=== PATIENT | male | born 1955 | race Caucasian/White ===

== ENCOUNTER → 2016-09-15 | Outpatient (CLI) | payer BC ==
[~2016-09-15] MED LIST: BECL0.072; BENZ200C2 PO; DVN80 PO; FLV1 PO; INSDGI SC; INSDGIPEN SC; INSU1INJ7 SC; INSUINJ14 SC; INSUINJ7 SC; LEVO125T4 PO; LEVO150T9 PO; LEVO175T PO; MTH25 PO; OMEP20CA59 PO; QVRINH40 INH; VALS-56 PO
[2016-09-15 10:02] LABS: BLOOD UREA NITROGEN 21 mg/dl (7-18); CALCIUM 8.8 mg/dl (8.5-10.1); CARBON DIOXIDE 28 mmol/L (21-32); CHLORIDE 103 mmol/L (98-107); GLUCOSE 290 mg/dl (70-99); POTASSIUM 4.5 mmol/L (3.5-5.1); SODIUM 138 mmol/L (136-145)
[2016-09-15 10:06] LABS: ESTIMATED AVERAGE GLUCOSE 180 mg/dl; HA1C FLAG Normal (Normal)
== END | disposition home or self-care (01) ==
LOC: C.LAB1850 07:35
PROVIDERS: ATTEND Internal Medicine
DX: E10.9 Type 1 diabetes mellitus without complications (principal); E03.9 Hypothyroidism, unspecified; I10 Essential (primary) hypertension

== ENCOUNTER → 2016-12-15 | Outpatient (CLI) | payer BC ==
[~2016-12-15] MED LIST changes: -LEVO125T4 PO; +LEVO125T5 PO
[2016-12-15 09:50] LABS: BASO % 0.7 %; BASO ABS # 0.06 K/uL (0-0.2); COMPLETE YES; EOS % 10.2 %; HEMATOCRIT 40.2 % (42-52); IG% 0.1 %; LYMPH % 20.1 %; LYMPH ABS # 1.65 K/uL (1.2-3.4); MEAN CELL VOLUME 95.9 fL (80-100); MEAN CORPUSCULAR HEMOGLOBIN 31.7 pg (25-34); MEAN CORPUSCULAR HGB CONC 33.1 g/dl (32-36); MEAN PLATELET VOLUME 9.1 fL (7.4-10.4); NEUT % 64.9 %; PLATELET COUNT 248 K/uL (130-400); RED BLOOD COUNT 4.19 M/uL (4.7-6.1)
[2016-12-15 10:07] LABS: CALCIUM 9.1 mg/dl (8.5-10.1)
[2016-12-15 10:10] LABS: ALT/SGPT 27 U/L (12-78); AST/SGOT 26 U/L (15-37); BLOOD UREA NITROGEN 21 mg/dl (7-18); BUN/CREATININE RATIO 17.4 (10-20); CARBON DIOXIDE 29 mmol/L (21-32); CHLORIDE 104 mmol/L (98-107); CHOLESTEROL 166 mg/dl (0-200); GLUCOSE 186 mg/dl (70-99); POTASSIUM 4.5 mmol/L (3.5-5.1); SODIUM 138 mmol/L (136-145); TRIGLYCERIDES 93 mg/dl (0-150); VERY LOW DENSITY LIPOPROT CALC 19 mg/dl
[2016-12-15 10:20] LABS: ALB/GLOB RATIO 1.2 (0.9-2); ALKALINE PHOSPHATASE 105 U/L (45-117); CHOLESTEROL/HDL RATIO 2.7; HDL CHOLESTEROL 61 mg/dl; LDL CHOLESTEROL CALCULATED 86 mg/dl; THYROID STIMULATING HORMONE 0.241 uIu/ml (0.300-4.500)
[2016-12-15 10:22] LABS: ESTIMATED AVERAGE GLUCOSE 137 mg/dl; HA1C FLAG Normal (Normal)
[2016-12-15 10:31] LABS: RATIO 15.5 mcg/mg (0-30.0)
== END | disposition home or self-care (01) ==
LOC: C.LAB1850 08:03
PROVIDERS: ATTEND Internal Medicine
DX: E03.9 Hypothyroidism, unspecified (principal); E10.9 Type 1 diabetes mellitus without complications; M05.9 Rheumatoid arthritis with rheumatoid factor, unspecified

== ENCOUNTER 2017-05-20 15:29 | Emergency (ER) | payer BC ==
[~2017-05-20] VITALS: Ht 170.2 cm; Wt 57.2 kg
[~2017-05-20 15:29] MED LIST changes: -FLV1 PO; -INSDGI SC; -LEVO125T5 PO; -LEVO150T9 PO; -MTH25 PO; -QVRINH40 INH; -VALS-56 PO
[2017-05-20 15:32] VITALS: TEMP 36.5; O2SAT 99; Ht 170.2 cm; Wt 57.2 kg
--- NOTE | 2017-05-20 15:42 | EMERGENCY ROOM VISIT NOTE ---
History Report prepared by Cathleen: Valentine Thorne Under the Supervision of: Dr. Dina Rehman D.O. First contact with patient: 15:30 Chief Complaint: HYPOGLYCEMIA Stated Complaint: LOW SUGAR History of Present Illness The patient is a 61 year old male who presents to the Emergency Room with complaints of an episode of hypoglycemia beginning just [employer]. The patient states that he is an insulin dependent diabetic and has a history of rheumatoid arthritis. Per EMS, the patient was found after reports of driving erratically in his car and was not responding to questions normally. They report that his blood sugar was found to be 35 at the time of arrival. The patient states that he remembers being at work today before his called him to tell him that he needed to eat because of his low blood sugar. He reports that he remembers microwaving his food but not consuming it. The patient denies any nausea, sweats , dizziness, chest pain, shortness of breath, recent illness, cough, and chills. Neither police nor bystanders verbalized to EMS any seizure-like activity, just the patient appeared to be staring and not responding appropriately. Source of History: patient Onset: just [employer] Position: other (global) Symptom Intensity: 35 Quality: other (hypoglycemia) Timing: other (episode) Associated Symptoms: No chills, No cough, No chest pain, No SOB, No nausea Note: The patient denies any sweats, dizziness, recent illness. Review of Systems See HPI for pertinent positives & negatives. A total of 10 systems reviewed and were otherwise negative. Past Medical & Surgical Medical Problems: (1) IDDM (insulin dependent diabetes mellitus) (2) Rheumatoid arthritis Family History No pertinent family history stated. Social History Alcohol Use: none Drug Use: none Marital Status: Occupation Status: employed Current/Historical Medications Scheduled Folic Acid (Folic Acid), 1 MG PO DAILY Insulin Glargine (Lantus), 11 UNITS SC QAM Insulin Glargine (Lantus), 5-6 UNITS SC QPM Insulin Regular (Human) (Novolin R U-100), 6 UNITS SC QAM Insulin Regular (Human) (Novolin R U-100), 5-6 UNITS SC QPM Levothyroxine Sodium (Levothyroxine Sodium), 125 MCG PO 2XWK Levothyroxine Sodium (Levothyroxine Sodium), 150 MCG PO 5XWK Methotrexate (Methotrexate), 12.5 MG PO WK Valsartan (Valsartan), 40 MG PO DAILY Scheduled PRN Beclomethasone Dip (Qvar), 2 PUFFS INH BID PRN for SOB/Wheezing Allergies Coded Allergies: No Known Allergies (Unverified , 04/30/12) Physical Exam Vital Signs Date Time Temp Pulse Resp B/P (MAP) Pulse Ox O2 Delivery O2 Flow Rate FiO2 05/20/17 17:24 84 18 157/75 05/20/17 15:32 36.5 95 18 182/89 99 Room Air Physical Exam GENERAL: alert, well appearing, well nourished, no distress, non-toxic EYE EXAM: normal conjunctiva, PERRL and EOM's grossly intact OROPHARYNX: no exudate, no erythema, lips, buccal mucosa, and tongue normal and mucous membranes are moist NECK: supple, no nuchal rigidity, no adenopathy, non-tender LUNGS: Clear to auscultation. Normal chest wall mechanics HEART: no murmurs, S1 normal and S2 normal ABDOMEN: abdomen soft, non-tender, normo-active bowel sounds, no masses, no rebound or guarding. BACK: Back is symmetrical on inspection and there is no deformity, no midline tenderness, no CVA tenderness. SKIN: no rashes and no bruising UPPER EXTREMITIES: upper extremities are grossly normal. LOWER EXTREMITIES: No pitting edema. NEURO EXAM: Normal sensorium, cranial nerves II-XII grossly intact, normal speech, no gross weakness of arms, no gross weakness of legs. Medical Decision & Procedures Laboratory Results Test 05/20/17 17:02 Bedside Glucose 198 mg/dl (70-99) Laboratory results per my review. ECG Indication: syncope Rate (beats per minute): 86 Rhythm: sinus rhythm Findings: T-wave inversion (lead 3 and avf), other (normal axis, normal intervals) Comparison ECG Date: 30-APR-2012 Change: no significant change ED Course 1530: The patient was evaluated in room A11. A complete history and physical exam was performed. 1708: I reevaluated and updated the patient. 1713: Upon reevaluation, the patient is feeling better. I discussed the findings and the treatment plan with the patient. He verbalizes agreement and understanding. The patient was discharged home. Medical Decision Differential diagnosis: Etiologies such as vasovagal event, infection, hypoglycemia, electrolyte abnormalities, cardiac sources, intracerebral event, toxicologic, neurologic, as well as others were entertained. Patient well-appearing here, no recent other symptoms to suggest occult infectious etiology. Patient did not eat and has a history of hypoglycemic episodes as a result. No recent medication changes. Patient with a normal nonfocal neuro exam at bedside, doubt CVA. Doubt left side abnormality, doubt bacteremia/sepsis, patient monitored on telemetry while eating and rechecking sugars no evidence of dysrhythmia or abnormal vital signs. Doubt ACS, dissection, AAA, tamponade, effusion leading to altered mental status and episode today. Advised patient need for frequent Accu-Cheks, eating and drinking at regular intervals to avoid any recurrent hypoglycemic events, encouraged him to follow-up with his family doctor whom he has been working with in trying to obtain a continuous glucose monitor. Discussed symptoms to watch and return for, he and family verbalized understanding were agreeable with plan. Medication Reconcilliation Current Medication List: was personally reviewed by me Blood Pressure Screening Patient's blood pressure: Elevated blood pressure Blood pressure disposition: Referred to PCP Impression Primary Impression: Hypoglycemia Additional Impression: Altered mental status Scribe Attestation The scribe's documentation has been prepared under my direction and personally reviewed by me in its entirety. I confirm that the note above accurately reflects all work, treatment, procedures, and medical decision making performed by me. Departure Information Dispostion Home / Self-Care Referrals Alfred Gage M.D. (PCP) Patient Instructions My [facility] Additional Instructions Please eat at regular intervals and adhere to a diabetic diet. Please check your sugar regularly to avoid any acute drops in your blood sugar. Please drink plenty of water. Please follow up with your family doctor and continue your efforts to trying get continuous insulin monitoring. If you have any recurrent episodes of low blood sugar, or begin feel symptomatic, if you develop episodes of high blood sugar, develop headaches, dizziness, vomiting, chest pain, trouble breathing, or you've any other new concerns, please return the emergency room. Problem Qualifiers Additional Impression: Altered mental status Altered mental status type: transient alteration of awareness Qualified Codes : R40.4 - Transient alteration of awareness
[2017-05-20] MEDS ORDERED: INSDGI SC ×2 (16:28)
[2017-05-20] MEDS ORDERED: MTH25 PO (16:28)
[2017-05-20] MEDS ORDERED: LEVO125T4 PO (16:28)
[2017-05-20] MEDS ORDERED: INSUINJ7 SC ×2 (16:28)
[2017-05-20] MEDS ORDERED: QVRINH40 INH (16:28)
[2017-05-20] MEDS ORDERED: VALS-56 PO (16:28)
[2017-05-20] MEDS ORDERED: FLV1 PO (16:28)
[2017-05-20] MEDS ORDERED: LEVO150T9 PO (16:28)
[2017-05-20 17:24] VITALS: BP 157/75; PULSE 84
== END 2017-05-20 17:26 | disposition home or self-care (01) ==
LOC: EDBD 15:29 → C.EDA 15:29
DX: E16.2 Hypoglycemia, unspecified (principal); R40.4 Transient alteration of awareness; E11.9 Type 2 diabetes mellitus without complications; Z79.4 Long term (current) use of insulin

== ENCOUNTER → 2017-05-29 | Outpatient (CLI) | payer BC ==
[~2017-05-29] MED LIST changes: -BECL0.072; -BENZ200C2 PO; -DVN80 PO; +FLV1 PO; +INSDGI SC; -INSDGIPEN SC; -INSU1INJ7 SC; -INSUINJ14 SC; +LEVO125T4 PO; +LEVO150T9 PO; -LEVO175T PO; +MTH25 PO; -OMEP20CA59 PO; +QVRINH40 INH; +VALS-56 PO
[2017-05-29 18:14] LABS: BLOOD UREA NITROGEN 27 mg/dl (7-18); BUN/CREATININE RATIO 20.6 (10-20); CALCIUM 9.4 mg/dl (8.5-10.1); CARBON DIOXIDE 30 mmol/L (21-32); CHLORIDE 102 mmol/L (98-107); CHOLESTEROL 186 mg/dl (0-200); GLUCOSE 185 mg/dl (70-99); POTASSIUM 4.4 mmol/L (3.5-5.1); SODIUM 136 mmol/L (136-145)
[2017-05-29 18:24] LABS: CHOLESTEROL/HDL RATIO 2.6; HDL CHOLESTEROL 72 mg/dl; LDL CHOLESTEROL CALCULATED 100 mg/dl; TRIGLYCERIDES 68 mg/dl (0-150); VERY LOW DENSITY LIPOPROT CALC 14 mg/dl
[2017-05-30 05:56] LABS: ESTIMATED AVERAGE GLUCOSE 134 mg/dl; HA1C FLAG Normal (Normal)
== END | disposition home or self-care (01) ==
LOC: C.LAB1850 16:21
PROVIDERS: ATTEND Internal Medicine
DX: Z00.00 Encounter for general adult medical examination without abnormal findings (principal); E03.9 Hypothyroidism, unspecified; E10.9 Type 1 diabetes mellitus without complications; E78.5 Hyperlipidemia, unspecified; I10 Essential (primary) hypertension

== ENCOUNTER 2017-08-09 09:00 | Emergency (ER) | payer BC ==
[~2017-08-09] VITALS: Ht 170.2 cm; Wt 57.0 kg
[~2017-08-09 09:00] MED LIST changes: -LEVO125T4 PO; +LEVO125T5 PO
[2017-08-09 09:08] VITALS: TEMP 36.5
[2017-08-09 09:15] VITALS: O2SAT 100; Ht 170.2 cm; Wt 57.0 kg
[2017-08-09] MEDS ORDERED: OPTIRAY 320 IV PRN (09:15)
--- NOTE | 2017-08-09 09:23 | EMERGENCY ROOM VISIT NOTE ---
History Report prepared by Cathleen: Lacie Green Under the Supervision of: Dr. Kee Evangelista M.D. First contact with patient: 09:05 Chief Complaint: ALTERED MENTAL STATUS Stated Complaint: ALTERED MENTAL STATUS History of Present Illness The patient is a 62 year old white male with a past medical history of diabetes and rheumatoid arthritis who presents to the ED with a cc of resolved confusion beginning around 0800 this morning. Per the patient's coworker the patient was seen stumbling down the hallway at work with a gash on his head. She states that the patient was confused and thought that this was due to low blood sugar. The patient's coworker notes that she gave the patient sugar tablets, but states that since the patient was still confused they called for an ambulance. She denies seeing the patient prior to 0800 this morning. The patient states that he remembers going to work this morning and remembers taking his insulin. He denies any drug, tobacco, or alcohol use. The patient denies any history of seizures. He denies any prior surgeries. The patient denies taking any blood thinners. Per EMS the patient's blood sugar was 219 mg/dL upon arrival. Source of History: patient Onset: 0800 this morning Position: other (global) Quality: other (confusion) Timing: resolved Review of Systems See HPI for pertinent positives and negatives. A total of ten systems were reviewed and were otherwise negative. Past Medical & Surgical Medical Problems: (1) IDDM (insulin dependent diabetes mellitus) (2) Rheumatoid arthritis Family History No pertinent family history stated. Social History Smoking Status: Never Smoker Alcohol Use: none Drug Use: none Marital Status: Occupation Status: employed Current/Historical Medications Scheduled Amoxicillin & Pot Clavulanate (Augmentin 875-125 mg), 875 MG PO BID Folic Acid (Folic Acid), 1 MG PO DAILY Insulin Glargine (Lantus), 16 UNITS SC DAILY Insulin Human Regular (Humulin R), 5-6 UNITS INJ BID Levothyroxine Sodium (Levothyroxine Sodium), 125 MCG PO 2XWK Levothyroxine Sodium (Levothyroxine Sodium), 150 MCG PO 5XWK Methotrexate (Methotrexate), 12.5 MG PO WK Valsartan (Valsartan), 40 MG PO DAILY Scheduled PRN Beclomethasone Dip (Qvar), 2 PUFFS INH BID PRN for SOB/Wheezing Allergies Coded Allergies: No Known Allergies (Unverified , 04/30/12) Physical Exam Vital Signs Date Time Temp Pulse Resp B/P (MAP) Pulse Ox O2 Delivery O2 Flow Rate FiO2 08/09/17 14:45 72 16 119/81 99 Room Air 08/09/17 14:32 77 08/09/17 14:00 72 16 119/81 99 Room Air 08/09/17 12:46 85 18 134/82 98 Room Air 08/09/17 11:00 79 20 118/63 96 Room Air 08/09/17 10:00 87 16 132/76 99 Room Air 08/09/17 09:15 100 Room Air 08/09/17 09:08 96 08/09/17 09:08 36.5 93 21 156/94 94 Room Air Physical Exam GENERAL: Awake, alert, well-appearing, NAD HENT: Very small 1 cm laceration to the left occipital area. Poor dentition. EYES: Normal conjunctiva. Sclera non-icteric. No visual field deficits, no blurry vision or double vision. NECK: Supple. No nuchal rigidity. FROM. RESPIRATORY: CTAB, no rhonchi, wheezing, crackles CARDIAC: RRR, no MRG ABDOMEN: Soft, NTND, BS+ MSK: No chest wall TTP, no LE edema NEURO: CN 2-12 intact, 5/5 upper and lower extremity strength, no dysmetria, no drift, good finger to nose, no sensory deficits. SKIN: No rash or jaundice noted. Medical Decision & Procedures ER Provider Diagnostic Interpretation: Radiology results as stated below per my review and radiologist interpretation: HEAD CT NONCONTRAST CT DOSE: 614.27 mGy.cm HISTORY: Altered mental status. Confusion. TECHNIQUE: Multiaxial CT images of the head were performed without the use of intravenous contrast. Automated exposure control was utilized for this study. A dose lowering technique was utilized adhering to the principles of ALARA. Comparison: None. Findings: Complete opacification of the left frontal sinus, left ethmoid air cells, and left sphenoid sinus. Trace fluid levels within the maxillary sinuses and partial opacification the right ethmoid air cells and right frontal sinus. There are few small fluid levels within the right ethmoid air cells and right frontal sinus. Suspect a 1.9 cm polyp within the left nasal cavity. The mastoid air cells are clear. The calvarium and skull base are intact. The ventricles and sulci are within normal limits. There is no mass, hematoma, midline shift, or acute infarct. Impression: No acute intracranial abnormality. Acute on chronic paranasal sinus disease as described above with probable underlying polyps. Electronically signed by: Jose Eduardo Diaz M.D. 08/09/2017 9:34 AM Dictated Date/Time: 08/09/2017 9:30 AM CHEST ONE VIEW PORTABLE HISTORY: confusion COMPARISON: Chest 04/30/2012. FINDINGS: The heart is normal in size. There are mitral annulus calcifications. The right lung is clear. No pleural effusions. No pneumothorax. Small focal area of increased density within the left lower lobe adjacent to the cardiac apex. This could be due to the overlapping ribs. IMPRESSION: Small focal area of increased density within the left lower lobe which could be due to the overlapping ribs. However, this is asymmetric and is concerning for a developing airspace opacity/pneumonia. Follow-up chest x-ray in one month is recommended to ensure resolution. Electronically signed by: Jose Eduardo Diaz M.D. 08/09/2017 10:13 AM Dictated Date/Time: 08/09/2017 10:11 AM Brain MRI WITH AND WITHOUT CONTRAST HISTORY: ?confusion, altered mental status., neg CT and neg metabolic work up TECHNIQUE: Multiplanar multisequence MRI of the brain was performed both before and after the intravenous administration of contrast. COMPARISON STUDY: Head CT 08/09/2017. FINDINGS: There is no mass, hematoma, midline shift, acute infarct. The major vascular flow voids at the skull base are well-maintained. The ventricles and sulci are within normal limits. Near-complete opacification of the frontal sinuses, ethmoid air cells, and left sphenoid sinus. Trace fluid levels within the maxillary sinuses. Probable underlying polyps within the ethmoid air cells. The mastoid air cells are clear. The orbits are unremarkable. No abnormal enhancement within the brain. IMPRESSION: 1. No acute intracranial abnormality. 2. Acute on chronic paranasal sinus disease as described above. There is suggestion of underlying sinonasal polyps. Electronically signed by: Jose Eduardo Diaz M.D. 08/09/2017 1:59 PM Dictated Date/Time: 08/09/2017 1:53 PM Laboratory Results 08/09/17 09:39 Red Blood Count 3.76, Mean Corpuscular Volume 95.7, Mean Corpuscular Hemoglobin 33.5, Mean Corpuscular Hemoglobin Concent 35.0, Mean Platelet Volume 9.1, Neutrophils (%) (Auto) 75.7, Lymphocytes (%) (Auto) 11.0, Monocytes (%) (Auto) 5.6, Eosinophils (%) (Auto) 6.8, Basophils (%) (Auto) 0.6, Neutrophils # (Auto) 5.43, Lymphocytes # (Auto) 0.79, Monocytes # (Auto) 0.40, Eosinophils # (Auto) 0.49, Basophils # (Auto) 0.04 08/09/17 09:39 Test 08/09/17 00:00 08/09/17 09:20 08/09/17 09:38 08/09/17 09:39 Urine Color YELLOW Urine Appearance CLEAR (CLEAR) Urine pH 6.5 (4.5-7.5) Urine Specific [place] 1.021 (1.000-1.030) Urine Protein NEG (NEG) Urine Glucose (UA) 3+ (NEG) Urine Ketones NEG (NEG) Urine Occult Blood NEG (NEG) Urine Nitrite NEG (NEG) Urine Bilirubin NEG (NEG) Urine Urobilinogen NEG (NEG) Urine Leukocyte Esterase NEG (NEG) Urine Opiates Screen NEG (NEG) Urine Methadone, Qualitative NEG (NEG) Urine Barbiturates NEG (NEG) Urine Phencyclidine (PCP) Level NEG (NEG) Ur Amphetamine/Methamphetamine NEG (NEG) MDMA (Ecstasy) Screen NEG (NEG) Urine Benzodiazepines Screen NEG (NEG) Urine Cocaine Metabolite NEG (NEG) Urine Marijuana (THC) NEG (NEG) Bedside Hemoglobin 12.2 g/dl (14.0-18.0) Bedside Hematocrit 36 % (42-52) Bedside Sodium 138 mEq/L (135-144) Bedside Potassium 4.9 mEq/L (3.3-5.0) Bedside Chloride 103 mEq/L (101-112) Bedside Total CO2 26 mEq/l (24-31) Bedside Blood Urea Nitrogen 21 mg/dl (7-18) Bedside Creatinine 1.1 mg/dl (0.6-1.3) Bedside Glucose (other) 234 mg/dl (70-99) Bedside Ionized Calcium ([place]ary) 1.22 mmol/l (1.12-1.32) Prothrombin Time 10.6 SECONDS (9.0-12.0) Prothromb Time International Ratio 1.0 (0.9-1.1) Activated Partial Thromboplast Time 23.1 SECONDS (21.0-31.0) Partial Thromboplastin Ratio 0.9 Ammonia < 10.0 umol/L (11-32) Salicylates Level < 1.7 mg/dl (2.8-20) Acetaminophen Level < 2 ug/ml (10-30) White Blood Count 7.17 K/uL (4.8-10.8) Red Blood Count 3.76 M/uL (4.7-6.1) Hemoglobin 12.6 g/dL (14.0-18.0) Hematocrit 36.0 % (42-52) Mean Corpuscular Volume 95.7 fL (80-100) Mean Corpuscular Hemoglobin 33.5 pg (25-34) Mean Corpuscular Hemoglobin Concent 35.0 g/dl (32-36) Platelet Count 231 K/uL (130-400) Mean Platelet Volume 9.1 fL (7.4-10.4) Neutrophils (%) (Auto) 75.7 % Lymphocytes (%) (Auto) 11.0 % Monocytes (%) (Auto) 5.6 % Eosinophils (%) (Auto) 6.8 % Basophils (%) (Auto) 0.6 % Neutrophils # (Auto) 5.43 K/uL (1.4-6.5) Lymphocytes # (Auto) 0.79 K/uL (1.2-3.4) Monocytes # (Auto) 0.40 K/uL (0.11-0.59) Eosinophils # (Auto) 0.49 K/uL (0-0.5) Basophils # (Auto) 0.04 K/uL (0-0.2) RDW Standard Deviation 48.3 fL (36.4-46.3) RDW Coefficient of Variation 14.0 % (11.5-14.5) Immature Granulocyte % (Auto) 0.3 % Immature Granulocyte # (Auto) 0.02 K/uL (0.00-0.02) Anion Gap 4.0 mmol/L (3-11) Est Creatinine Clear Calc Drug Dose 52.3 ml/min Estimated GFR () 77.5 Estimated GFR (Non- 66.9 BUN/Creatinine Ratio 18.0 (10-20) Lactic Acid Level 1.5 mmol/L (0.4-2.0) Calcium Level 8.7 mg/dl (8.5-10.1) Magnesium Level 2.2 mg/dl (1.8-2.4) Total Bilirubin 0.7 mg/dl (0.2-1) Direct Bilirubin 0.3 mg/dl (0-0.2) Aspartate Amino Transf (AST/SGOT) 34 U/L (15-37) Alanine Aminotransferase (ALT/SGPT) 32 U/L (12-78) Alkaline Phosphatase 105 U/L (45-117) Troponin I < 0.015 ng/ml (0-0.045) Total Protein 6.7 gm/dl (6.4-8.2) Albumin 3.4 gm/dl (3.4-5.0) Lipase 594 U/L (73-393) Thyroid Stimulating Hormone (TSH) 0.269 uIu/ml (0.300-4.500) Ethyl Alcohol mg/dL < 3.0 mg/dl (0-3) Test 08/09/17 14:41 Bedside Glucose 115 mg/dl (70-99) Laboratory results reviewed by me Medications Administered Medications (Trade) Dose Ordered Sig/Will Route Start Time Stop Time Status Last Admin Dose Admin Diphtheria/ Pertussis/Tetanus Vacc (Adacel Inj) 0.5 ml ONCE ONCE IM. 08/09/17 10:00 08/09/17 10:01 DC 08/09/17 10:09 0.5 ML Amoxicillin/ Clavulanate Potassium (Augmentin Tab) 875 mg NOW ONCE PO 08/09/17 14:15 08/09/17 14:16 DC 08/09/17 14:45 875 MG ECG Indication: altered mental status Rate (beats per minute): 98 Rhythm: normal sinus Findings: other (normal intervals, normal axis, no other STS changes or TWI) ED Course 09: The patient was evaluated in room A2. A complete history and physical exam was performed. 1209: I reevaluated the patient and he is resting comfortably. He states that he has had seizures in the past with hypoglycemia. 1425: I reevaluated the patient and he is resting comfortably. I discussed the test results with him and I discussed the treatment plan. He verbalized complete understanding and agreement. He is ready to go home. Medical Decision Differential diagnosis: Etiologies such as metabolic, infection, hypoglycemia, electrolyte abnormalities , cardiac sources, intracerebral event, toxicologic, neurologic, as well as others were entertained. The patient is a 62 year old white male with a past medical history of diabetes and rheumatoid arthritis who presents to the ED with a cc of resolved confusion beginning around 0800 this morning. Patient was seen and evaluated at the bedside. I did receive a medical command call for the patient as he was found at work confused with a small cut to the back of his head. Patient states he does remember getting to work through this morning. Patient is alert and oriented 3. He is able to recognize the people that he knows in the room which include his and coworker. Patient has a nonfocal neurologic exam. Patient did have blood work completed along with a CT brain, chest x-ray, toxic screen and metabolic workup. Patient does have some mild anemia. White blood cell count is normal. Patient is afebrile vital signs are stable. I did discuss the possibility of a seizure however the patient has a normal bicarbonate and normal lactate. Patient has normal kidney function. Patient has a negative CT of the brain. Patient's chest x-ray shows a questionable pneumonia. Patient was given first dose of antibiotics. Did obtain an MRI combo given the questionable altered mental status. MRI was negative. Discussed with the patient is in a symptomatic hypoglycemic seizure however the patient has had no issues with the sugars here. Patient tolerated by mouth the patient had a recheck of his sugar which was greater than 100. Patient was told to follow-up with his PCP. Patient was deemed suitable for outpatient follow-up and treatment.Patient was given strict follow-up, discharge , and return precautions. All questions were answered. Patient was deemed suitable for outpatient follow-up at this time. Patient agreed with the plan of care and was safely discharged home. Medication Reconcilliation Current Medication List: was personally reviewed by me Impression Primary Impression: Altered mental status Additional Impressions: Pneumonia Anemia Scribe Attestation The scribe's documentation has been prepared under my direction and personally reviewed by me in its entirety. I confirm that the note above accurately reflects all work, treatment, procedures, and medical decision making performed by me. Departure Information Dispostion Home / Self-Care Prescriptions Amoxicillin & Pot Clavulanate (Augmentin 875-125 mg) 1 Tab Tab 875 MG PO BID for 7 Days, #14 TAB Prov: Kee Evangelista M.D. 08/09/17 Referrals Alfred Gage M.D. (PCP) Patient Instructions ED Pneumonia Adult, My [facility] Additional Instructions Please return to the emergency department if you have worsening or recurrent symptoms not amenable to at-home treatment. Please call for a follow-up appointment with her primary care physician. Please take your medications as prescribed. If you have other concerns and/or complaints please feel free to also call your primary care physician's office or return the ED for further evaluation, management, and treatment. Take your medications as prescribed. You have been examined and treated today on an emergency basis only. This is not a substitute for, or an effort to provide, complete comprehensive medical care. It is impossible to recognize and treat all injuries or illnesses in a single emergency department visit. It is therefore important that you follow up closely with [facility], your PCP, and/or your specialist(s). Call as soon as possible for an appointment. Thank you for your time and consideration. I look forward to speaking with you again soon. Please don't hesitate to call us if you have any questions. Problem Qualifiers Primary Impression: Altered mental status Altered mental status type: unspecified Qualified Codes: R41.82 - Altered mental status, unspecified Additional Impressions: Pneumonia Pneumonia type: due to unspecified organism Laterality: left Lung location : lower lobe of lung Qualified Codes: J18.1 - Lobar pneumonia, unspecified organism Anemia Anemia type: unspecified type Qualified Codes: D64.9 - Anemia, unspecified
--- NOTE | 2017-08-09 09:35 | DIAGNOSTIC IMAGING REPORT ---
HEAD CT NONCONTRAST CT DOSE: 614.27 mGy.cm HISTORY: Altered mental status. Confusion. TECHNIQUE: Multiaxial CT images of the head were performed without the use of intravenous contrast. Automated exposure control was utilized for this study. A dose lowering technique was utilized adhering to the principles of ALARA. Comparison: None. Findings: Complete opacification of the left frontal sinus, left ethmoid air cells, and left sphenoid sinus. Trace fluid levels within the maxillary sinuses and partial opacification the right ethmoid air cells and right frontal sinus. There are few small fluid levels within the right ethmoid air cells and right frontal sinus. Suspect a 1.9 cm polyp within the left nasal cavity. The mastoid air cells are clear. The calvarium and skull base are intact. The ventricles and sulci are within normal limits. There is no mass, hematoma, midline shift, or acute infarct. Impression: No acute intracranial abnormality. Acute on chronic paranasal sinus disease as described above with probable underlying polyps. Electronically signed by: Jose Eduardo Diaz M.D. 08/09/2017 9:34 AM Dictated Date/Time: 08/09/2017 9:30 AM
[2017-08-09 09:40] LABS: ISTAT CREATININE 1.1 mg/dl (0.6-1.3); ISTAT HEMOGLOBIN 12.2 g/dl (14.0-18.0); ISTAT IONIZED CALCIUM 1.22 mmol/l (1.12-1.32)
[2017-08-09 09:53] LABS: BASO % 0.6 %; BASO ABS # 0.04 K/uL (0-0.2); COMPLETE YES; EOS % 6.8 %; IG% 0.3 %; LYMPH ABS # 0.79 K/uL (1.2-3.4); MEAN CELL VOLUME 95.7 fL (80-100); MEAN CORPUSCULAR HEMOGLOBIN 33.5 pg (25-34); MEAN PLATELET VOLUME 9.1 fL (7.4-10.4); MONO % 5.6 %; NEUT % 75.7 %; PLATELET COUNT 231 K/uL (130-400); RED BLOOD COUNT 3.76 M/uL (4.7-6.1); WHITE BLOOD COUNT 7.17 K/uL (4.8-10.8)
[2017-08-09] MEDS ORDERED: INSHRIE INJ (09:56)
[2017-08-09] MEDS ORDERED: DIPHTHERIA/TETANUS/PERTUSSIS 0.5 ML SYR/VIAL IM. ONE (10:00)
[2017-08-09 10:01] LABS: PARTIAL THROMBOPLASTIN RATIO 0.9; PROTHROMBIN TIME (PATIENT) 10.6 SECONDS (9.0-12.0)
--- NOTE | 2017-08-09 10:14 | DIAGNOSTIC IMAGING REPORT ---
CHEST ONE VIEW PORTABLE HISTORY: confusion COMPARISON: Chest 04/30/2012. FINDINGS: The heart is normal in size. There are mitral annulus calcifications. The right lung is clear. No pleural effusions. No pneumothorax. Small focal area of increased density within the left lower lobe adjacent to the cardiac apex. This could be due to the overlapping ribs. IMPRESSION: Small focal area of increased density within the left lower lobe which could be due to the overlapping ribs. However, this is asymmetric and is concerning for a developing airspace opacity/pneumonia. Follow-up chest x-ray in one month is recommended to ensure resolution. Electronically signed by: Jose Eduardo Diaz M.D. 08/09/2017 10:13 AM Dictated Date/Time: 08/09/2017 10:11 AM
[2017-08-09 10:15] LABS: CALCIUM 8.7 mg/dl (8.5-10.1); CREATININE 1.15 mg/dl (0.60-1.40); MAGNESIUM 2.2 mg/dl (1.8-2.4); POTASSIUM 4.7 mmol/L (3.5-5.1)
[2017-08-09 10:22] LABS: ACETAMINOPHEN < 2 ug/ml (10-30)
[2017-08-09 10:26] LABS: THYROID STIMULATING HORMONE 0.269 uIu/ml (0.300-4.500)
[2017-08-09 13:14] LABS: URINE APPEARANCE CLEAR (CLEAR); URINE BILIRUBIN NEG (NEG); URINE COLOR YELLOW; URINE NITRITE NEG (NEG); URINE PH 6.5 (4.5-7.5); URINE SPECIFIC GRAVITY 1.021 (1.000-1.030); UROBILINOGEN NEG (NEG)
[2017-08-09 13:20] LABS: MANUAL MICROSCOPIC REQUIRED? NO; REVIEW REQ? NO
[2017-08-09 13:51] LABS: BENZODIAZEPINE, URINE NEG (NEG); COCAINE,URINE NEG (NEG); PHENCYCLIDINE, URINE NEG (NEG)
[2017-08-09] MEDS ORDERED: GADAVIST IV PRN (14:00)
--- NOTE | 2017-08-09 14:01 | DIAGNOSTIC IMAGING REPORT ---
Brain MRI WITH AND WITHOUT CONTRAST HISTORY: ?confusion, altered mental status., neg CT and neg metabolic work up TECHNIQUE: Multiplanar multisequence MRI of the brain was performed both before and after the intravenous administration of contrast. COMPARISON STUDY: Head CT 08/09/2017. FINDINGS: There is no mass, hematoma, midline shift, acute infarct. The major vascular flow voids at the skull base are well-maintained. The ventricles and sulci are within normal limits. Near-complete opacification of the frontal sinuses, ethmoid air cells, and left sphenoid sinus. Trace fluid levels within the maxillary sinuses. Probable underlying polyps within the ethmoid air cells. The mastoid air cells are clear. The orbits are unremarkable. No abnormal enhancement within the brain. IMPRESSION: 1. No acute intracranial abnormality. 2. Acute on chronic paranasal sinus disease as described above. There is suggestion of underlying sinonasal polyps. Electronically signed by: Jose Eduardo Diaz M.D. 08/09/2017 1:59 PM Dictated Date/Time: 08/09/2017 1:53 PM
[2017-08-09] MEDS ORDERED: AMOXICILLIN/CLAVULANATE TAB 875 MG TAB PO ONE (14:15)
[2017-08-09 14:45] VITALS: BP 119/81; PULSE 72; O2SAT 99
[2017-08-09] MEDS ORDERED: AMOX875T PO (14:54)
== END 2017-08-09 15:05 | disposition home or self-care (01) ==
LOC: EDBD 09:00 → C.EDA 09:04
DX: R41.82 Altered mental status, unspecified (principal); J18.1 Lobar pneumonia, unspecified organism; D64.9 Anemia, unspecified; E11.9 Type 2 diabetes mellitus without complications; R06.9 Unspecified abnormalities of breathing; Z23 Encounter for immunization; Z79.4 Long term (current) use of insulin; Z79.899 Other long term (current) drug therapy

== ENCOUNTER 2017-09-24 01:45 | Emergency (ER) | payer BC ==
[~2017-09-24] VITALS: Ht 170.2 cm; Wt 51.9 kg
[~2017-09-24 01:45] MED LIST changes: +INSHRIE INJ; -INSUINJ7 SC
[2017-09-24] MEDS ORDERED: ONDANSETRON INJ 2 MG/ML 2 ML VIAL ONE (01:51)
[2017-09-24 01:53] VITALS: TEMP 36.4; Ht 170.2 cm; Wt 51.9 kg
[2017-09-24] MEDS ORDERED: NAPR-1169 PO (02:13)
[2017-09-24] MEDS ORDERED: NVLGI/PEN SQ (02:17)
[2017-09-24] MEDS ORDERED: GLGKIT SQ (02:18)
--- NOTE | 2017-09-24 02:49 | EMERGENCY ROOM VISIT NOTE ---
History Report prepared by Cathleen: Nathan Barakat Under the Supervision of: Dr. Veronica Martines D.O. First contact with patient: 02:23 Chief Complaint: HYPOGLYCEMIA Stated Complaint: DIABETIC EMERGENCY Nursing Triage Summary: pt reports that he took his insulin at 2100 lat night. ems reports that woke up and heard pt gasping and found him clenched and unresponsive. attempted to given oral glucose without success. bsg on arrival of ems was 22. pt was given 25gm dextrose and 4 zofran. pt only complaint is nausea. last bsg for ems was 129 History of Present Illness The patient is a 62 year old male who presents to the Emergency Room via EMS with complaints of constant hypoglycemia for the past day. Patient is present with his . Patient states that he took insulin before dinner. adds that patient's glucose level was 220 before dinner. states that for dinner the patient had zucchini noodles with pasta sauce, potato chips, a [place] almond bar, and a chocolate chip cookie. Patient states that he does not take insulin prior to going to bed. Patient states that he takes his insulin on a sliding scale. Patient states that he felt fine during the day and rode his bike for 10-15 minutes. Patient states that he usually rides his bike. The awoke to the patient with snoring respirations and a very low blood sugar. states that the patient was given oral glucose and EMS was called. states that the patient vomited in the ambulance on his way to the ER. Patient denies symptoms of leg cramping, leg swelling, or abdominal pain. Source of History: patient Onset: 1 day ago Position: other (Global) Timing: constant Modifying Factors (Relieving): other (None) Associated Symptoms: + vomiting, No abdominal pain Note: Patient denies leg swelling and leg cramping. Review of Systems See HPI for pertinent positives & negatives. A total of 10 systems reviewed and were otherwise negative. Past Medical & Surgical Medical Problems: (1) IDDM (insulin dependent diabetes mellitus) (2) Rheumatoid arthritis Family History No pertinent family history. Social History Smoking Status: Never Smoker Alcohol Use: none Drug Use: none Marital Status: Occupation Status: employed Current/Historical Medications Scheduled Folic Acid (Folic Acid), 1 MG PO DAILY Glucagon (Glucagon Emergency Kit), 1 DOSE SQ DIRECTED Insulin Aspart (Novolog Flexpen), Unknown Dose SQ DIRECTED Insulin Glargine (Lantus), 16 UNITS SC DAILY Insulin Human Regular (Humulin R), 5-6 UNITS INJ BID Levothyroxine Sodium (Levothyroxine Sodium), 125 MCG PO 2XWK Levothyroxine Sodium (Levothyroxine Sodium), 150 MCG PO 5XWK Methotrexate (Methotrexate), 12.5 MG PO WK Naproxen (Naprosyn), 500 MG PO BID Valsartan (Valsartan), 40 MG PO DAILY Scheduled PRN Beclomethasone Dip (Qvar), 2 PUFFS INH BID PRN for SOB/Wheezing Allergies Coded Allergies: No Known Allergies (Unverified , 09/24/17) Physical Exam Vital Signs Date Time Temp Pulse Resp B/P (MAP) Pulse Ox O2 Delivery O2 Flow Rate FiO2 09/24/17 05:52 95 20 105/51 96 09/24/17 04:49 88 16 134/76 100 Room Air 09/24/17 03:53 88 16 119/66 100 Room Air 09/24/17 02:38 90 16 114/63 100 Room Air 09/24/17 02:34 86 09/24/17 01:53 36.4 92 16 142/72 99 Room Air Physical Exam HEENT: Head - normocephalic and atraumatic Pupils are equal, round, and reactive to light. Extraocular eye muscles are intact, and sclera are anicteric. Nose - moist nasal mucosa without discharge. Mouth - moist buccal mucosa. Oropharynx is nonerythematous and there is no tonsillar exudate or edema noted. Neck: Supple; no cervical lymphadenopathy or JVD. Heart: Regular rate and rhythm. There is a normal S1 and S2 with no murmurs, clicks, or gallops appreciated. Lungs: Clear to auscultation bilaterally with no wheezes, rales, or rhonchi. Abdomen: Soft, completely nontender, nondistended, with good bowel sounds. There are no palpable pulsatile masses or hepatosplenomegaly. There is no guarding, rigidity, or rebound noted. Extremities: No evidence of cyanosis, clubbing, or edema. There are easily palpable peripheral pulses. Skin: warm and dry with good turgor and no rashes. Medical Decision & Procedures Laboratory Results 09/24/17 02:45 Red Blood Count 4.09, Mean Corpuscular Volume 96.6, Mean Corpuscular Hemoglobin 33.7, Mean Corpuscular Hemoglobin Concent 34.9, Mean Platelet Volume 9.0, Neutrophils (%) (Auto) 81.4, Lymphocytes (%) (Auto) 11.8, Monocytes (%) (Auto) 5.2, Eosinophils (%) (Auto) 1.2, Basophils (%) (Auto) 0.2, Neutrophils # (Auto) 6.78, Lymphocytes # (Auto) 0.98, Monocytes # (Auto) 0.43, Eosinophils # (Auto) 0.10, Basophils # (Auto) 0.02 09/24/17 02:45 Test 09/24/17 02:45 09/24/17 03:50 09/24/17 05:32 White Blood Count 8.33 K/uL (4.8-10.8) Red Blood Count 4.09 M/uL (4.7-6.1) Hemoglobin 13.8 g/dL (14.0-18.0) Hematocrit 39.5 % (42-52) Mean Corpuscular Volume 96.6 fL (80-100) Mean Corpuscular Hemoglobin 33.7 pg (25-34) Mean Corpuscular Hemoglobin Concent 34.9 g/dl (32-36) Platelet Count 208 K/uL (130-400) Mean Platelet Volume 9.0 fL (7.4-10.4) Neutrophils (%) (Auto) 81.4 % Lymphocytes (%) (Auto) 11.8 % Monocytes (%) (Auto) 5.2 % Eosinophils (%) (Auto) 1.2 % Basophils (%) (Auto) 0.2 % Neutrophils # (Auto) 6.78 K/uL (1.4-6.5) Lymphocytes # (Auto) 0.98 K/uL (1.2-3.4) Monocytes # (Auto) 0.43 K/uL (0.11-0.59) Eosinophils # (Auto) 0.10 K/uL (0-0.5) Basophils # (Auto) 0.02 K/uL (0-0.2) RDW Standard Deviation 46.6 fL (36.4-46.3) RDW Coefficient of Variation 13.4 % (11.5-14.5) Immature Granulocyte % (Auto) 0.2 % Immature Granulocyte # (Auto) 0.02 K/uL (0.00-0.02) Anion Gap 3.0 mmol/L (3-11) Est Creatinine Clear Calc Drug Dose 47.2 ml/min Estimated GFR () 76.7 Estimated GFR (Non- 66.2 BUN/Creatinine Ratio 16.1 (10-20) Calcium Level 8.7 mg/dl (8.5-10.1) Total Bilirubin 0.5 mg/dl (0.2-1) Aspartate Amino Transf (AST/SGOT) 26 U/L (15-37) Alanine Aminotransferase (ALT/SGPT) 25 U/L (12-78) Alkaline Phosphatase 120 U/L (45-117) Total Protein 7.1 gm/dl (6.4-8.2) Albumin 3.6 gm/dl (3.4-5.0) Globulin 3.5 gm/dl (2.5-4.0) Albumin/Globulin Ratio 1.0 (0.9-2) Urine Color YELLOW Urine Appearance CLEAR (CLEAR) Urine pH 6.0 (4.5-7.5) Urine Specific [place] 1.021 (1.000-1.030) Urine Protein NEG (NEG) Urine Glucose (UA) 3+ (NEG) Urine Ketones NEG (NEG) Urine Occult Blood NEG (NEG) Urine Nitrite NEG (NEG) Urine Bilirubin NEG (NEG) Urine Urobilinogen NEG (NEG) Urine Leukocyte Esterase NEG (NEG) Bedside Glucose 143 mg/dl (70-99) Laboratory results per my review. Medications Administered Medications (Trade) Dose Ordered Sig/Will Route Start Time Stop Time Status Last Admin Dose Admin Ondansetron HCl (Zofran Inj) 4 mg STK-MED ONCE .ROUTE 09/24/17 01:51 09/24/17 01:52 DC 09/24/17 01:56 4 MG ED Course 0226: Past medical records reviewed. The patient was evaluated in room A2. A complete history and physical exam was performed. Laboratory studies were drawn as above. The patient was fed. 0416: Patient blood glucose level = 32. The patient was given more food. 0435: I reassessed the patient who is eating a lot of food. 0535: Upon reevaluation, the patient is resting comfortably. Patient's glucose level is 130. I discussed findings and results with him. He verbalized agreement of the treatment plan. He was discharged home. Medical Decision The patient is a 62 year old male who presents to the ED with hypoglycemia. Differential diagnosis includes hypoglycemia, mal nutrition, and insulin overdose. Lab results show normal white count, hemoglobin = 13.8, BUN = 19, creatinine = 1.1, glucose = 82, LFTs normal,and urine 3+ glucose. This is a 62-year-old male patient with a history of diabetes who had an episode of hypoglycemia. The patient describes having some extreme lows for his blood sugar over the past couple of weeks. He is scheduled to have a pump placed on Monday. The patient is unsure why his sugar continues to go low. He was able to eat here in the emergency department and the sugar finally stated above 100. I've encouraged him to watch his sugar very closely until pump is placed. Medication Reconcilliation Current Medication List: was personally reviewed by me Blood Pressure Screening Patient's blood pressure: Normal blood pressure Blood pressure disposition: Did not require urgent referral Impression Primary Impression: Hypoglycemia Scribe Attestation The scribe's documentation has been prepared under my direction and personally reviewed by me in its entirety. I confirm that the note above accurately reflects all work, treatment, procedures, and medical decision making performed by me. Departure Information Dispostion Home / Self-Care Referrals Alfred Gage M.D. (PCP) Forms HOME CARE DOCUMENTATION FORM, IMPORTANT VISIT INFORMATION, WORK / SCHOOL INSTRUCTIONS Patient Instructions My [facility] [place] Additional Instructions Rest Take a well balanced diet. Check blood sugar every 2 hours throughout the day today. Follow up with endocrinology tomorrow morning
[2017-09-24 03:34] LABS: ALBUMIN 3.6 gm/dl (3.4-5.0); CALCIUM 8.7 mg/dl (8.5-10.1); CREATININE 1.16 mg/dl (0.60-1.40); POTASSIUM 3.9 mmol/L (3.5-5.1)
[2017-09-24 03:37] LABS: TOTAL PROTEIN 7.1 gm/dl (6.4-8.2)
[2017-09-24 03:41] LABS: BASO % 0.2 %; BASO ABS # 0.02 K/uL (0-0.2); EOS % 1.2 %; HEMATOCRIT 39.5 % (42-52); HEMOGLOBIN 13.8 g/dL (14.0-18.0); IG# 0.02 K/uL (0.00-0.02); LYMPH % 11.8 %; LYMPH ABS # 0.98 K/uL (1.2-3.4); MEAN CELL VOLUME 96.6 fL (80-100); MEAN CORPUSCULAR HEMOGLOBIN 33.7 pg (25-34); MEAN CORPUSCULAR HGB CONC 34.9 g/dl (32-36); MONO % 5.2 %; MONO ABS # 0.43 K/uL (0.11-0.59); NEUT % 81.4 %; NEUT ABS # 6.78 K/uL (1.4-6.5); PLATELET COUNT 208 K/uL (130-400); RED CELL DISTRIBUTION WIDTH CV 13.4 % (11.5-14.5); RED CELL DISTRIBUTION WIDTH SD 46.6 fL (36.4-46.3); WHITE BLOOD COUNT 8.33 K/uL (4.8-10.8)
[2017-09-24 05:52] VITALS: BP 105/51; PULSE 95; O2SAT 96
== END 2017-09-24 05:57 | disposition home or self-care (01) ==
LOC: EDBD 01:45 → C.EDA 01:46
DX: E11.649 Type 2 diabetes mellitus with hypoglycemia without coma (principal); Z79.4 Long term (current) use of insulin

== ENCOUNTER → 2017-11-08 | Outpatient (CLI) | payer BC ==
[~2017-11-08] MED LIST changes: +GLGKIT SQ; +NAPR-1169 PO; +NVLGI/PEN SQ
[2017-11-08 10:14] LABS: HEMOGLOBIN A1C 7.8 % (4.5-5.6)
[2017-11-08 10:54] LABS: ALBUMIN 3.6 gm/dl (3.4-5.0); BLOOD UREA NITROGEN 21 mg/dl (7-18); CALCIUM 9.4 mg/dl (8.5-10.1); CARBON DIOXIDE 28 mmol/L (21-32); GLUCOSE 58 mg/dl (70-99); POTASSIUM 4.2 mmol/L (3.5-5.1); SODIUM 139 mmol/L (136-145)
[2017-11-08 11:04] LABS: PHOSPHORUS 3.3 mg/dl (2.5-4.9)
== END | disposition home or self-care (01) ==
LOC: C.LAB1850 08:08
PROVIDERS: ATTEND Physician Assistant
DX: E11.21 Type 2 diabetes mellitus with diabetic nephropathy (principal); E03.9 Hypothyroidism, unspecified; E10.9 Type 1 diabetes mellitus without complications

== ENCOUNTER → 2018-03-19 | Outpatient (CLI) | payer BC ==
[~2018-03-19] MED LIST changes: +BECL80AE7 INH; +INSPMPHMLG; +LVT/20 PO; -NAPR-1169 PO; +NAPR-22 PO
[2018-03-19 13:01] LABS: ALBUMIN 3.7 gm/dl (3.4-5.0); ALKALINE PHOSPHATASE 110 U/L (45-117); ALT/SGPT 36 U/L (12-78); AST/SGOT 37 U/L (15-37); BLOOD UREA NITROGEN 25 mg/dl (7-18); CALCIUM 8.9 mg/dl (8.5-10.1); CARBON DIOXIDE 29 mmol/L (21-32); CREATININE 1.25 mg/dl (0.60-1.40); GLUCOSE 113 mg/dl (70-99); POTASSIUM 4.5 mmol/L (3.5-5.1); SODIUM 137 mmol/L (136-145); TRANSFERRIN 202 mg/dl (200-360)
[2018-03-19 14:09] LABS: BASO % 0.6 %; BASO ABS # 0.03 K/uL (0-0.2); EOS % 4.5 %; EOS ABS # 0.24 K/uL (0-0.5); HEMATOCRIT 38.7 % (42-52); HEMOGLOBIN 13.1 g/dL (14.0-18.0); IG# 0.01 K/uL (0.00-0.02); LYMPH % 15.8 %; LYMPH ABS # 0.84 K/uL (1.2-3.4); MEAN CELL VOLUME 96.3 fL (80-100); MEAN CORPUSCULAR HEMOGLOBIN 32.6 pg (25-34); MEAN CORPUSCULAR HGB CONC 33.9 g/dl (32-36); MEAN PLATELET VOLUME 9.5 fL (7.4-10.4); MONO % 5.4 %; MONO ABS # 0.29 K/uL (0.11-0.59); NEUT % 73.5 %; NEUT ABS # 3.92 K/uL (1.4-6.5); PLATELET COUNT 203 K/uL (130-400); RED CELL DISTRIBUTION WIDTH CV 14.2 % (11.5-14.5); RED CELL DISTRIBUTION WIDTH SD 49.5 fL (36.4-46.3); WHITE BLOOD COUNT 5.33 K/uL (4.8-10.8)
== END | disposition home or self-care (01) ==
LOC: C.LAB1850 10:39
PROVIDERS: ATTEND Physician Assistant
DX: R42 Dizziness and giddiness (principal)

== ENCOUNTER 2018-03-24 10:10 | Inpatient (IN) | payer BC ==
[~2018-03-24] VITALS: Ht 170.2 cm; Wt 56.9 kg
[2018-03-24] VITALS (7 sets, daily range): BP systolic 110–147; BP diastolic 46–62; PULSE 36–37; TEMP 37.1; O2SAT 96–100; BMI 19.6
[~2018-03-24 10:10] MED LIST changes: -BECL80AE7 INH; -INSPMPHMLG; -LVT/20 PO
--- NOTE | 2018-03-24 10:33 | EMERGENCY ROOM VISIT NOTE ---
History Report prepared by Cathleen: Genevieve Siu Under the Supervision of: Dr. Dina Rehman D.O. First contact with patient: 10:17 Chief Complaint: HEAD INJURY (MINOR) Stated Complaint: DIZZY, PASSED OUT, VOMITING, HEAD INJURY History of Present Illness The patient is a 62 year old male who presents to the Emergency Room with complaints of an episode of syncope that occurred this morning. He also complains of intermittent vomiting and dizziness that started a week ago. The patient reports exertion worsens his symptoms. He notes the vomiting has been worse in the last couple of days. He states he injured his head and upper/lower extremities from the fall. The patient denies nausea, shortness of breath, chest pain, palpitations, neck pain, or back pain. He denies any previous heart history. He reports he has a history of diabetes but his sugars have been normal. The patient reports he stopped taking Diovan a couple of weeks ago but denies any other recent change in medications. Source of History: patient Onset: one week Quality: other (dizzy) Timing: intermittent Modifying Factors (Worsening): exertion Associated Symptoms: No neck pain, No chest pain, No SOB, No nausea, No back pain Review of Systems See HPI for pertinent positives & negatives. A total of 10 systems reviewed and were otherwise negative. Past Medical & Surgical Medical Problems: (1) Hypertension (2) Hypothyroidism (3) IDDM (insulin dependent diabetes mellitus) (4) Rheumatoid arthritis Social History Smoking Status: Never Smoker Alcohol Use: none Drug Use: none Marital Status: Occupation Status: employed Current/Historical Medications Scheduled Beclomethasone Dip (Qvar), 2 PUFF INH BID Folic Acid (Folic Acid), 1 MG PO DAILY Glucagon (Glucagon Emergency Kit), 1 DOSE SQ DIRECTED Insulin Human Lispro (Insulin Humalog Pump ), 1 EA N/A UD Levothyroxine Sodium (Levothyroxine Sodium), 125 MCG PO 2XWK Levothyroxine Sodium (Levothyroxine Sodium), 150 MCG PO 5XWK Methotrexate (Methotrexate), 12.5 MG PO WK Naproxen (Naprosyn), 500 MG PO BID Scheduled PRN Vardenafil (Levitra), 20 MG PO DIRECTED PRN for PRN Allergies Coded Allergies: No Known Allergies (Unverified , 03/24/18) Physical Exam Vital Signs Date Time Temp Pulse Resp B/P (MAP) Pulse Ox O2 Delivery O2 Flow Rate FiO2 03/24/18 12:52 33 15 141/47 100 Room Air 03/24/18 12:42 34 14 129/49 100 Room Air 03/24/18 12:32 33 14 130/48 100 Room Air 03/24/18 12:22 31 14 132/56 100 Room Air 03/24/18 12:12 31 14 125/51 100 Room Air 03/24/18 12:02 31 6 132/57 100 Room Air 03/24/18 11:52 31 12 131/57 100 Room Air 03/24/18 11:43 32 12 137/73 100 Room Air 03/24/18 11:22 31 11 136/57 100 Room Air 03/24/18 11:12 31 147/51 100 Room Air 03/24/18 11:00 32 13 175/ 100 Room Air 03/24/18 10:52 33 13 149/58 100 Room Air 03/24/18 10:31 33 03/24/18 10:31 36.6 33 16 162/55 100 Room Air Physical Exam GENERAL: alert, well appearing, well nourished, no distress, non-toxic HEAD: normal cephalic, atraumatic. No bony tenderness, no mid-face instability. EYE EXAM: normal conjunctiva, PERRL and EOM's grossly intact OROPHARYNX: no exudate, no erythema, lips, buccal mucosa, and tongue normal and mucous membranes are moist. No dental or oropharyngeal trauma noted. EARS: TMs clear b/l NECK: supple, no nuchal rigidity, no adenopathy, non-tender CHEST: stable to compression anteriorly and posteriorly LUNGS: clear to auscultation. Normal chest wall mechanics HEART: no murmurs, S1 normal and S2 normal. Irregular and bradycardic. ABDOMEN: abdomen soft, non-tender, normo-active bowel sounds, no masses, no rebound or guarding. PELVIS: stable to compression anteriorly and posteriorly BACK: Back is symmetrical on inspection and there is no deformity, no midline tenderness, no CVA tenderness. UPPER EXTREMITIES: full active and passive range of motion of all joints without tenderness to palpation, normal pulses, no deformities, no bony tenderness. LOWER EXTREMITIES: full active and passive range of motion of all joints without tenderness to palpation, normal pulses, no deformities, no bony tenderness. SKIN: Superficial abrasion to left parietal region, superficial abrasion to right cheek, superficial abrasion to the left lower lip, 3cm laceration to the submental region, superficial abrasion on left elbow, several small contusions to right forearm, superficial abrasion to left knee. NEURO EXAM: Normal sensorium, cranial nerves II-XII grossly intact, normal speech, no gross weakness of arms, no gross weakness of legs. GCS: 15. Medical Decision & Procedures ER Provider Diagnostic Interpretation: Radiology results have been interpreted by the radiologist and reviewed by me. SINGLE VIEW CHEST CLINICAL HISTORY: Syncope. FINDINGS: An AP, portable, upright chest radiograph is compared to study dated 08/09/2017. The examination is mildly degraded by portable technique and patient rotation. The cardiomediastinal silhouette is unremarkable. There is calcification of the mitral annulus. The lungs and pleural spaces are clear. No pneumothorax is seen. The bony thorax is grossly intact. IMPRESSION: No active disease in the chest. Electronically signed by: Sidney Loera M.D. 03/24/2018 11:00 AM Dictated Date/Time: 03/24/2018 10:[address] SCAN OF THE BRAIN WITHOUT IV CONTRAST CLINICAL HISTORY: Trauma. COMPARISON STUDY: CT of the brain dated 08/09/2017. TECHNIQUE: Unenhanced axial CT scan of the brain is performed from the vertex to the skull base. A dose lowering technique was utilized adhering to the principles of ALARA. CT DOSE: 887.70 mGy.cm FINDINGS: Brain parenchyma: There are age-related involutional changes noting mild subcortical and periventricular microangiopathic change. There is no hemorrhage, mass effect, or evidence of acute territorial ischemia by CT criteria. Morales-white matter is preserved. No extra-axial fluid collection is seen. Ventricles, sulci, cisterns: Prominent secondary to involutional change. Intracranial vasculature: There is atherosclerotic calcification of the cavernous carotid and vertebral arteries. Calvarium: The skeletal structures are osteopenic. No depressed calvarial fracture is identified. A comminuted fracture of the right mandibular neck is partially visualized. Sinuses and mastoids: There is near complete opacification of the left frontal sinus and the ethmoid sinuses. Moderate mucosal thickening is seen in the left sphenoid sinus. Mild mucosal thickening is seen in the right frontal sinus. The mastoid air cells are well pneumatized. Orbits: The bony orbits are grossly intact. There are bilateral ocular lens implants. IMPRESSION: 1. There is no hemorrhage, mass effect, or evidence of acute territorial ischemia by CT criteria. 2. There is no depressed calvarial fracture. 3. There is a comminuted fracture of the right mandibular neck. 4. Paranasal sinus disease as above. Electronically signed by: Sidney Loera M.D. 03/24/2018 11:16 AM Dictated Date/Time: 03/24/2018 11:[address] SCAN OF THE CERVICAL SPINE CLINICAL HISTORY: Trauma. COMPARISON STUDY: No priors. TECHNIQUE: CT scan of the cervical spine is performed from the skull base to the upper thoracic spine. Images are reviewed in the axial, sagittal, and coronal planes. IV contrast was not administered for this examination. A dose lowering technique was utilized adhering to the principles of ALARA. FINDINGS: Skeletal structures: The skeletal structures are osteopenic. There is no evidence of fracture or subluxation involving the cervical spine. Vertebral body height and alignment are maintained. There is straightening of the cervical lordosis. Anterior osteophytes are seen throughout. The odontoid process and lateral masses are intact. The atlantoaxial articulation is preserved noting productive degenerative change. The spinous processes appear intact.There is moderate multilevel cervical spondylosis. Uncovertebral and facet arthropathy contribute to neural foraminal narrowing at several levels. There is a comminuted fracture of the left mandibular neck. This is only partially visualized. Intervertebral discs: There is advanced disc space narrowing at C5-C6. Only mild disc space narrowing is seen in the remaining cervical levels. Central canal: A posterior disc osteophyte complex at C5-C6 may contribute to mild acquired compromise of the central canal. Soft tissues: The prevertebral and paraspinous soft tissues are within normal limits. Atherosclerotic calcification is noted in the carotid bulbs. The thyroid gland appears atrophic. Calvarium: The visualized calvarium at the skull base appears intact. Brain parenchyma: Partially visualized brain parenchyma the skull base is within normal limits. Sinuses and mastoids: Mucosal thickening is noted in the left sphenoid sinus. The mastoid air cells are well pneumatized. Lung apices: Clear as visualized. IMPRESSION: 1. There is no evidence of fracture or subluxation involving the cervical spine. 2. Osteopenia and spondylotic change as above. 3. There is a comminuted fracture of the right mandibular neck. Electronically signed by: Sidney Loera M.D. 03/24/2018 11:27 AM Dictated Date/Time: 03/24/2018 11:[address] SCAN OF THE FACIAL BONES WITHOUT IV CONTRAST CLINICAL HISTORY: Mandibular fracture. Trauma. COMPARISON STUDY: CT of the brain performed earlier the same day 03/24/2018. TECHNIQUE: High-resolution CT scan of the facial bones is performed. Images are reviewed in the axial, sagittal, and coronal planes. IV contrast was not administered for this examination. A dose lowering technique was utilized adhering to the principles of ALARA. CT DOSE: 603.57 mGy.cm FINDINGS: The skeletal structures are osteopenic. There is a comminuted fracture of the right mandibular neck and condyle with small distracted fragments. The remainder of the mandible appears intact. No additional facial bone fracture is seen. The temporomandibular joints are preserved noting degenerative change. The bony orbits are intact and the orbital contents are within normal limits noting bilateral ocular lens implants. The zygomatic arches, nasal bones, and pterygoid plates are preserved. The maxilla is intact. There are no layering blood products within the paranasal sinuses. There is subtotal opacification of the left frontal sinus and the ethmoid sinuses. Moderate mucosal thickening is seen in the right frontal and left sphenoid sinuses. Trace mucosal thickening is noted in the maxillary antra. The mastoid air cells are clear. The visualized calvarium appears intact. The upper cervical spine is maintained noting spondylotic change. Partially imaged brain parenchyma is within normal limits noting age-related involutional change. There is mild right facial soft tissue swelling. IMPRESSION: 1. There is a comminuted fracture of the right mandibular neck and condyle with small distracted fragments. 2. The remainder of the mandible appears intact. There is no temporomandibular joint dislocation. 3. No additional facial bone fracture is seen. 4. Paranasal sinus disease as above. Electronically signed by: Sidney Loera M.D. 03/24/2018 12:07 PM Dictated Date/Time: 03/24/2018 12:01 PM Laboratory Results Test 03/24/18 10:34 03/24/18 10:35 Prothrombin Time 11.9 SECONDS (9.0-12.0) Prothromb Time International Ratio 1.1 (0.9-1.1) Magnesium Level 2.2 mg/dl (1.8-2.4) Total Bilirubin 0.7 mg/dl (0.2-1) Aspartate Amino Transf (AST/SGOT) 36 U/L (15-37) Alanine Aminotransferase (ALT/SGPT) 38 U/L (12-78) Alkaline Phosphatase 108 U/L (45-117) Troponin I 0.017 ng/ml (0-0.045) Pro-B-Type Natriuretic Peptide 4756 pg/ml (0-900) Total Protein 7.1 gm/dl (6.4-8.2) Albumin 3.7 gm/dl (3.4-5.0) Globulin 3.4 gm/dl (2.5-4.0) Albumin/Globulin Ratio 1.1 (0.9-2) Thyroid Stimulating Hormone (TSH) 1.280 uIu/ml (0.300-4.500) Lyme Disease IgG Antibody NEG (NEG) Lyme Disease IgM Antibody NEG (NEG) Date/Time Source Procedure Growth Status 03/24/18 00:00 Nasal MRSA DNA Surveillance Screen - Final Specimen Negative for MRSA by DNA Probe Complete Laboratory results per my review. Medications Administered Medications (Trade) Dose Ordered Sig/Will Route Start Time Stop Time Status Last Admin Dose Admin Sodium Chloride 1,000 ml @ 250 mls/hr Q4H STAT IV 03/24/18 10:34 03/24/18 14:33 DC 03/24/18 10:41 250 MLS/HR Procedure Location: submental Total length: 3cm Complexity: simple, linear Verbal consent was obtained after the risks and benefits were explained, including but not limited to bleeding, scarring, infection, pain, and bone/joint /nerve damage. At this time, the risks of the procedure are less than the risks of NOT performing the procedure. A time out was taken and the correct patient and site identified. The target area was anesthetized with 5 ml of 1% lidocaine without epinephrine. Copious irrigation was performed using sterile saline. The skin was re-prepped with betadine and a sterile field set. The wound was explored for foreign bodies and none found. Examination revealed no injury to deep structures such as tendons, bone, or significant blood vessels. Debridement was not performed. The wound edges were approximated using 6-0 nylon with 6 simple interrupted nylon sutures. Hemostasis and excellent approximation was achieved. Antibacterial ointment and a sterile dressing applied. Detailed wound care instructions and signs and symptoms of infection reviewed with the patient. No complications and the patient tolerated the procedure well. ECG Per My Interpretation Indication: syncope Rate (beats per minute): 33 Rhythm: other (3rd degree heart block) Findings: no acute ischemic change, other (normal QRS and QTC) ED Course 1020: The patient was evaluated in room C2B. A complete history and physical exam was performed. 1034: Ordered Sodium Chloride 1000 ml @ 250 mls/hr IV. 1040: I discussed the patient's case with Dr. Bauer, [facility]. He states there is nothing to add to the patient's orders. He will evaluate the patient. 1050: I rechecked the patient and updated him on the treatment plan. 1100: Review of recent office visit records show no rate controlling agents on patient medication list and no anticoagulation. 1105: The patient is being seen at the bedside by Dr. Bauer at this time. 1130: I updated the patient on his test results and informed him that he will need to go for a facial CT. 1230: I updated the patient on his CT results and his treatment plan. 1240: I spoke with Dr. Roberts, [facility] Hospitalist. He agrees to evaluate the patient for further management. 1255: Ordered Lidocaine/Epinephrine 20 ml .ROUTE. 1320: Dr. Rolon is evaluating the patient at bedside. Medical Decision Differential diagnosis: Etiologies such as fracture, dislocation, intra-abdominal, pneumothorax, intrathoracic , intracranial, neurologic, as well as other traumatic pathologies were entertained. Patient here found to have third-degree heart block which likely contributed to his syncope and subsequent head injury and facial laceration. Also found to have right mandible fracture, although did not have pain, no trismus, no difficulty swallowing or breathing, no obvious overlying contusion. Submental facial laceration was repaired. Following EKG immediate consult was placed to Dr. Hope, cardiology who came and evaluated the patient in the emergency room. Patient is otherwise hemodynamically stable and is holding a blood pressure despite a heart rate of the low 30s. Patient aware of his results and need for close monitoring and likely placement of pacemaker. No need for emergent temporary pacemaker at this time. No evidence of Lyme's carditis, or acute electrolyte abnormality. Acute renal failure noted, unlikely related to medications, no symptoms to suggest infection. Patient be placed in intensive care unit as a precaution close monitoring in case an emergent temporary pacemaker would need to be placed. Other labs reassuring. I do not suspect any other occult traumatic injury from the syncopal event today. No other complaints of pain or trauma including back pain, extremity pain, chest or abdominal pain, and pelvis stable. Patient with full range of motion in all extremities. Medication Reconcilliation Current Medication List: was personally reviewed by me Blood Pressure Screening Patient's blood pressure: Elevated blood pressure (monitor by hospitalist) Consults Time Called: 1035 Consulting Physician: Dr[facility] Bauer [facility] Returned Call: 1040 I discussed the patient's case with Dr[facility] Bauer [facility]. He states there is nothing to add to the patient's orders. He will evaluate the patient. Additional Consults: Time Called: 1235 Consulted Physician: Dr. Roberts [facility] Hospitalist Returned Call: 1240 Additional Comments: I spoke with Dr. Roberts [facility] Hospitalist. He agrees to evaluate the patient for further management. Impression Primary Impression: Syncope Additional Impressions: Third degree heart block Closed head injury Acute renal failure Mandibular fracture Facial abrasion Facial laceration Hypertension Critical Care I have personally spent greater than 45 minutes of critical care time in the direct management of this patient. This includes bedside care, interpretation of diagnostic studies, and testing, discussion with consultants, patient, and family members, and other required patient management activities. This 45 minutes is in excess of all separately billable procedures. Scribe Attestation The scribe's documentation has been prepared under my direction and personally reviewed by me in its entirety. I confirm that the note above accurately reflects all work, treatment, procedures, and medical decision making performed by me. Departure Information Dispostion Being Evaluated By Hospitalist Referrals Alfred Gage M.D. (PCP) Patient Instructions My [facility] Problem Qualifiers Primary Impression: Syncope Syncope type: unspecified Qualified Codes: R55 - Syncope and collapse Additional Impressions: Closed head injury Encounter type: initial encounter Qualified Codes: S09.90XA - Unspecified injury of head, initial encounter Acute renal failure Acute renal failure type: unspecified Qualified Codes: N17.9 - Acute kidney failure, unspecified Mandibular fracture Encounter type: initial encounter Fracture type: closed Mandible location: unspecified site of mandible Laterality: right Qualified Codes: S02.609A - Fracture of mandible, unspecified, initial encounter for closed fracture Facial abrasion Encounter type: initial encounter Qualified Codes: S00.81XA - Abrasion of other part of head, initial encounter Facial laceration Encounter type: initial encounter Qualified Codes: S01.81XA - Laceration without foreign body of other part of head, initial encounter Hypertension Hypertension type: essential hypertension Qualified Codes: I10 - Essential ( primary) hypertension
[2018-03-24] MEDS ORDERED: SODIUM CHLORIDE 0.9% 1000ML 1,000 ML IV STA (10:34)
[2018-03-24 10:45] LABS: BASO % 0.2 %; BASO ABS # 0.02 K/uL (0-0.2); EOS ABS # 0.09 K/uL (0-0.5); HEMATOCRIT 38.6 % (42-52); HEMOGLOBIN 13.1 g/dL (14.0-18.0); IG# 0.02 K/uL (0.00-0.02); LYMPH % 16.9 %; LYMPH ABS # 1.59 K/uL (1.2-3.4); MEAN CELL VOLUME 95.8 fL (80-100); MEAN CORPUSCULAR HEMOGLOBIN 32.5 pg (25-34); MEAN CORPUSCULAR HGB CONC 33.9 g/dl (32-36); MONO % 8.5 %; NEUT % 73.2 %; NEUT ABS # 6.87 K/uL (1.4-6.5); PLATELET COUNT 176 K/uL (130-400); RED CELL DISTRIBUTION WIDTH CV 14.3 % (11.5-14.5); RED CELL DISTRIBUTION WIDTH SD 49.4 fL (36.4-46.3); WHITE BLOOD COUNT 9.39 K/uL (4.8-10.8)
[2018-03-24 10:54] LABS: INR 1.1 (0.9-1.1)
--- NOTE | 2018-03-24 11:01 | DIAGNOSTIC IMAGING REPORT ---
SINGLE VIEW CHEST CLINICAL HISTORY: Syncope. FINDINGS: An AP, portable, upright chest radiograph is compared to study dated 08/09/2017. The examination is mildly degraded by portable technique and patient rotation. The cardiomediastinal silhouette is unremarkable. There is calcification of the mitral annulus. The lungs and pleural spaces are clear. No pneumothorax is seen. The bony thorax is grossly intact. IMPRESSION: No active disease in the chest. Electronically signed by: Sidney Loera M.D. 03/24/2018 11:00 AM Dictated Date/Time: 03/24/2018 10:59 AM
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
[2018-03-24] MEDS ORDERED: LVT/20 PO (11:15)
[2018-03-24] MEDS ORDERED: BECL80AE7 INH (11:15)
[2018-03-24] MEDS ORDERED: INSPMPHMLG (11:15)
[2018-03-24 11:16] LABS: ALBUMIN 3.7 gm/dl (3.4-5.0); CALCIUM 9.1 mg/dl (8.5-10.1); CREATININE 2.5 mg/dl (0.60-1.40); POTASSIUM 4.7 mmol/L (3.5-5.1); TOTAL PROTEIN 7.1 gm/dl (6.4-8.2)
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
--- NOTE | 2018-03-24 11:28 | DIAGNOSTIC IMAGING REPORT ---
CT SCAN OF THE CERVICAL SPINE CLINICAL HISTORY: Trauma. COMPARISON STUDY: No priors. TECHNIQUE: CT scan of the cervical spine is performed from the skull base to the upper thoracic spine. Images are reviewed in the axial, sagittal, and coronal planes. IV contrast was not administered for this examination. A dose lowering technique was utilized adhering to the principles of ALARA. FINDINGS: Skeletal structures: The skeletal structures are osteopenic. There is no evidence of fracture or subluxation involving the cervical spine. Vertebral body height and alignment are maintained. There is straightening of the cervical lordosis. Anterior osteophytes are seen throughout. The odontoid process and lateral masses are intact. The atlantoaxial articulation is preserved noting productive degenerative change. The spinous processes appear intact.There is moderate multilevel cervical spondylosis. Uncovertebral and facet arthropathy contribute to neural foraminal narrowing at several levels. There is a comminuted fracture of the left mandibular neck. This is only partially visualized. Intervertebral discs: There is advanced disc space narrowing at C5-C6. Only mild disc space narrowing is seen in the remaining cervical levels. Central canal: A posterior disc osteophyte complex at C5-C6 may contribute to mild acquired compromise of the central canal. Soft tissues: The prevertebral and paraspinous soft tissues are within normal limits. Atherosclerotic calcification is noted in the carotid bulbs. The thyroid gland appears atrophic. Calvarium: The visualized calvarium at the skull base appears intact. Brain parenchyma: Partially visualized brain parenchyma the skull base is within normal limits. Sinuses and mastoids: Mucosal thickening is noted in the left sphenoid sinus. The mastoid air cells are well pneumatized. Lung apices: Clear as visualized. IMPRESSION: 1. There is no evidence of fracture or subluxation involving the cervical spine. 2. Osteopenia and spondylotic change as above. 3. There is a comminuted fracture of the right mandibular neck. Electronically signed by: Sidney Loera M.D. 03/24/2018 11:27 AM Dictated Date/Time: 03/24/2018 11:20 AM
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
[2018-03-24] MEDS ORDERED: LIDO/EPINEPHRINE/SOD BICARB 20 ML VIAL ONE (12:55)
--- NOTE | 2018-03-24 13:46 | Critical Care Consultation ---
Critical Care Consultation Date of Consultation: Mar 24, 2018. Attending Physician: Keshia Johnson Reason for Consultation: 3rd degree heart block History of Present Illness Patient is a 62 year old male who presented to [facility] ED with complain of a syncopal event with associated head injury (facial laceration). He was found in be in heart block with a ventricular rate of 32. His symptoms have persisted for approximately one week. He currently denies chest pain, shortness of breath during my examination. Past Medical/Surgical History IDDM Rheumatoid arthitis Social History Smoking Status: Never Smoker Drug Use: none Marital Status: Occupation Status: employed Allergies Coded Allergies: No Known Allergies (Unverified , 03/24/18) Home Medications Scheduled Beclomethasone Dip (Qvar), 2 PUFF INH BID Folic Acid (Folic Acid), 1 MG PO DAILY Glucagon (Glucagon Emergency Kit), 1 DOSE SQ DIRECTED Insulin Human Lispro (Insulin Humalog Pump ), 1 EA N/A UD Levothyroxine Sodium (Levothyroxine Sodium), 125 MCG PO 2XWK Levothyroxine Sodium (Levothyroxine Sodium), 150 MCG PO 5XWK Methotrexate (Methotrexate), 12.5 MG PO WK Naproxen (Naprosyn), 500 MG PO BID Scheduled PRN Vardenafil (Levitra), 20 MG PO DIRECTED PRN for PRN Current Inpatient Medications Current Inpatient Medications Medications (Trade) Dose Ordered Sig/Will Route Start Time Stop Time Status Last Admin Dose Admin Sodium Chloride 1,000 ml @ 250 mls/hr Q4H STAT IV 03/24/18 10:34 03/24/18 14:33 03/24/18 10:41 250 MLS/HR Review of Systems additional as per the HPI, See above for pertinent positives & negatives. A total of 10 systems reviewed and were otherwise negative. Constitutional: No fever, No chills, No sweats, No weight loss, No weakness, No fatigue, No problem reported Respiratory: No shortness of breath Endocrine: No fatigue, No excessive thirst, No excessive urination, No problem reported Physical Exam Date Time Temp Pulse Resp B/P (MAP) Pulse Ox O2 Delivery O2 Flow Rate FiO2 03/24/18 12:12 31 14 125/51 100 Room Air 03/24/18 12:02 31 6 132/57 100 Room Air 03/24/18 11:52 31 12 131/57 100 Room Air 03/24/18 11:43 32 12 137/73 100 Room Air 03/24/18 11:22 31 11 136/57 100 Room Air 03/24/18 11:12 31 147/51 100 Room Air 03/24/18 11:00 32 13 175/ 100 Room Air 03/24/18 10:52 33 13 149/58 100 Room Air 03/24/18 10:31 33 03/24/18 10:31 36.6 33 16 162/55 100 Room Air General Appearance: well-appearing Head: normocephalic, other (chin laceration repaired in the ED) Eyes: PERRLA Cardiovasular: irregular rate (bradyacrdia), abnormal rhythm (regularly irregular) Abdomen: non tender, normal bowel sounds Pulses: radial (R) (2+), radial (L) (2+) Neuro: alert, oriented x 3 Laboratory Results Last 24 Hours Test 03/24/18 10:28 03/24/18 10:30 03/24/18 10:35 Bedside Glucose 226 mg/dl 256 mg/dl White Blood Count 9.39 K/uL Red Blood Count 4.03 M/uL Hemoglobin 13.1 g/dL Hematocrit 38.6 % Mean Corpuscular Volume 95.8 fL Mean Corpuscular Hemoglobin 32.5 pg Mean Corpuscular Hemoglobin Concent 33.9 g/dl Platelet Count 176 K/uL Mean Platelet Volume 11.0 fL Neutrophils (%) (Auto) 73.2 % Lymphocytes (%) (Auto) 16.9 % Monocytes (%) (Auto) 8.5 % Eosinophils (%) (Auto) 1.0 % Basophils (%) (Auto) 0.2 % Neutrophils # (Auto) 6.87 K/uL Lymphocytes # (Auto) 1.59 K/uL Monocytes # (Auto) 0.80 K/uL Eosinophils # (Auto) 0.09 K/uL Basophils # (Auto) 0.02 K/uL RDW Standard Deviation 49.4 fL RDW Coefficient of Variation 14.3 % Immature Granulocyte % (Auto) 0.2 % Immature Granulocyte # (Auto) 0.02 K/uL Prothrombin Time 11.9 SECONDS Prothromb Time International Ratio 1.1 Sodium Level 133 mmol/L Potassium Level 4.7 mmol/L Chloride Level 99 mmol/L Carbon Dioxide Level 24 mmol/L Anion Gap 10.0 mmol/L Blood Urea Nitrogen 40 mg/dl Creatinine 2.50 mg/dl Est Creatinine Clear Calc Drug Dose 24.0 ml/min Estimated GFR () 30.3 Estimated GFR (Non- 26.2 BUN/Creatinine Ratio 15.9 Random Glucose 266 mg/dl Calcium Level 9.1 mg/dl Magnesium Level 2.2 mg/dl Total Bilirubin 0.7 mg/dl Aspartate Amino Transf (AST/SGOT) 36 U/L Alanine Aminotransferase (ALT/SGPT) 38 U/L Alkaline Phosphatase 108 U/L Troponin I 0.017 ng/ml Pro-B-Type Natriuretic Peptide 4756 pg/ml Total Protein 7.1 gm/dl Albumin 3.7 gm/dl Globulin 3.4 gm/dl Albumin/Globulin Ratio 1.1 Thyroid Stimulating Hormone (TSH) 1.280 uIu/ml Lyme Disease IgG Antibody NEG Lyme Disease IgM Antibody NEG Assessment & Plan Reason Critically Ill: 62 year old male with complete heart block PLAN: Neuro: Syncope - associated traumatic injuries - OMFS consult Resp: Supplemental O2 prn CV: Syncope Complete heart block - reviewed cardiology consultation - keep pacer pads on patient - consented for CVL and transvenous pacer maker should patient decompesate - dopamine prn Fluids/Renal: NALINI - baseline Cr approximately 1.2 - cautious fluid administration with elevated BNP ID:Blood cultures x2 GI/Nutrition: Dental soft diet given mandibular fracture Heme: Anemia - appears at baseline from sep, 2017 Endocrine: Poorly controlled DM - perioperative educator consult given insulin pump - pharmacy glycemic control consult Rheumatoid Arthritis - continue methotrexate & folic acid Hypotheyroidism - continue replacement Code Status IV access: patient consented for blood product administration, central venous access, and transvenous pacing should they be required I have personally spent 70 minutes of critical care time in the direct management of this patient. This is a life/limb threatening event. This includes time spent evaluating patient, direct bedside care, chart review, placing orders, interpretation of diagnostic studies, discussion with consultants, patient, and/or family members regarding treatment decisions, as well as other required patient management activities. This time is exclusive of all separately billable procedures, and teaching time and separate from and in addition to any other critical care service time.
[2018-03-24] MEDS ORDERED: PHARMACY GLYCEMIC MGMT CONSULT PRN (14:14)
[2018-03-24] MEDS ORDERED: DEXTROSE 50% 50 ML SYR IV PRN (14:45)
[2018-03-24] MEDS ORDERED: INSULIN HUMAN LISPRO (humaLOG) 100 UNITS/ML VIAL SC PRN (14:45)
[2018-03-24] MEDS ORDERED: GLUCAGON FOR INJ 1 MG VIAL IM PRN (14:45)
[2018-03-24] MEDS ORDERED: ICU PROTOCOL FOR HYPERGLYCEMIA PRN ×2 (14:45)
[2018-03-24] MEDS ORDERED: CARBOHYDRATES FOR HYPOGLYCEMIA PO PRN (14:45)
[2018-03-24] MEDS ORDERED: GLUCOSE 10 TABS/TUBE PO PRN (14:45)
[2018-03-24] MEDS ORDERED: GLUCOSE 40% GEL 15 GM TUBE PO PRN (14:45)
--- NOTE | 2018-03-24 15:01 | History and Physical ---
History & Physical Date & Time of Service: Mar 24, 2018 at 14:56 Chief Complaint: Third Degree Heart Block Primary Care Physician: Alfred Gage M.D. History of Present Illness Source: patient, family 62-year-old male presents to the emergency department following a syncopal episode earlier this morning. He is noted some dizziness that began over the past week, worse with exertion. He is also noted some nausea and vomiting with his dizziness as well. As result of this morning's fall, he notes some pain with a laceration on his chin, two chipped teeth in the right side, as well as some extremity abrasions. He specifically denies any chest pain, shortness of breath, palpitations, neck or back pain, difficulty moving his extremities, or any other acute concerns. He denies any history of recurrent syncope prior to this. Past Medical/Surgical History Medical Problems: (1) Hypertension (2) Hypothyroidism (3) IDDM (insulin dependent diabetes mellitus) (4) Rheumatoid arthritis Family History No h/o heart block Social History Smoking Status: Never Smoker Drug Use: none Marital Status: Occupational Status: employed Immunizations History of Influenza Vaccine: Yes History of Tetanus Vaccine?: Yes History of Pneumococcal: No History of Hepatitis B Vaccine: No Allergies Coded Allergies: No Known Allergies (Unverified , 03/24/18) Home Medications Scheduled Beclomethasone Dip (Qvar), 2 PUFF INH BID Folic Acid (Folic Acid), 1 MG PO DAILY Glucagon (Glucagon Emergency Kit), 1 DOSE SQ DIRECTED Insulin Human Lispro (Insulin Humalog Pump ), 1 EA N/A UD Levothyroxine Sodium (Levothyroxine Sodium), 125 MCG PO 2XWK Levothyroxine Sodium (Levothyroxine Sodium), 150 MCG PO 5XWK Methotrexate (Methotrexate), 12.5 MG PO WK Naproxen (Naprosyn), 500 MG PO BID Scheduled PRN Vardenafil (Levitra), 20 MG PO DIRECTED PRN for PRN Review of Systems Constitutional: No fever, No chills Respiratory: No cough, No shortness of breath Abdomen: + nausea (presently resolved), + vomiting (presently resolved), No pain Musculoskeletal: + problem reported (chipped tooth, chin pain s/p laceration) Neurologic: + problem reported (dizziness) Integumentary: + rash (subacute on wrist as outpatient) Physical Exam Vital Signs Date Time Temp Pulse Resp B/P (MAP) Pulse Ox O2 Delivery O2 Flow Rate FiO2 03/24/18 14:12 36 12 141/50 100 03/24/18 14:02 35 15 146/61 99 03/24/18 13:52 36 15 144/48 99 03/24/18 13:52 100 Room Air 03/24/18 13:42 34 17 141/56 99 03/24/18 13:32 34 9 125/56 99 03/24/18 13:27 35 14 100 03/24/18 13:22 35 14 142/55 100 Room Air 03/24/18 13:12 33 16 142/45 100 Room Air 03/24/18 12:52 33 15 141/47 100 Room Air 03/24/18 12:42 34 14 129/49 100 Room Air 03/24/18 12:32 33 14 130/48 100 Room Air 03/24/18 12:22 31 14 132/56 100 Room Air 03/24/18 12:12 31 14 125/51 100 Room Air 03/24/18 12:02 31 6 132/57 100 Room Air 03/24/18 11:52 31 12 131/57 100 Room Air 03/24/18 11:43 32 12 137/73 100 Room Air 03/24/18 11:22 31 11 136/57 100 Room Air 03/24/18 11:12 31 147/51 100 Room Air 03/24/18 11:00 32 13 175/ 100 Room Air 03/24/18 10:52 33 13 149/58 100 Room Air 03/24/18 10:31 33 03/24/18 10:31 36.6 33 16 162/55 100 Room Air General Appearance: Awake, alert & oriented, comfortable in general, NAD. Chin / oropharynx: There is a now repaired linear laceration (six sutures) on his chin. Small abrasion to his left lower lip. Two chipped teeth on the right side, one upper and one lower. Otherwise patent oropharynx. CV: +S1S2 audibly regular in the 30's. No appreciable murmur. Pulm: Clear to auscultation throughout. Abdomen: +BS, soft, non-tender, non-distended. Patient has an insulin pump. Extremities / skin: No pedal edema or calf tenderness. Moving all extremities naturally and easily. Multiple areas of prior abrasions. There are couple of new areas of abrasion over the left wrist and right facial cheek. There is a maculopapular rash over the left wrist. Neuro: No gross neuro deficits. Diagnostics Laboratory Results Results Past 24 Hours Test 03/24/18 10:28 03/24/18 10:30 03/24/18 10:34 03/24/18 10:35 Range/Units Bedside Glucose 226 256 70-99 mg/dl White Blood Count 9.39 4.8-10.8 K/uL Red Blood Count 4.03 4.7-6.1 M/uL Hemoglobin 13.1 14.0-18.0 g/dL Hematocrit 38.6 42-52 % Mean Corpuscular Volume 95.8 80-100 fL Mean Corpuscular Hemoglobin 32.5 25-34 pg Mean Corpuscular Hemoglobin Concent 33.9 32-36 g/dl Platelet Count 176 130-400 K/uL Mean Platelet Volume 11.0 7.4-10.4 fL Neutrophils (%) (Auto) 73.2 % Lymphocytes (%) (Auto) 16.9 % Monocytes (%) (Auto) 8.5 % Eosinophils (%) (Auto) 1.0 % Basophils (%) (Auto) 0.2 % Neutrophils # (Auto) 6.87 1.4-6.5 K/uL Lymphocytes # (Auto) 1.59 1.2-3.4 K/uL Monocytes # (Auto) 0.80 0.11-0.59 K/uL Eosinophils # (Auto) 0.09 0-0.5 K/uL Basophils # (Auto) 0.02 0-0.2 K/uL RDW Standard Deviation 49.4 36.4-46.3 fL RDW Coefficient of Variation 14.3 11.5-14.5 % Immature Granulocyte % (Auto) 0.2 % Immature Granulocyte # (Auto) 0.02 0.00-0.02 K/uL Prothrombin Time 11.9 9.0-12.0 SECONDS Prothromb Time International Ratio 1.1 0.9-1.1 Sodium Level 133 136-145 mmol/L Potassium Level 4.7 3.5-5.1 mmol/L Chloride Level 99 98-107 mmol/L Carbon Dioxide Level 24 21-32 mmol/L Anion Gap 10.0 3-11 mmol/L Blood Urea Nitrogen 40 7-18 mg/dl Creatinine 2.50 0.60-1.40 mg/dl Est Creatinine Clear Calc Drug Dose 24.0 ml/min Estimated GFR () 30.3 Estimated GFR (Non- 26.2 BUN/Creatinine Ratio 15.9 10-20 Random Glucose 266 70-99 mg/dl Calcium Level 9.1 8.5-10.1 mg/dl Magnesium Level 2.2 1.8-2.4 mg/dl Total Bilirubin 0.7 0.2-1 mg/dl Aspartate Amino Transf (AST/SGOT) 36 15-37 U/L Alanine Aminotransferase (ALT/SGPT) 38 12-78 U/L Alkaline Phosphatase 108 45-117 U/L Troponin I 0.017 0-0.045 ng/ml Pro-B-Type Natriuretic Peptide 4756 0-900 pg/ml Total Protein 7.1 6.4-8.2 gm/dl Albumin 3.7 3.4-5.0 gm/dl Globulin 3.4 2.5-4.0 gm/dl Albumin/Globulin Ratio 1.1 0.9-2 Thyroid Stimulating Hormone (TSH) 1.280 0.300-4.500 uIu/ml Lyme Disease IgG Antibody NEG NEG Lyme Disease IgM Antibody NEG NEG Microbiology Results 03/24/18 Blood Culture, Ordered Pending 03/24/18 Blood Culture, Ordered Pending 03/24/18 MRSA DNA Surveillance Screen, Received Pending Diagnostic Radiology Single-view chest x-ray IMPRESSION: No active disease in the chest. CT head without IV contrast IMPRESSION: 1. There is no hemorrhage, mass effect, or evidence of acute territorial ischemia by CT criteria. 2. There is no depressed calvarial fracture. 3. There is a comminuted fracture of the right mandibular neck. 4. Paranasal sinus disease as above. CT c-spine without IV contrast IMPRESSION: 1. There is no evidence of fracture or subluxation involving the cervical spine. 2. Osteopenia and spondylotic change as above. 3. There is a comminuted fracture of the right mandibular neck. CT facial bones without IV contrast IMPRESSION: 1. There is a comminuted fracture of the right mandibular neck and condyle with small distracted fragments. 2. The remainder of the mandible appears intact. There is no temporomandibular joint dislocation. 3. No additional facial bone fracture is seen. 4. Paranasal sinus disease as above. EKG Sinus atrial rhythm, rate around 100. Ventricular rate around 30. Complete heart block. Impression Assessment and Plan 62-year-old male was admitted on 24 March 2018 for syncope. He was found to be in third-degree heart block. PMH: Insulin-dependent diabetes, rheumatoid arthritis, hypertension, hypothyroidism, asthma, DKA. Syncope: Likely the result of his complete heart block. He denies chest pain, shortness of breath, or symptoms while at rest. - Related issues as discussed below. Complete heart block: As seen on EKG. Cardiology consulted in ED, see related notes. No role for emergent pacing. The cause of the heart block is unclear. Lyme testing is negative. TSH normal. - Overall plan is for permanent pacemaker placement, likely on Monday. - Admitted to the ICU for monitoring with transcutaneous pads in place. There were also discussions with the patient regarding potential need for transvenous pacing versus chronotropic support in this interim period. Elevated BNP: On admit was 4756. No known history of congestive heart failure. Presently no shortness of breath or extremity peripheral edema. - Echocardiogram pending. Mandible fracture: As seen on CT of the neck and face. - Placed consult to OMFS. - We will keep on a dental soft diet for now. NALINI: Admit creatinine of 2.5 (prior comparisons around 1.2). Elevated BUN as well, suggesting prerenal source. - Provided IV fluids in ED. Will recheck. Acutely planning judicious IVF use given elevated BNP. Insulin-dependent diabetes: Admit glucose of 266. Patient has a insulin pump which he says he believes is working properly. - Pharmacy glycemic control consult placed. certified lactation educator consult placed as well. - For now, we will continue to use his home insulin pump and compare those values to hospital lab values. Hypothyroidism: Continue home Synthroid Rheumatoid arthritis: Continue home methotrexate weekly. Left hand rash: Patient says is a relatively acute finding. He will bring in his home new skin prescription for further evaluation. Code status: Full code Diet: AHA, diabetes type 2, dental soft cut. DVT prophy: SCD's. PT/OT: Deferred on admission. Disbo: Admit to ICU for close heart rate monitoring prior to pacemaker placement. Advanced Directives Existing Living Will: No Existing Power of French Polisher: No Resuscitation Status VTE Prophylaxis Will order VTE Prophylaxis: Yes Resident Tracking Resident Involvement: Resident Care Provided Care Provided: Adult Hospital Medicine (Inpatient admit) Reviewed: Pt Seen/Exam by Me History 62 y/o M here with syncopal event, noted to be in CHB Constitutional: denies: fever Respiratory: negative: short of breath Cardiovascular: denies chest pain Gastrointestinal/Abdominal: negative: abdominal pain General Appearance: no apparent distress, other (chin with laceration - stitches +) Respiratory: lungs clear, no respiratory distress Cardiovascular: regular rate, rhythm Gastrointestinal: soft Neurologic/Psychiatric: alert, oriented x 3 Skin Characteristics: warm/dry Assessment/Plan Resident Physician Supervision Note: I independently interviewed and examined the patient and verified the davis history and physical, reviewed labs and image studies, discussed the case with the resident Dr. Carlson and agree with the findings and care plan.
--- NOTE | 2018-03-24 15:20 | Pharmacy Progress Note ---
Glycemic Control Intl Consult Date of Service Mar 24, 2018. Scope Glycemic Pharmacist consulted by Dr Rolon on 03/24/18 for glycemic control and to write orders per [facility] inpatient glycemic control protocol Objective Weight (Kilograms): 56.900 Accuchecks BSG (last 24hrs): Test 03/24/18 10:28 03/24/18 10:30 03/24/18 10:35 Bedside Glucose 226 mg/dl (70-99) 256 mg/dl (70-99) Random Glucose 266 mg/dl (70-99) Laboratory Data (last 24hrs) Test 03/24/18 10:34 03/24/18 10:35 Anion Gap 10.0 mmol/L BUN/Creatinine Ratio 15.9 Blood Urea Nitrogen 40 mg/dl Creatinine 2.50 mg/dl Potassium Level 4.7 mmol/L Sodium Level 133 mmol/L White Blood Count 9.39 K/uL Red Blood Count 4.03 M/uL Hemoglobin 13.1 g/dL Hematocrit 38.6 % Mean Corpuscular Volume 95.8 fL Mean Corpuscular Hemoglobin 32.5 pg Mean Corpuscular Hemoglobin Concent 33.9 g/dl Platelet Count 176 K/uL Mean Platelet Volume 11.0 fL Neutrophils (%) (Auto) 73.2 % Lymphocytes (%) (Auto) 16.9 % Monocytes (%) (Auto) 8.5 % Eosinophils (%) (Auto) 1.0 % Basophils (%) (Auto) 0.2 % Neutrophils # (Auto) 6.87 K/uL Lymphocytes # (Auto) 1.59 K/uL Monocytes # (Auto) 0.80 K/uL Eosinophils # (Auto) 0.09 K/uL Basophils # (Auto) 0.02 K/uL HbA1c Test 03/24/18 10:34 Recent Pertinent Medications Outpatient Anti-diabetic Regimen: * [employer] 670G Hybrid Closed Loop Pump * Humalog insulin * Total daily dose ~ 20-22 units/day * Pt unsure of basal rates and CF --> will confirm these when he has his glasses * CR = 1 unit for every 20g CHO consumed Assessment & Plan ASSESSMENT: * Pt is to manage BSGs with insulin pump per outpatient settings. * [facility] went over agreement CF 006 Insulin Pump Therapy Patient Agreement. Pt signed agreement and is in understanding. * [facility] provided and explained form NS-824 Flowsheet for Patient * Patient will document their insulin dose given on NS-824 which is kept at the bedside, available to caregivers upon request, and which becomes part of the permanent medical record. * Patient is also going to use his own CGM that works with his pump. * RN will document on NS-824 that CGM is clean and in working condition * RN will do a daily quality check of CGM - test BSG once daily and ensure that CGM results are within 80% of [facility] Glucometer * CGM site changed yesterday --> changes weekly on Fridays * Insulin pump site changed --> next site change will be tomorrow. Family will bring in pump supplies for site change. If at any time the patients condition evidences that he/she is not able to manage the insulin pump (i.e. frequent hypo/hyperglycemia) Pharmacy will assume glycemic control by discontinuing the pump & managing with SQ basal bolus insulin regimen for the interim. PLAN FOR INPATIENT GLYCEMIC CONTROL: * Pt to continue Humalog insulin pump per outpatient settings * Check/evaluate A1c * Please note that the plan above was derived based on current level of insulin resistance and hospital stress. These recommendations are appropriate for inpatient admission only. Plan of care upon discharge will need to be reassessed to avoid potential outpatient hypo/hyperglycemia. Thank you.
[2018-03-24] MEDS ORDERED: PNEUMOCOCCAL POLYSACCHARIDES 25 MCG/0.5 ML VIAL/SYR IM. ONE (16:00)
[2018-03-24] MEDS ORDERED: PNEUMOCOCCAL ADMINISTRATION CHARGE ONE (16:00)
[2018-03-24] MEDS: NORMOSOL R 1,000 ML IV SCH (16:09)
[2018-03-24] MEDS: NAPROXEN 250 MG TAB PO SCH (21:45)
[2018-03-24] MEDS: BECLOMETHASONE DIP HFA 80 MCG 8.7G INH INH SCH (21:45)
--- NOTE | 2018-03-24 21:55 | DIAGNOSTIC IMAGING REPORT ---
ULTRASOUND KIDNEYS AND BLADDER CLINICAL HISTORY: Acute renal insufficiency. COMPARISON STUDY: Right upper quadrant ultrasound dated 04/30/2012. TECHNIQUE: Real-time, grayscale, and color flow sonography of the kidneys and bladder is performed. Images are reviewed in the transverse and longitudinal planes. FINDINGS: Kidneys: The kidneys are normal in size and echotexture. The right kidney measures 10.1 x 4.2 x 5.0 cm and the left kidney measures 9.9 x 4.7 x 3.9 cm. There is 4 cine right renal collecting system without micaela hydronephrosis. No shadowing renal calculi are identified. There is no sonographic evidence of contour deforming renal mass lesion. There is trace nonspecific right-sided perinephric fluid. Bladder: The bladder is normal in appearance. Bilateral ureteral jets were seen. The prostate gland is mildly enlarged. IMPRESSION: 1. The kidneys are normal in size. 2. There is fullness of the right renal collecting system without micaela hydronephrosis identified in either kidney. 3. There is trace nonspecific right-sided perinephric fluid. 4. The bladder was normal as visualized. Electronically signed by: Sidney Loera M.D. 03/24/2018 9:54 PM Dictated Date/Time: 03/24/2018 9:52 PM
[2018-03-25] VITALS (22 sets, daily range): BP systolic 97–155; BP diastolic 40–78; PULSE 31–38; TEMP 36.6–37; O2SAT 94–99
[2018-03-25] MEDS: NORMOSOL R 1,000 ML IV SCH ×2 (06:00→18:54)
[2018-03-25] MEDS ORDERED: LEVOTHYROXINE 125 MCG TAB PO SCH (06:00)
[2018-03-25 06:26] LABS: BASO % 0.4 %; BASO ABS # 0.03 K/uL (0-0.2); EOS % 1.8 %; EOS ABS # 0.15 K/uL (0-0.5); HEMATOCRIT 40.6 % (42-52); HEMOGLOBIN 13.6 g/dL (14.0-18.0); IG# 0.01 K/uL (0.00-0.02); LYMPH ABS # 1.74 K/uL (1.2-3.4); MEAN CELL VOLUME 97.1 fL (80-100); MEAN CORPUSCULAR HEMOGLOBIN 32.5 pg (25-34); MEAN CORPUSCULAR HGB CONC 33.5 g/dl (32-36); MEAN PLATELET VOLUME 10.7 fL (7.4-10.4); MONO % 5.1 %; MONO ABS # 0.42 K/uL (0.11-0.59); NEUT % 71.6 %; NEUT ABS # 5.93 K/uL (1.4-6.5); PLATELET COUNT 149 K/uL (130-400); RED CELL DISTRIBUTION WIDTH CV 14.5 % (11.5-14.5); RED CELL DISTRIBUTION WIDTH SD 50.5 fL (36.4-46.3); WHITE BLOOD COUNT 8.28 K/uL (4.8-10.8)
[2018-03-25 07:00] LABS: CALCIUM 8.6 mg/dl (8.5-10.1); CREATININE 1.78 mg/dl (0.60-1.40); POTASSIUM 4.8 mmol/L (3.5-5.1)
[2018-03-25] MEDS: NAPROXEN 250 MG TAB PO SCH ×2 (08:08→22:58)
[2018-03-25] MEDS: BECLOMETHASONE DIP HFA 80 MCG 8.7G INH INH SCH ×2 (08:08→22:58)
--- NOTE | 2018-03-25 09:08 | Family Medicine Progress Note ---
Progress Note Date of Service Mar 25, 2018. Subjective Pt evaluation today including: conversation w/ patient Found patient resting comfortably in bed this this morning. He denied any complaints whatsoever, including any chest pain, shortness of breath, dizziness , or headache. He had no particular acute concerns. Nursing had mentioned he was a little nauseous but this improved with nel cassie. Constitutional: No fever, No chills Respiratory: No cough, No shortness of breath Cardiovascular: No chest pain, No edema Abdomen: + nausea (resolved), No pain, No vomiting, No diarrhea Medications Current Inpatient Medications Medications (Trade) Dose Ordered Sig/Will Route Start Time Stop Time Status Last Admin Dose Admin Parenteral Electrolyte Solution 1,000 ml @ 80 mls/hr [id number] IV 03/24/18 15:00 04/23/18 14:59 03/25/18 06:00 80 MLS/HR Miscellaneous Information (Consult Glycemic Management Pharmacy) 1 ea UD PRN N/A 03/24/18 14:14 04/23/18 14:13 Insulin Human Lispro (HumaLOG INSULIN PUMP) 1 ea ACHS N/A 03/24/18 16:00 04/23/18 15:59 03/25/18 07:01 1 EA Insulin Human Lispro (humaLOG) SLIDING SCALE PRN PRN SC 03/24/18 14:45 04/23/18 14:44 Glucose (Glucose 40% Gel) 15-30 GRAMS 15 GRAMS... UD PRN PO 03/24/18 14:45 04/23/18 14:44 Glucose (Glucose Chew Tab) 4-8 Tablets 4 Tabl... UD PRN PO 03/24/18 14:45 04/23/18 14:44 Glucagon (Glucagon Inj) 1 mg UD PRN IM 03/24/18 14:45 04/23/18 14:44 Dextrose (Dextrose 50% 50ML Syringe) 25-50ML 25ML FOR ... UD PRN IV 03/24/18 14:45 04/23/18 14:44 Carbohydrates (Carbohydrates For Hypoglycemia) 15-30 GRAMS 15 grams if BSG 54-69... UD PRN PO 03/24/18 14:45 04/23/18 14:44 Beclomethasone Dipropionate (Qvar 80 Mcg Hfa Inhaler) 2 puffs BID INH 03/24/18 21:00 04/23/18 20:59 03/25/18 08:08 2 PUFFS Folic Acid (Folvite Tab) 1 mg DAILY PO 03/25/18 09:00 04/24/18 08:59 03/25/18 08:08 1 MG Levothyroxine Sodium (Synthroid Tab) 125 mcg SuSa@0600 PO 03/25/18 06:00 04/24/18 05:59 03/25/18 06:01 125 MCG Levothyroxine Sodium (Synthroid Tab) 150 mcg MoTuWeThFr@0600 PO 03/26/18 06:00 04/25/18 05:59 Methotrexate (Methotrexate Tab) 12.5 mg Sa@0900 PO 03/31/18 09:00 04/30/18 08:59 Naproxen (Naprosyn Tab) 500 mg BID PO 03/24/18 21:00 04/23/18 20:59 03/25/18 08:08 500 MG Miscellaneous Information ([facility] Protocol For Hyperglycemia) 1 ea PRN PRN N/A 03/24/18 14:45 03/26/18 14:44 Objective Vital Signs Date Time Temp Pulse Resp B/P (MAP) Pulse Ox O2 Delivery O2 Flow Rate FiO2 03/25/18 08:00 Room Air 03/25/18 08:00 36.8 35 10 125/48 (73) 98 Room Air 03/25/18 07:00 31 12 107/48 (67) 97 Room Air 03/25/18 06:03 31 12 117/40 (65) 94 03/25/18 05:02 36 4 134/44 (74) 97 03/25/18 04:01 36.9 37 6 139/60 (86) 97 03/25/18 03:01 36 12 121/49 (73) 95 03/25/18 02:01 38 12 113/52 (72) 99 03/25/18 01:02 38 20 114/44 (67) 97 03/25/18 00:01 37.0 37 17 127/53 (77) 96 03/24/18 23:02 36 13 110/46 (67) 98 03/24/18 22:01 36 16 123/57 (79) 97 03/24/18 21:02 37 19 117/53 (74) 96 03/24/18 20:02 37.1 37 16 147/62 (90) 98 818 20:00 Room Air 03/24/18 19:02 37 18 128/57 (80) 100 818 14:40 98 Room Air 03/24/18 14:12 36 12 141/50 100 8 14:02 35 15 146/61 99 8/18 13:52 36 15 144/48 99 818 13:52 100 Room Air 03/24/18 13:42 34 17 141/56 99 8/18 13:32 34 9 125/56 99 /18 13:27 35 14 100 818 13:22 35 14 142/55 100 Room Air 03/24/18 13:12 33 16 142/45 100 Room Air 03/24/18 12:52 33 15 141/47 100 Room Air 03/24/18 12:42 34 14 129/49 100 Room Air 18 12:32 33 14 130/48 100 Room Air 18 12:22 31 14 132/56 100 Room Air 03/24/18 12:12 31 14 125/51 100 Room Air 03/24/18 12:02 31 6 132/57 100 Room Air 03/24/18 11:52 31 12 131/57 100 Room Air 03/24/18 11:43 32 12 137/73 100 Room Air 03/24/18 11:22 31 11 136/57 100 Room Air 18 11:12 31 147/51 100 Room Air 03/24/18 11:00 32 13 175/ 100 Room Air 03/24/18 10:52 33 13 149/58 100 Room Air 18 10:31 33 18 10:31 36.6 33 16 162/55 100 Room Air Physical Exam Notes: General Appearance: Awake, alert & oriented, comfortable in general, NAD. Chin / oropharynx: There is a now repaired linear laceration (six sutures) on his chin. Small abrasion to his left lower lip. Two chipped teeth on the right side, one upper and one lower. Otherwise patent oropharynx. CV: +S1S2 audibly regular in the 30's. No appreciable murmur. Pulm: Clear to auscultation throughout. Abdomen: +BS, soft, non-tender, non-distended. Patient has an insulin pump. Extremities / skin: No pedal edema or calf tenderness. Moving all extremities naturally and easily. Multiple areas of prior abrasions. There are couple of new areas of abrasion over the left wrist and right facial cheek. There is a maculopapular rash over the left wrist. Neuro: No gross neuro deficits. Laboratory Results 03/25/18 06:14 Red Blood Count 4.18, Mean Corpuscular Volume 97.1, Mean Corpuscular Hemoglobin 32.5, Mean Corpuscular Hemoglobin Concent 33.5, Mean Platelet Volume 10.7, Neutrophils (%) (Auto) 71.6, Lymphocytes (%) (Auto) 21.0, Monocytes (%) (Auto) 5.1, Eosinophils (%) (Auto) 1.8, Basophils (%) (Auto) 0.4, Neutrophils # (Auto) 5.93, Lymphocytes # (Auto) 1.74, Monocytes # (Auto) 0.42, Eosinophils # (Auto) 0.15, Basophils # (Auto) 0.03 03/25/18 06:14 Test 03/24/18 10:34 03/24/18 10:35 03/25/18 06:05 03/25/18 06:14 Prothrombin Time 11.9 SECONDS (9.0-12.0) Prothromb Time International Ratio 1.1 (0.9-1.1) Magnesium Level 2.2 mg/dl (1.8-2.4) Total Bilirubin 0.7 mg/dl (0.2-1) Aspartate Amino Transf (AST/SGOT) 36 U/L (15-37) Alanine Aminotransferase (ALT/SGPT) 38 U/L (12-78) Alkaline Phosphatase 108 U/L (45-117) Troponin I 0.017 ng/ml (0-0.045) Pro-B-Type Natriuretic Peptide 4756 pg/ml (0-900) Total Protein 7.1 gm/dl (6.4-8.2) Albumin 3.7 gm/dl (3.4-5.0) Globulin 3.4 gm/dl (2.5-4.0) Albumin/Globulin Ratio 1.1 (0.9-2) Thyroid Stimulating Hormone (TSH) 1.280 uIu/ml (0.300-4.500) Lyme Disease IgG Antibody NEG (NEG) Lyme Disease IgM Antibody NEG (NEG) Bedside Glucose 135 mg/dl (70-99) White Blood Count 8.28 K/uL (4.8-10.8) Red Blood Count 4.18 M/uL (4.7-6.1) Hemoglobin 13.6 g/dL (14.0-18.0) Hematocrit 40.6 % (42-52) Mean Corpuscular Volume 97.1 fL (80-100) Mean Corpuscular Hemoglobin 32.5 pg (25-34) Mean Corpuscular Hemoglobin Concent 33.5 g/dl (32-36) Platelet Count 149 K/uL (130-400) Mean Platelet Volume 10.7 fL (7.4-10.4) Neutrophils (%) (Auto) 71.6 % Lymphocytes (%) (Auto) 21.0 % Monocytes (%) (Auto) 5.1 % Eosinophils (%) (Auto) 1.8 % Basophils (%) (Auto) 0.4 % Neutrophils # (Auto) 5.93 K/uL (1.4-6.5) Lymphocytes # (Auto) 1.74 K/uL (1.2-3.4) Monocytes # (Auto) 0.42 K/uL (0.11-0.59) Eosinophils # (Auto) 0.15 K/uL (0-0.5) Basophils # (Auto) 0.03 K/uL (0-0.2) RDW Standard Deviation 50.5 fL (36.4-46.3) RDW Coefficient of Variation 14.5 % (11.5-14.5) Immature Granulocyte % (Auto) 0.1 % Immature Granulocyte # (Auto) 0.01 K/uL (0.00-0.02) Anion Gap 8.0 mmol/L (3-11) Est Creatinine Clear Calc Drug Dose 33.7 ml/min Estimated GFR () 45.7 Estimated GFR (Non- 39.4 BUN/Creatinine Ratio 19.0 (10-20) Calcium Level 8.6 mg/dl (8.5-10.1) Assessment and Plan 62-year-old male was admitted on 24 March 2018 for syncope. He was found to be in third-degree heart block. PMH: Insulin-dependent diabetes, rheumatoid arthritis, hypertension, hypothyroidism, asthma, DKA. Syncope: Likely the result of his complete heart block. He continues to deny chest pain, shortness of breath, or symptoms while at rest. - Related issues as discussed below. Complete heart block: As seen on EKG. Unknown duration. Cardiology consulted in ED, see related notes. No role for emergent pacing. The cause of the heart block is unclear. Lyme testing is negative. TSH normal. - Overall plan is for permanent pacemaker placement tomorrow (Mar). - Admitted to the ICU for monitoring with transcutaneous pads in place. There were also discussions with the patient regarding potential need for transvenous pacing versus chronotropic support in this interim period. Elevated BNP: On admit was 4756. No known history of congestive heart failure. Presently no shortness of breath or extremity peripheral edema. - Echocardiogram pending. Mandible fracture: As seen on CT of the neck and face. S/p chin suture placement on 24 March. - Placed consult to OMFS for further evaluation. - We will keep on a dental soft diet for now. NALINI: Admit Cr 2.5 (prior comparisons around 1.2). Elevated BUN as well, suggesting prerenal source. Improved to 1.78 following IVF. - Acutely planning judicious IVF use given elevated BNP. Insulin-dependent diabetes: Admit glucose of 266. Patient has a insulin pump which he says he believes is working properly. Early comparisons of his pump versus hospital glucose values have been matching. - Appreciate pharmacy and life educator input. Hypothyroidism: Continue home Synthroid. Rheumatoid arthritis: Continue home methotrexate weekly. Left hand rash: Patient says is a relatively acute finding. He will bring in his home new skin prescription for further evaluation. Code status: Full code Diet: AHA, diabetes type 2, dental soft cut. DVT prophy: SCD's. PT/OT: Deferred on admission. Disbo: Admit to ICU for close heart rate monitoring prior to pacemaker placement. Resident Tracking Resident Involvement: Resident Care Provided Care Provided: Adult Hospital Medicine (inpatient) Reviewed: Pt Seen/Exam by Me History No new issues. Constitutional: denies: fever Respiratory: negative: short of breath Cardiovascular: denies chest pain General Appearance: no apparent distress Respiratory: lungs clear, no respiratory distress Cardiovascular: regular rate, rhythm Neurologic/Psychiatric: alert, oriented x 3 Skin Characteristics: warm/dry Assessment/Plan Resident Physician Supervision Note: I independently interviewed and examined the patient and verified the davis history and physical, reviewed labs and image studies, discussed the case with the resident Dr. Carlson and agree with the findings and care plan.
--- NOTE | 2018-03-25 10:11 | Critical Care Progress Note ---
Critical Care Progress Note Date of Service Mar 25, 2018. ICU Day ICU Day Number: [address] Rolon Subjective No chest pain no shortness of breath, no complaints Objective General: Alert. nontoxic. Skin: Warm, dry, Head: Atraumatic Ears, nose, mouth and throat: airway patent, chin laceration well approximated no erythema nor discharge Cardiovascular: Normal peripheral perfusion: Bradycardia with complete heart block on monitor Respiratory: no respiratory distress Gastrointestinal: Non distended Musculoskeletal: No deformity Assessment & Plan Reason Critically Ill: 62 year old male with complete heart block PLAN: Neuro: Syncope - associated traumatic injuries: Repaired in emergency department - [facility] [place] consult: Pending Resp: Tolerating room air CV: Syncope Complete heart block - reviewed cardiology consultation - keep pacer pads on patient - consented for CVL and transvenous pacer maker should patient decompesate - dopamine prn Fluids/Renal: NALINI - baseline Cr approximately 1.2, improved from 2.5-1.78 - cautious fluid administration with elevated BNP ID:Blood cultures x2 GI/Nutrition: Dental soft diet given mandibular fracture Heme: Anemia - appears at baseline from sep, 2017 Endocrine: Poorly controlled DM - inclusion special educator consult given insulin pump - pharmacy glycemic control consult: Reviewed Rheumatoid Arthritis - continue methotrexate & folic acid Hypotheyroidism - continue replacement Code Status IV access: patient consented for blood product administration, central venous access, and transvenous pacing should they be required I have personally spent 35 minutes of critical care time in the direct management of this patient. This is a life/limb threatening event. This includes time spent evaluating patient, direct bedside care, chart review, placing orders, interpretation of diagnostic studies, discussion with consultants, patient, and/or family members regarding treatment decisions, as well as other required patient management activities. This time is exclusive of all separately billable procedures, and teaching time and separate from and in addition to any other critical care service time. Consults & Procedures Consultants: [facility] [place] Cardiology Procedures: Facial laceration repair March 24, 2018 Data Medications: Current Inpatient Medications Medications (Trade) Dose Ordered Sig/Will Route Start Time Stop Time Status Last Admin Dose Admin Parenteral Electrolyte Solution 1,000 ml @ 80 mls/hr [id number] IV 03/24/18 15:00 04/23/18 14:59 03/25/18 06:00 80 MLS/HR Miscellaneous Information (Consult Glycemic Management Pharmacy) 1 ea UD PRN N/A 03/24/18 14:14 04/23/18 14:13 Insulin Human Lispro (HumaLOG INSULIN PUMP) 1 ea ACHS N/A 03/24/18 16:00 04/23/18 15:59 03/25/18 07:01 1 EA Insulin Human Lispro (humaLOG) SLIDING SCALE PRN PRN SC 03/24/18 14:45 04/23/18 14:44 Glucose (Glucose 40% Gel) 15-30 GRAMS 15 GRAMS... UD PRN PO 03/24/18 14:45 04/23/18 14:44 Glucose (Glucose Chew Tab) 4-8 Tablets 4 Tabl... UD PRN PO 03/24/18 14:45 04/23/18 14:44 Glucagon (Glucagon Inj) 1 mg UD PRN IM 03/24/18 14:45 04/23/18 14:44 Dextrose (Dextrose 50% 50ML Syringe) 25-50ML 25ML FOR ... UD PRN IV 03/24/18 14:45 04/23/18 14:44 Carbohydrates (Carbohydrates For Hypoglycemia) 15-30 GRAMS 15 grams if BSG 54-69... UD PRN PO 03/24/18 14:45 04/23/18 14:44 Beclomethasone Dipropionate (Qvar 80 Mcg Hfa Inhaler) 2 puffs BID INH 03/24/18 21:00 04/23/18 20:59 03/25/18 08:08 2 PUFFS Folic Acid (Folvite Tab) 1 mg DAILY PO 03/25/18 09:00 04/24/18 08:59 03/25/18 08:08 1 MG Levothyroxine Sodium (Synthroid Tab) 125 mcg SuSa@0600 PO 03/25/18 06:00 04/24/18 05:59 03/25/18 06:01 125 MCG Levothyroxine Sodium (Synthroid Tab) 150 mcg MoTuWeThFr@0600 PO 03/26/18 06:00 04/25/18 05:59 Methotrexate (Methotrexate Tab) 12.5 mg Sa@0900 PO 03/31/18 09:00 04/30/18 08:59 Naproxen (Naprosyn Tab) 500 mg BID PO 03/24/18 21:00 04/23/18 20:59 03/25/18 08:08 500 MG Miscellaneous Information (Icu Protocol For Hyperglycemia) 1 ea PRN PRN N/A 03/24/18 14:45 03/26/18 14:44 I & O: 24-Hour Column 03/26/18 08:00 Output Total 400 ml Balance -400 ml Vital Signs: Date Time Temp Pulse Resp B/P (MAP) Pulse Ox O2 Delivery O2 Flow Rate FiO2 03/25/18 09:00 36 12 126/56 (79) 97 Room Air 03/25/18 08:00 Room Air 03/25/18 08:00 36.8 35 10 125/48 (73) 98 Room Air 03/25/18 07:00 31 12 107/48 (67) 97 Room Air 03/25/18 06:03 31 12 117/40 (65) 94 03/25/18 05:02 36 4 134/44 (74) 97 03/25/18 04:01 36.9 37 6 139/60 (86) 97 03/25/18 03:01 36 12 121/49 (73) 95 03/25/18 02:01 38 12 113/52 (72) 99 03/25/18 01:02 38 20 114/44 (67) 97 03/25/18 00:01 37.0 37 17 127/53 (77) 96 03/24/18 23:02 36 13 110/46 (67) 98 03/24/18 22:01 36 16 123/57 (79) 97 03/24/18 21:02 37 19 117/53 (74) 96 03/24/18 20:02 37.1 37 16 147/62 (90) 98 03/24/18 20:00 Room Air 03/24/18 19:02 37 18 128/57 (80) 100 03/24/18 14:40 98 Room Air 03/24/18 14:12 36 12 141/50 100 03/24/18 14:02 35 15 146/61 99 03/24/18 13:52 36 15 144/48 99 03/24/18 13:52 100 Room Air 03/24/18 13:42 34 17 141/56 99 03/24/18 13:32 34 9 125/56 99 03/24/18 13:27 35 14 100 03/24/18 13:22 35 14 142/55 100 Room Air 03/24/18 13:12 33 16 142/45 100 Room Air 03/24/18 12:52 33 15 141/47 100 Room Air 03/24/18 12:42 34 14 129/49 100 Room Air 03/24/18 12:32 33 14 130/48 100 Room Air 03/24/18 12:22 31 14 132/56 100 Room Air 03/24/18 12:12 31 14 125/51 100 Room Air 03/24/18 12:02 31 6 132/57 100 Room Air 03/24/18 11:52 31 12 131/57 100 Room Air 03/24/18 11:43 32 12 137/73 100 Room Air 03/24/18 11:22 31 11 136/57 100 Room Air 03/24/18 11:12 31 147/51 100 Room Air 03/24/18 11:00 32 13 175/ 100 Room Air 03/24/18 10:52 33 13 149/58 100 Room Air 03/24/18 10:31 33 03/24/18 10:31 36.6 33 16 162/55 100 Room Air Laboratory Results: Last 24 Hours Test 03/24/18 10:28 03/24/18 10:30 03/24/18 10:34 03/24/18 10:35 Bedside Glucose 226 mg/dl 256 mg/dl White Blood Count 9.39 K/uL Red Blood Count 4.03 M/uL Hemoglobin 13.1 g/dL Hematocrit 38.6 % Mean Corpuscular Volume 95.8 fL Mean Corpuscular Hemoglobin 32.5 pg Mean Corpuscular Hemoglobin Concent 33.9 g/dl Platelet Count 176 K/uL Mean Platelet Volume 11.0 fL Neutrophils (%) (Auto) 73.2 % Lymphocytes (%) (Auto) 16.9 % Monocytes (%) (Auto) 8.5 % Eosinophils (%) (Auto) 1.0 % Basophils (%) (Auto) 0.2 % Neutrophils # (Auto) 6.87 K/uL Lymphocytes # (Auto) 1.59 K/uL Monocytes # (Auto) 0.80 K/uL Eosinophils # (Auto) 0.09 K/uL Basophils # (Auto) 0.02 K/uL RDW Standard Deviation 49.4 fL RDW Coefficient of Variation 14.3 % Immature Granulocyte % (Auto) 0.2 % Immature Granulocyte # (Auto) 0.02 K/uL Prothrombin Time 11.9 SECONDS Prothromb Time International Ratio 1.1 Sodium Level 133 mmol/L Potassium Level 4.7 mmol/L Chloride Level 99 mmol/L Carbon Dioxide Level 24 mmol/L Anion Gap 10.0 mmol/L Blood Urea Nitrogen 40 mg/dl Creatinine 2.50 mg/dl Est Creatinine Clear Calc Drug Dose 24.0 ml/min Estimated GFR () 30.3 Estimated GFR (Non- 26.2 BUN/Creatinine Ratio 15.9 Random Glucose 266 mg/dl Calcium Level 9.1 mg/dl Magnesium Level 2.2 mg/dl Total Bilirubin 0.7 mg/dl Aspartate Amino Transf (AST/SGOT) 36 U/L Alanine Aminotransferase (ALT/SGPT) 38 U/L Alkaline Phosphatase 108 U/L Troponin I 0.017 ng/ml Pro-B-Type Natriuretic Peptide 4756 pg/ml Total Protein 7.1 gm/dl Albumin 3.7 gm/dl Globulin 3.4 gm/dl Albumin/Globulin Ratio 1.1 Thyroid Stimulating Hormone (TSH) 1.280 uIu/ml Lyme Disease IgG Antibody NEG Lyme Disease IgM Antibody NEG Test 03/24/18 18:07 03/25/18 06:05 03/25/18 06:14 Bedside Glucose 136 mg/dl 135 mg/dl White Blood Count 8.28 K/uL Red Blood Count 4.18 M/uL Hemoglobin 13.6 g/dL Hematocrit 40.6 % Mean Corpuscular Volume 97.1 fL Mean Corpuscular Hemoglobin 32.5 pg Mean Corpuscular Hemoglobin Concent 33.5 g/dl Platelet Count 149 K/uL Mean Platelet Volume 10.7 fL Neutrophils (%) (Auto) 71.6 % Lymphocytes (%) (Auto) 21.0 % Monocytes (%) (Auto) 5.1 % Eosinophils (%) (Auto) 1.8 % Basophils (%) (Auto) 0.4 % Neutrophils # (Auto) 5.93 K/uL Lymphocytes # (Auto) 1.74 K/uL Monocytes # (Auto) 0.42 K/uL Eosinophils # (Auto) 0.15 K/uL Basophils # (Auto) 0.03 K/uL RDW Standard Deviation 50.5 fL RDW Coefficient of Variation 14.5 % Immature Granulocyte % (Auto) 0.1 % Immature Granulocyte # (Auto) 0.01 K/uL Sodium Level 137 mmol/L Potassium Level 4.8 mmol/L Chloride Level 105 mmol/L Carbon Dioxide Level 25 mmol/L Anion Gap 8.0 mmol/L Blood Urea Nitrogen 34 mg/dl Creatinine 1.78 mg/dl Est Creatinine Clear Calc Drug Dose 33.7 ml/min Estimated GFR () 45.7 Estimated GFR (Non- 39.4 BUN/Creatinine Ratio 19.0 Random Glucose 150 mg/dl Calcium Level 8.6 mg/dl
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
--- NOTE | 2018-03-25 15:55 | ECHOCARDIOGRAM REPORT ---
*NOTICE TO RECEIVING LIBERTARIAN AGENCY This information is strictly Confidential and protected under [place] law. [place] law prohibits you from making any further disclosure of this information unless further disclosure is expressly permitted by the written consent of the person to whom it pertains or is authorized by law. A general authorization for the release of medical or other information is not sufficient for this purpose. Hospital accepts no responsibility if the information is made available to any other person, INCLUDING THE PATIENT. Interpretation Summary * Name: SHELLY OSORIO Study Date: 03/24/2018 03:13 PM BP: 141/50 mmHg * Patient Location: .MSICU\S\E106\S\1 HR: 37 * : 1955 (M/d/yyyy) Gender: Male Height: 67 in * Age: 62 yrs Ethnicity: CA Weight: 125 lb * Ordering Physician: Pan Rolon * Referring Physician: Self, Referred * Performed By: Lacie Higgins RDCS * * Reason For Study: PVC'S * BSA: 1.7 m2 * -- Conclusions -- * 1. Normal LV size. Mild concentric LVH. * 2. Hyperdynamic LV. LVEF greater than 70%. No regional wall motion abnormalities. * 3. Normal RV size and function. * 4. Severe mitral annular calcification. Mild mitral stenosis. Trace MR * 5. Mild aortic insufficiency. * 6. Diastolic dysfunction. * 7. No prior studies for comparison. Procedure Details * A complete two-dimensional transthoracic echocardiogram was performed (2D, M-mode, Doppler and color flow Doppler). Left Ventricle * The left ventricle is grossly normal size. * There is mild concentric left ventricular hypertrophy. * Ejection Fraction = >70 %. * No regional wall motion abnormalities noted. Right Ventricle * The right ventricle is grossly normal size. * The right ventricular systolic function is normal as assessed by tricuspid annular plane systolic excursion (TAPSE) (normal >1.5 cm). Atria * The left atrium is mildly dilated. * The right atrium is mildly dilated. * There is no evidence of atrial septal defect, but resolution does not allow assessment for a patent foramen ovale. Mitral Valve * There is severe mitral annular calcification. * There is mild mitral stenosis. * There is trace mitral regurgitation. Tricuspid Valve * There is trace tricuspid regurgitation. Aortic Valve * The aortic valve opens well. * No hemodynamically significant valvular aortic stenosis. * Mild aortic regurgitation. Pulmonic Valve * The pulmonic valve is not well visualized. * Trace pulmonic valvular regurgitation. Great Vessels * The aortic root and proximal ascending aorta are normal sized. * Est RA 8 mmHg (IVC < 2.1, <50% change with respiration). Left Ventricular Diastolic Function * Diastolic dysfunction MMode 2D Measurements and Calculations IVSd 1.2 cm IVSs 1.5 cm LVIDd 3.2 cm LVIDs 1.8 cm LVPWd 1.9 cm LVPWs 1.9 cm IVS/LVPW 0.65 FS 42.6 % EDV(Teich) 40.2 ml ESV(Teich) 10.1 ml EF(Teich) 75.0 % EDV(cubed) 32.0 ml ESV(cubed) 6.1 ml EF(cubed) 81.1 % % IVS thick 21.2 % % LVPW thick -1.14 % LV mass(C)d 181.3 grams LV mass(C)dI 109.5 grams/m\S\2 LV mass(C)s 111.1 grams LV mass(C)sI 67.1 grams/m\S\2 SV(Teich) 30.2 ml SI(Teich) 18.2 ml/m\S\2 SV(cubed) 26.0 ml SI(cubed) 15.7 ml/m\S\2 LA dimension 3.0 cm LVAd ap4 20.3 cm\S\2 LVLd ap4 6.8 cm EDV(MOD-sp4) 50.4 ml EDV(sp4-el) 50.9 ml LVAs ap4 7.8 cm\S\2 LVLs ap4 5.2 cm ESV(MOD-sp4) 10.1 ml ESV(sp4-el) 9.9 ml EF(MOD-sp4) 79.9 % EF(sp4-el) 80.5 % LVAd ap2 20.5 cm\S\2 LVLd ap2 7.3 cm EDV(MOD-sp2) 50.0 ml EDV(sp2-el) 48.4 ml LVAs ap2 7.8 cm\S\2 LVLs ap2 5.5 cm ESV(MOD-sp2) 9.4 ml ESV(sp2-el) 9.4 ml EF(MOD-sp2) 81.1 % EF(sp2-el) 80.6 % LVLd %diff 6.8 % EDV(MOD-bp) 50.0 ml LVLs %diff 5.1 % ESV(MOD-bp) 9.7 ml EF(MOD-bp) 80.6 % SV(MOD-sp4) 40.2 ml SI(MOD-sp4) 24.3 ml/m\S\2 SV(MOD-sp2) 40.5 ml SI(MOD-sp2) 24.5 ml/m\S\2 SV(MOD-bp) 40.3 ml SI(MOD-bp) 24.3 ml/m\S\2 SV(sp4-el) 41.0 ml SI(sp4-el) 24.7 ml/m\S\2 SV(sp2-el) 39.0 ml SI(sp2-el) 23.6 ml/m\S\2 Doppler Measurements and Calculations MV E max beto 223.8 cm/sec MV dec time 0.18 sec Ao V2 max 162.1 cm/sec Ao max PG 10.5 mmHg Ao max PG (full) 0.71 mmHg LV V1 max PG 9.8 mmHg LV V1 max 156.5 cm/sec
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
[2018-03-26] VITALS (27 sets, daily range): BP systolic 89–167; BP diastolic 38–102; PULSE 28–83; TEMP 36–36.6; O2SAT 89–100; Ht 170.2 cm; Wt 56.9 kg
[2018-03-26 04:31] LABS: BASO % 0.2 %; BASO ABS # 0.02 K/uL (0-0.2); EOS % 2.1 %; HEMATOCRIT 37.4 % (42-52); HEMOGLOBIN 12.5 g/dL (14.0-18.0); IG# 0.02 K/uL (0.00-0.02); LYMPH % 16.6 %; LYMPH ABS # 1.58 K/uL (1.2-3.4); MEAN CELL VOLUME 96.6 fL (80-100); MEAN CORPUSCULAR HEMOGLOBIN 32.3 pg (25-34); MEAN CORPUSCULAR HGB CONC 33.4 g/dl (32-36); MEAN PLATELET VOLUME 11.3 fL (7.4-10.4); MONO % 4.8 %; MONO ABS # 0.46 K/uL (0.11-0.59); NEUT % 76.1 %; NEUT ABS # 7.25 K/uL (1.4-6.5); PLATELET COUNT 129 K/uL (130-400); RED CELL DISTRIBUTION WIDTH CV 14.6 % (11.5-14.5); RED CELL DISTRIBUTION WIDTH SD 50.9 fL (36.4-46.3); WHITE BLOOD COUNT 9.53 K/uL (4.8-10.8)
[2018-03-26 04:58] LABS: CALCIUM 8.1 mg/dl (8.5-10.1); CREATININE 1.85 mg/dl (0.60-1.40); POTASSIUM 4.7 mmol/L (3.5-5.1)
[2018-03-26 05:42] LABS: HEMOGLOBIN A1C 6.9 % (4.5-5.6)
[2018-03-26] MEDS ORDERED: CEFAZOLIN SOD 1000MG/7.5 ML IV PUSH IV SCH (06:00)
[2018-03-26] MEDS: LEVOTHYROXINE 150 MCG TAB PO SCH (06:06)
--- NOTE | 2018-03-26 06:52 | Family Medicine Progress Note ---
Progress Note Date of Service Mar 26, 2018. Subjective Pt evaluation today including: conversation w/ patient, physical exam, chart review, review of studies, conversation w/ senior sales consultant Pain: Some mild jaw pain, improving PO Intake: Moderately tolerating diet despite jaw fracture Voiding: no voiding problems Patient is s/p pacemaker placement and is feeling well. He is excited to try and ambulate later today and is glad to have food this morning. Feels his discomfort in chest is greatly improved. Constitutional: No fever, No chills ENT: + dental problems, + trouble swallowing Respiratory: No cough, No shortness of breath Cardiovascular: No chest pain Abdomen: No pain All Other Systems: Reviewed and Negative Medications Current Inpatient Medications Medications (Trade) Dose Ordered Sig/Will Route Start Time Stop Time Status Last Admin Dose Admin Parenteral Electrolyte Solution 1,000 ml @ 80 mls/hr [id number] IV 03/24/18 15:00 04/23/18 14:59 03/25/18 18:54 80 MLS/HR Miscellaneous Information (Consult Glycemic Management Pharmacy) 1 ea UD PRN N/A 03/24/18 14:14 04/23/18 14:13 Insulin Human Lispro (HumaLOG INSULIN PUMP) 1 ea ACHS N/A 03/24/18 16:00 04/23/18 15:59 03/25/18 21:28 1 EA Insulin Human Lispro (humaLOG) SLIDING SCALE PRN PRN SC 03/24/18 14:45 04/23/18 14:44 Glucose (Glucose 40% Gel) 15-30 GRAMS 15 GRAMS... UD PRN PO 03/24/18 14:45 04/23/18 14:44 Glucose (Glucose Chew Tab) 4-8 Tablets 4 Tabl... UD PRN PO 03/24/18 14:45 04/23/18 14:44 Glucagon (Glucagon Inj) 1 mg UD PRN IM 03/24/18 14:45 04/23/18 14:44 Dextrose (Dextrose 50% 50ML Syringe) 25-50ML 25ML FOR ... UD PRN IV 03/24/18 14:45 04/23/18 14:44 Carbohydrates (Carbohydrates For Hypoglycemia) 15-30 GRAMS 15 grams if BSG 54-69... UD PRN PO 03/24/18 14:45 04/23/18 14:44 Beclomethasone Dipropionate (Qvar 80 Mcg Hfa Inhaler) 2 puffs BID INH 03/24/18 21:00 04/23/18 20:59 03/25/18 22:58 2 PUFFS Folic Acid (Folvite Tab) 1 mg DAILY PO 03/25/18 09:00 04/24/18 08:59 03/25/18 08:08 1 MG Levothyroxine Sodium (Synthroid Tab) 125 mcg SuSa@0600 PO 03/25/18 06:00 04/24/18 05:59 03/25/18 06:01 125 MCG Levothyroxine Sodium (Synthroid Tab) 150 mcg MoTuWeThFr@0600 PO 03/26/18 06:00 04/25/18 05:59 03/26/18 06:06 150 MCG Methotrexate (Methotrexate Tab) 12.5 mg Sa@0900 PO 03/31/18 09:00 04/30/18 08:59 Naproxen (Naprosyn Tab) 500 mg BID PO 03/24/18 21:00 04/23/18 20:59 03/25/18 22:58 500 MG Miscellaneous Information (Icu Protocol For Hyperglycemia) 1 ea PRN PRN N/A 03/24/18 14:45 03/26/18 14:44 Lactated Ringer's 1,000 ml @ 15 mls/hr Q24H ONCE IV 03/26/18 08:00 03/27/18 07:59 Objective Vital Signs Date Time Temp Pulse Resp B/P (MAP) Pulse Ox O2 Delivery O2 Flow Rate FiO2 03/26/18 02:03 32 11 121/41 (67) 93 03/26/18 01:01 33 17 117/56 (76) 91 03/26/18 00:02 36.6 34 3 89/38 (55) 93 03/25/18 23:02 37 11 125/45 (71) 99 03/25/18 22:02 34 10 122/51 (74) 95 03/25/18 20:02 36.7 35 4 116/64 (81) 96 03/25/18 20:00 Room Air 03/25/18 18:00 36 12 111/57 (75) 97 Room Air 03/25/18 17:00 35 15 139/62 (87) 99 Room Air 03/25/18 16:00 36.6 34 19 155/41 (79) 98 Room Air 03/25/18 15:00 35 12 97/78 (84) 98 Room Air 03/25/18 14:00 34 14 134/58 (83) 98 Room Air 03/25/18 13:00 35 12 137/55 (82) 98 Room Air 03/25/18 12:00 36.8 34 10 127/56 (79) 97 Room Air 03/25/18 11:00 32 8 122/57 (78) 97 Room Air 03/25/18 10:00 34 12 118/58 (78) 97 Room Air 03/25/18 09:00 36 12 126/56 (79) 97 Room Air 03/25/18 08:00 Room Air 03/25/18 08:00 36.8 35 10 125/48 (73) 98 Room Air 03/25/18 07:00 31 12 107/48 (67) 97 Room Air Physical Exam General Appearance: WD/WN, no apparent distress Eyes: PERRL, EOMI ENT: + pertinent finding (Some healing scabs on face and lips from recent fall) Neck: trachea midline Respiratory/Chest: lungs clear, normal breath sounds, no respiratory distress, no accessory muscle use Cardiovascular: regular rate, rhythm, no edema, no murmur Abdomen: non tender, soft Extremities: normal inspection, no pedal edema, no calf tenderness Neurologic/Psychiatric: alert, normal mood/affect, oriented x 3 Skin: normal color Laboratory Results Last Resulted 03/26/18 04:21 Red Blood Count 3.87, Mean Corpuscular Volume 96.6, Mean Corpuscular Hemoglobin 32.3, Mean Corpuscular Hemoglobin Concent 33.4, Mean Platelet Volume 11.3, Neutrophils (%) (Auto) 76.1, Lymphocytes (%) (Auto) 16.6, Monocytes (%) (Auto) 4.8, Eosinophils (%) (Auto) 2.1, Basophils (%) (Auto) 0.2, Neutrophils # (Auto) 7.25, Lymphocytes # (Auto) 1.58, Monocytes # (Auto) 0.46, Eosinophils # (Auto) 0.20, Basophils # (Auto) 0.02 Last Resulted 03/26/18 04:21 Assessment and Plan 62-year-old male admitted for syncope, found to be in third-degree heart block. PMH: Insulin-dependent diabetes, rheumatoid arthritis, hypertension, hypothyroidism, asthma, DKA. Complete heart block: - Noted on EKG. Unknown duration. Cardiology consulted in ED, see related notes. No role for emergent pacing. The cause of the heart block is unclear. Lyme testing is negative. TSH normal. - Permanent pacemaker placement Mar. - Admitted to the ICU for monitoring Syncope: - Likely the result of his complete heart block. - He continues to deny chest pain, shortness of breath, or symptoms while at rest. - Related issues as discussed Elevated BNP: - On admit was [id number]. No known history of congestive heart failure. Presently no shortness of breath or extremity peripheral edema. - Echocardiogram normal. Mandible fracture: - As seen on CT of the neck and face. S/p chin suture placement on 24 March. - Placed consult to [facility] for further evaluation--will follow as outpatient - We will keep on a dental soft diet for now. NALINI: - Admit Cr 2.5 (prior comparisons around 1.2). Elevated BUN as well, suggesting prerenal source. - Acutely planning judicious IVF use given elevated BNP. IDDM: - Admit glucose of 266. Patient has an insulin pump which he says he believes is working properly. Early comparisons of his pump versus hospital glucose values have been matching. - Appreciate pharmacy and perinatal educator input. Hypothyroidism: Continue home Synthroid. Rheumatoid arthritis: Continue home methotrexate weekly. Left hand rash: Patient says is a relatively acute finding. He will bring in his home new skin prescription for further evaluation. Code: Full DVPT: SCD's. PT/OT: Deferred on admission. Dispo: Admit to ICU, likely discharge home soon Resident Physician Supervision Note: I interviewed and examined the patient. Discussed with Dr. Whitehead and agree with findings and plan as documented in the note. Any exceptions or clarifications are listed here: None Documented By: Ed Hawkins feeling good post pacer no significant complaints vitals noted nad breathing unlabored no pallor or icterus complete heart block - now post pacer otherwise as above Resident Tracking Resident Involvement: Resident Care Provided Care Provided: Adult [facility]
[2018-03-26] MEDS ORDERED: BACITRACIN 50000 UNIT VIAL ONE (07:41)
[2018-03-26] MEDS ORDERED: BACITRACIN OINT 0.9 GM PKT ONE (07:41)
[2018-03-26] MEDS ORDERED: LIDOCAINE HCL 1% 20 ML VIAL ONE (07:41)
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
--- NOTE | 2018-03-26 07:48 | Pre Sedation Assessment ---
Pre Sedation Assessment General Date of Sedation: Mar 26, 2018. Vital Signs Past 12 Hours Date Time Temp Pulse Resp B/P (MAP) Pulse Ox O2 Delivery O2 Flow Rate FiO2 03/26/18 07:23 31 13 146/45 (78) 98 03/26/18 06:02 34 4 132/52 (78) 94 03/26/18 05:03 31 11 123/46 (71) 93 03/26/18 04:02 36.6 31 0 110/62 (78) 93 03/26/18 03:01 28 15 111/52 (71) 89 03/26/18 02:03 32 11 121/41 (67) 93 03/26/18 01:01 33 17 117/56 (76) 91 03/26/18 00:02 36.6 34 3 89/38 (55) 93 03/25/18 23:02 37 11 125/45 (71) 99 03/25/18 22:02 34 10 122/51 (74) 95 03/25/18 20:02 36.7 35 4 116/64 (81) 96 03/25/18 20:00 Room Air Review Cardiovascular: regular rate, rhythm, no edema, + bradycardia, + systolic murmur Lungs: lungs clear Pre-Sedation Airway Assessment Smoking Status: Never Smoker Hx of Sleep Apnea: No Hx of difficult intubation: No Short Thick Neck: No Thyro-mental Distance: > 3 Finger Breadths Oral Cavity: WNL Mallampati Classification: Class III ASA Classification: Class II NPO Status Date of Last Intake of Fluids: Mar 25, 2018 Date of Last Intake of Solids: Mar 25, 2018 Procedure Planning Contraindications for Sedation: None Current Medications Reviewed: Yes Notes The planned sedation has been discussed with the patient. Informed Consent was obtained. I have identified the patient, determined the appropriateness of sedation and have assessed the patient immediately prior to the procedure. All medicine(s) and interventions are by my order.
[2018-03-26] MEDS ORDERED: LACTATED RINGER'S 1000ML 1,000 ML IV ONE (08:00)
[2018-03-26] MEDS ORDERED: WATER, STERILE FOR INJ 10 ML VIAL ONE (08:06)
[2018-03-26] MEDS ORDERED: CEFAZOLIN SOD 1 GM VIAL ONE (08:06)
[2018-03-26] MEDS ORDERED: FENTANYL CITRATE INJ 50 MCG/1 ML 2 ML VIAL ONE (08:06)
[2018-03-26] MEDS ORDERED: MIDAZOLAM HCL 5 MG/ML 1 ML VIAL ONE (08:06)
--- NOTE | 2018-03-26 09:57 | [facility] Operative Report ---
Operative Report Operative Date Mar 26, 2018. Pre-Operative Diagnosis Complete heart block Post-Operative Diagnosis Same Procedure(s) Performed Dual-chamber pacemaker implantation Tyrex pouch used Surgeon Dr. Bauer Etcher [employer] Surgeon(s) None Estimated Blood Loss 30 cc Findings Good lead position, good measurements Specimens None Anesthesia Local with sedation Complication(s) None Disposition PCU Description of Procedure After obtaining informed consent for the procedure, the patient was brought to the laboratory and prepped and draped in the standard sterile manner. The left prepectoral region was anesthetized with 1% lidocaine local anesthetic and left axillary venipuncture was performed by percutaneous technique and a guidewire placed through the left subclavian vein into the superior vena cava. The area was further infiltrated with 1% lidocaine local anesthetic and a 5 cm incision was made parallel to the left clavicle and 2 cm below it and carried down to the anterior pectoralis fascia. A pacemaker pocket was formed by blunt dissection anterior to the pectoralis fascia and a bacitracin-soaked sponge (50, 000 units in 50 cc normal saline solution) was placed in the pocket. An 8 [place] Medtronic lead introducer was placed over the guidewire into the left subclavian vein, the dilator and guidewire were removed and a bipolar active fixation steroid tipped ventricular lead was advanced through the introducer into the superior vena cava. A guidewire was placed through the introducer and the introducer was stripped from the lead and guidewire. Another 8 [place] Medtronic lead introducer was placed over the guidewire into the left subclavian vein, the dilator and guidewire were removed and a bipolar active fixation steroid tipped atrial lead was advanced through the introducer into the superior vena cava. A guidewire was placed back through the introducer and the introducer was stripped from the lead and guidewire. Using a curved stylette the ventricular lead was advanced through the right ventricular outflow tract into the pulmonary artery and then using a straight stylette was positioned in the right ventricular apex. The screw was extended fixing the lead in position. Pacing and sensing thresholds were evaluated in bipolar configuration and are recorded on the implant data sheet. Using a curved stylette the atrial lead was positioned in the region of the atrial appendage and the screw extended fixing the lead in position. Pacing and sensing thresholds were evaluated in bipolar configuration and are recorded on the implant data sheet. Once the leads were in position they were attached to the anterior pectoralis fascia using 2 sutures of 2-0 silk around each lead collar. The bacitracin- soaked sponge was removed from the pocket, hemostasis was obtained, the pacemaker was attached to the leads and placed in the pocket with the leads coiled beneath it. A Tyrex pouch was used to minimize the risk of infection with his diabetes. The incision was closed with a running double subcutaneous closure of 3-0 Vicryl absorbable suture, followed by running subcuticular skin closure of 4-0 Vicryl absorbable suture. Bacitracin ointment was placed on the incision and a pressure dressing applied. I attest to the content of the Intraoperative Record and any orders documented therein. Any exceptions are noted below.
--- NOTE | 2018-03-26 09:57 | Post Sedation Assessment ---
Post Sedation Assessment General Date of Sedation Mar 26, 2018. Vital Signs: Vital Signs Past 12 Hours Date Time Temp Pulse Resp B/P (MAP) Pulse Ox O2 Delivery O2 Flow Rate FiO2 03/26/18 09:35 67 16 113/58 (76) 99 Mask 4 03/26/18 07:23 31 13 146/45 (78) 98 03/26/18 06:02 34 4 132/52 (78) 94 03/26/18 05:03 31 11 123/46 (71) 93 03/26/18 04:02 36.6 31 0 110/62 (78) 93 03/26/18 03:01 28 15 111/52 (71) 89 03/26/18 02:03 32 11 121/41 (67) 93 03/26/18 01:01 33 17 117/56 (76) 91 03/26/18 00:02 36.6 34 3 89/38 (55) 93 03/25/18 23:02 37 11 125/45 (71) 99 03/25/18 22:02 34 10 122/51 (74) 95 Post Procedure Recovery Score Activity: (2) Moves 4 extremities * Respiration: (2) Deep breath/cough Circulation: (2) +/-20% PreAnes Value Consciousness: (2) Fully Awake Oxygen Saturation: (1) O2 needed for >90% Post Anesthesia Score: 9 Discharge Sedation Level of Care: Fast Track Phase II Post Sedation Plan On clinical assessment, the patient appears to have tolerated the sedation without complications. Patient is recovering as anticipated. Patient will continue to be monitored by nursing and may be discharged when sedation discharge criteria are met per below protocol. Upon Completions of procedure and additional 15 minutes continue every 5 minute vital signs and the P.A.R. score; then discharge to a Phase I or Fast Track to Phase II per the following guidelines: * Discharge Patient to appropriate Phase II area if PAR is 8 or greater or return to pre- procedure baseline. The post - procedure orders will be as directed. * If PAR score is less than 8 or not return to pre-procedure baseline then patient will follow Phase I monitoring till PAR is reached for Phase II. The Phase I may be done in procedure room or may call to secure a Phase I area. * If naloxone or flumazenil are used for reversal, hold in Phase I for an additional 60 -120 minutes before discharge to Phase II. Please call the Sedation Physician to re-evaluate and complete post-note for discharge to Phase II area. Do NOT discharge from procedure sedation or Phase 1 until post- sedation evaluation note is complete by procedure /sedation MD Sedation Discharge Instructions to be given to the patient at discharge to home.
[2018-03-26] MEDS ORDERED: KETOROLAC TROMETHAMINE 10 MG TAB PO PRN (10:00)
[2018-03-26] MEDS ORDERED: ACETAMINOPHEN 325 MG TAB PO PRN (10:00)
[2018-03-26] MEDS: NORMOSOL R 1,000 ML IV SCH (10:40)
[2018-03-26] MEDS: BECLOMETHASONE DIP HFA 80 MCG 8.7G INH INH SCH ×2 (10:40→21:20)
[2018-03-26] MEDS: NAPROXEN 250 MG TAB PO SCH ×2 (10:41→21:21)
[2018-03-26] MEDS ORDERED: NURSING VERBAL MED ORDER ONE ×2 (11:45→16:00)
--- NOTE | 2018-03-26 14:34 | Critical Care Progress Note ---
Critical Care Progress Note Date of Service Mar 26, 2018. Attending Dr. Nurys Jones The patient with history of rheumatoid arthritis, recurrent syncopal episode, was admitted to the hospital with complete heart block, the patient was seen by Dr. Ford and underwent placement of a pacemaker, the patient returned to the ICU for monitoring. The patient denies any chest pain at the moment, no shortness of breath, denies any episodes of dizziness, does not have any near syncopal symptoms. Objective General: Alert. nontoxic. Skin: Warm, dry, Head: Atraumatic Ears, nose, mouth and throat: airway patent, chin laceration well approximated no erythema nor discharge Cardiovascular: Normal peripheral perfusion: Bradycardia with complete heart block on monitor Respiratory: no respiratory distress Gastrointestinal: Non distended Musculoskeletal: No deformity Physical exam on 03/26/2018 revealed vital signs were stable, currently is paced with a heart rate at 60, S1-S2 regular rate and rhythm, lungs are clear to auscultation, abdomen is benign, no edema. Chest x-ray was reviewed from admission which was normal. Labs also were reviewed which showed CKD with mild elevation of BUN/creatinine. Assessment & Plan 1. Complete heart block status post pacemaker placement on 03/26/2018. 2. History of rheumatoid arthritis on methotrexate. 3. No evidence of Lyme disease, or hypothyroidism. Plan: 1. Continue to monitor in the ICU. 2. Heparin subcu for DVT prophylaxis. 3. Resume his medications. 4. Oral intake. 5. Discussed with the and the family at the bedside in details. All their questions been answered. 6. Discussed with cardiology, appreciate their input. 7. Discussed with the staff on rounds and details. 8.Ambulation. CCT was 35 minutes. Consults & Procedures Consultants: [facility] [place] Cardiology Procedures: Facial laceration repair March 24, 2018 Data Medications: Current Inpatient Medications Medications (Trade) Dose Ordered Sig/Will Route Start Time Stop Time Status Last Admin Dose Admin Parenteral Electrolyte Solution 1,000 ml @ 80 mls/hr [id number] IV 03/24/18 15:00 04/23/18 14:59 03/26/18 10:40 80 MLS/HR Miscellaneous Information (Consult Glycemic Management Pharmacy) 1 ea UD PRN N/A 03/24/18 14:14 04/23/18 14:13 Insulin Human Lispro (HumaLOG INSULIN PUMP) 1 ea ACHS N/A 03/24/18 16:00 04/23/18 15:59 03/26/18 11:00 1 EA Insulin Human Lispro (humaLOG) SLIDING SCALE PRN PRN SC 03/24/18 14:45 04/23/18 14:44 Glucose (Glucose 40% Gel) 15-30 GRAMS 15 GRAMS... UD PRN PO 03/24/18 14:45 04/23/18 14:44 Glucose (Glucose Chew Tab) 4-8 Tablets 4 Tabl... UD PRN PO 03/24/18 14:45 04/23/18 14:44 Glucagon (Glucagon Inj) 1 mg UD PRN IM 03/24/18 14:45 04/23/18 14:44 Dextrose (Dextrose 50% 50ML Syringe) 25-50ML 25ML FOR ... UD PRN IV 03/24/18 14:45 04/23/18 14:44 Carbohydrates (Carbohydrates For Hypoglycemia) 15-30 GRAMS 15 grams if BSG 54-69... UD PRN PO 03/24/18 14:45 04/23/18 14:44 Beclomethasone Dipropionate (Qvar 80 Mcg Hfa Inhaler) 2 puffs BID INH 03/24/18 21:00 04/23/18 20:59 03/26/18 10:40 2 PUFFS Folic Acid (Folvite Tab) 1 mg DAILY PO 03/25/18 09:00 04/24/18 08:59 03/26/18 10:41 1 MG Levothyroxine Sodium (Synthroid Tab) 125 mcg SuSa@0600 PO 03/25/18 06:00 04/24/18 05:59 03/25/18 06:01 125 MCG Levothyroxine Sodium (Synthroid Tab) 150 mcg MoTuWeThFr@0600 PO 03/26/18 06:00 04/25/18 05:59 03/26/18 06:06 150 MCG Methotrexate (Methotrexate Tab) 12.5 mg Sa@0900 PO 03/31/18 09:00 04/30/18 08:59 Naproxen (Naprosyn Tab) 500 mg BID PO 03/24/18 21:00 04/23/18 20:59 03/26/18 10:41 500 MG Acetaminophen (Tylenol Tab) 650 mg Q4H PRN PO 03/26/18 10:00 04/25/18 09:59 Ketorolac Tromethamine (Toradol Tab) 10 mg Q6H PRN PO 03/26/18 10:00 03/31/18 09:59 I & O: 24-Hour Column 03/27/18 08:00 Intake Total 883 ml Output Total 0 ml Balance 883 ml Vital Signs: Date Time Temp Pulse Resp B/P (MAP) Pulse Ox O2 Delivery O2 Flow Rate FiO2 03/26/18 11:34 Room Air 03/26/18 11:00 67 26 124/102 (109) 96 Room Air 03/26/18 10:46 70 21 135/75 (95) 98 Room Air 03/26/18 10:31 36.0 69 24 157/71 (99) 94 Room Air 03/26/18 10:16 68 25 139/72 (94) 94 Room Air 03/26/18 10:06 66 25 136/66 (89) 94 Room Air 03/26/18 09:50 60 16 118/60 (79) 95 Room Air 03/26/18 09:35 67 16 113/58 (76) 99 Mask 4 03/26/18 08:00 Room Air 03/26/18 07:23 31 13 146/45 (78) 98 03/26/18 06:02 34 4 132/52 (78) 94 03/26/18 05:03 31 11 123/46 (71) 93 03/26/18 04:02 36.6 31 0 110/62 (78) 93 03/26/18 03:01 28 15 111/52 (71) 89 03/26/18 02:03 32 11 121/41 (67) 93 03/26/18 01:01 33 17 117/56 (76) 91 03/26/18 00:02 36.6 34 3 89/38 (55) 93 03/25/18 23:02 37 11 125/45 (71) 99 03/25/18 22:02 34 10 122/51 (74) 95 03/25/18 20:02 36.7 35 4 116/64 (81) 96 03/25/18 20:00 Room Air 03/25/18 18:00 36 12 111/57 (75) 97 Room Air 03/25/18 17:00 35 15 139/62 (87) 99 Room Air 8/5/18 16:00 36.6 34 19 155/41 (79) 98 Room Air 03/25/18 15:00 35 12 97/78 (84) 98 Room Air Laboratory Results: Last 24 Hours Test 03/25/18 16:26 03/26/18 04:21 03/26/18 06:36 Bedside Glucose 152 mg/dl 106 mg/dl White Blood Count 9.53 K/uL Red Blood Count 3.87 M/uL Hemoglobin 12.5 g/dL Hematocrit 37.4 % Mean Corpuscular Volume 96.6 fL Mean Corpuscular Hemoglobin 32.3 pg Mean Corpuscular Hemoglobin Concent 33.4 g/dl Platelet Count 129 K/uL Mean Platelet Volume 11.3 fL Neutrophils (%) (Auto) 76.1 % Lymphocytes (%) (Auto) 16.6 % Monocytes (%) (Auto) 4.8 % Eosinophils (%) (Auto) 2.1 % Basophils (%) (Auto) 0.2 % Neutrophils # (Auto) 7.25 K/uL Lymphocytes # (Auto) 1.58 K/uL Monocytes # (Auto) 0.46 K/uL Eosinophils # (Auto) 0.20 K/uL Basophils # (Auto) 0.02 K/uL RDW Standard Deviation 50.9 fL RDW Coefficient of Variation 14.6 % Immature Granulocyte % (Auto) 0.2 % Immature Granulocyte # (Auto) 0.02 K/uL Sodium Level 139 mmol/L Potassium Level 4.7 mmol/L Chloride Level 109 mmol/L Carbon Dioxide Level 22 mmol/L Anion Gap 8.0 mmol/L Blood Urea Nitrogen 42 mg/dl Creatinine 1.85 mg/dl Est Creatinine Clear Calc Drug Dose 32.5 ml/min Estimated GFR () 43.6 Estimated GFR (Non- 37.6 BUN/Creatinine Ratio 22.5 Random Glucose 132 mg/dl Calcium Level 8.1 mg/dl Pro-B-Type Natriuretic Peptide 5963 pg/ml
[2018-03-26] MEDS: HEPARIN SOD 5000 UNIT/0.5 ML CARP SQ SCH (21:21)
[2018-03-27] VITALS (12 sets, daily range): BP systolic 117–165; BP diastolic 63–90; PULSE 62–84; TEMP 36–36.8; O2SAT 91–99
[2018-03-27 04:40] LABS: HEMATOCRIT 34.9 % (42-52); MEAN CELL VOLUME 95.1 fL (80-100); MEAN CORPUSCULAR HEMOGLOBIN 32.7 pg (25-34); MEAN CORPUSCULAR HGB CONC 34.4 g/dl (32-36); MEAN PLATELET VOLUME 10.5 fL (7.4-10.4); PLATELET COUNT 151 K/uL (130-400); RED CELL DISTRIBUTION WIDTH CV 14.1 % (11.5-14.5); RED CELL DISTRIBUTION WIDTH SD 48.5 fL (36.4-46.3); WHITE BLOOD COUNT 6.83 K/uL (4.8-10.8)
[2018-03-27 04:59] LABS: CALCIUM 7.8 mg/dl (8.5-10.1); CREATININE 1.45 mg/dl (0.60-1.40); PHOSPHORUS 3.4 mg/dl (2.5-4.9); POTASSIUM 4.7 mmol/L (3.5-5.1)
[2018-03-27] MEDS: LEVOTHYROXINE 150 MCG TAB PO SCH (06:16)
[2018-03-27] MEDS: HEPARIN SOD 5000 UNIT/0.5 ML CARP SQ SCH (06:21)
--- NOTE | 2018-03-27 07:40 | DIAGNOSTIC IMAGING REPORT ---
CHEST 2 VIEWS ROUTINE CLINICAL HISTORY: EXACT TIME ORDERED Evaluate for pneumothorax and lead placement COMPARISON STUDY: 03/24/2018 FINDINGS: Prominent pulmonary vasculature. Bipolar cardiac pacemaker with leads in good position. Small bilateral pleural effusions. IMPRESSION: 1. Permanent bipolar cardiac pacemaker in good position. 2. No evidence pneumothorax. 3. Mild congestive failure with small bilateral pleural effusions. The above report was generated using voice recognition software. It may contain grammatical, syntax or spelling errors. Electronically signed by: Anthony Livingston M.D. 03/27/2018 7:38 AM Dictated Date/Time: 03/27/2018 7:38 AM
[2018-03-27] MEDS: NAPROXEN 250 MG TAB PO SCH (07:50)
[2018-03-27] MEDS: BECLOMETHASONE DIP HFA 80 MCG 8.7G INH INH SCH (07:51)
[2018-03-27] MEDS ORDERED: FUROSEMIDE 40 MG/4 ML VIAL IV STA (08:30)
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
--- NOTE | 2018-03-27 10:04 | Discharge Instructions ---
Discharge Instructions Date of Service Mar 27, 2018. Admission Reason for Admission: Third Degree Heart Block Discharge Discharge Diagnosis / Problem: Pacemaker implantation Discharge Goals Goal(s): Improve disease control Activity Recommendations Activity Limitations: per Instructions/Follow-up section . Instructions / Follow-Up Instructions / Follow-Up ACTIVITY RECOMMENDATIONS: * Do not raise affected arm over head for 2 weeks. SPECIAL CARE INSTRUCTIONS: * If bleeding occurs, apply direct pressure to area for 5 minutes. * Call your doctor if you have severe pain, fever, drainage or bleeding at site. * Keep dressing on and dry for 48 hours then remove. * Keep any scheduled doctor's appointment. * Implant Card - hand held device with website information given. SKIN IRRITATION: * You may experience some redness and/or swelling in the area where radiation was administered. If any skin irritation occurs, please contact your family physician. FOLLOW UP VISIT: Dr. Bauer , March 29, 2018, 10:00 AM. Current Hospital Diet Patient's current hospital diet: AHA Diet (Heart Healthy), Diabetes Type 2 Diet Discharge Diet Recommended Diet: AHA Diet (Heart Healthy) Pending Studies Studies pending at discharge: no Laboratory Results Hemoglobin A1c Test 03/24/18 10:34 Range/Units Estimated Average Glucose 151 mg/dl Hemoglobin A1c 6.9 H 4.5-5.6 % Medical Emergencies . Who to Call and When: Medical Emergencies: If at any time you feel your situation is an emergency, please call 911 immediately. . Non-Emergent Contact Non-Emergency issues call your: Primary Care Provider . . "Provider Documentation" section prepared by Jorge Bauer. .
--- NOTE | 2018-03-27 10:23 | Discharge Instructions ---
Discharge Instructions Date of Service Mar 27, 2018. Admission Reason for Admission: Third Degree Heart Block Discharge Discharge Diagnosis / Problem: Complete Heart Block Discharge Goals Goal(s): Decrease discomfort, Improve function, Increase independence, Improve disease control, Improve nutritional status, Learn about illness Activity Recommendations Activity Limitations: per Instructions/Follow-up section . Instructions / Follow-Up Instructions / Follow-Up You were diagnosed with a complete 3rd degree heart block. A pacemaker was placed as a treated for this condition. This pacemaker appears to be working well. A cardiology follow up appointment will be made for your after discharge. Please keep this appointment. Information on Pacemakers will be printed for you on discharge. Please read this information carefully. Please resume all of your medications as prescribed. Your HBA1C level was 6.9. Please continue to take your insulin as prescribed and watch your blood sugars. Follow up with your primary care provider for regular follow up on your Diabetes. A CAT scan found that you had a Right intracapsular condyle fracture in your jaw. [place] [facility] [place]. Nunez recommends follow up with your OMFS physician, Dr. Mike Sy, and after that appointment, a follow up with your dentist Dr. Andria Marie for evaluation of possible tooth fractures. Our case planner will try to arrange these follow up appointments for you. Please keep these appointments. Please try to avoid movements that cause significant pain in your jaw. Also avoid any potential trauma to the jaw. Return to the ER if your symptoms return or if you continue to experience near or actual falls. Current Hospital Diet Patient's current hospital diet: AHA Diet (Heart Healthy), Diabetes Type 2 Diet Discharge Diet Recommended Diet: Regular Diet, Diabetes Type 2 Diet Pending Studies Studies pending at discharge: no Laboratory Results Hemoglobin A1c Test 03/24/18 10:34 Range/Units Estimated Average Glucose 151 mg/dl Hemoglobin A1c 6.9 H 4.5-5.6 % Medical Emergencies . Who to Call and When: Medical Emergencies: If at any time you feel your situation is an emergency, please call 911 immediately. . Non-Emergent Contact Non-Emergency issues call your: Primary Care Provider, Vehicle Modification Technician . . "Provider Documentation" section prepared by Anthony Malcolm. . Resident Involvement: Resident Care Provided Care Provided: Adult [facility] Medicine
--- NOTE | 2018-03-27 11:54 | Discharge Summary ---
Discharge Summary Date of Service Mar 27, 2018. Discharge Summary Admission Date: Mar 24, 2018 at 12:53 Discharge Date: Mar 27, 2018 Discharge Disposition: Home Principal Diagnosis: 3rd Degree Heart Block Immunizations: Have You Had Influenza Vaccine: Yes History of Tetanus Vaccine?: Yes History of Pneumococcal: No History of Hepatitis B Vaccine: No Procedures: CT SCAN OF THE BRAIN WITHOUT IV CONTRAST IMPRESSION: 1. There is no hemorrhage, mass effect, or evidence of acute territorial ischemia by CT criteria. 2. There is no depressed calvarial fracture. 3. There is a comminuted fracture of the right mandibular neck. 4. Paranasal sinus disease as above. CT SCAN OF THE CERVICAL SPINE IMPRESSION: 1. There is a comminuted fracture of the right mandibular neck and condyle with small distracted fragments. 2. The remainder of the mandible appears intact. There is no temporomandibular joint dislocation. 3. No additional facial bone fracture is seen. 4. Paranasal sinus disease as above. ULTRASOUND KIDNEYS AND BLADDER IMPRESSION: 1. The kidneys are normal in size. 2. There is fullness of the right renal collecting system without micaela hydronephrosis identified in either kidney. 3. There is trace nonspecific right-sided perinephric fluid. 4. The bladder was normal as visualized. ECHOCARDIOGRAM * 1. Normal LV size. Mild concentric LVH. * 2. Hyperdynamic LV. LVEF greater than 70%. No regional wall motion abnormalities. * 3. Normal RV size and function. * 4. Severe mitral annular calcification. Mild mitral stenosis. Trace MR * 5. Mild aortic insufficiency. * 6. Diastolic dysfunction. * 7. No prior studies for comparison. Consultations: CARDIOLOGY 1. Complete heart block: He seems to have symptomatic complete heart block that was probably present at least intermittently for about a week, he is relatively asymptomatic at rest therefore he could have been in this rhythm for the entire week or perhaps it is intermittent. He had mainly exertional symptoms, at rest he feels relatively well. He did have a syncopal event but it was with exertion and may not represent a different arrhythmia. His pacemaker will control his heart block and seems to be working well. 2. Syncope: His syncope recently is almost certainly due to his arrhythmia, whether he is having intermittent episodes of heart block or whether he has been in heart block for a week and with exertion he has transient hypotension is not clear. Either way now with a pacemaker that will presumably that will take care of the syncope. The pacemaker will also monitor for other arrhythmias should that be a cause but that is very unlikely. OMFS 1. The patient has been treated by Dr. Mike Sy, an oral and maxillofacial surgeon in [place] for a number of years. Dr. Sy has been placing implants for Mr. Palacios recently. I would suggest that Mr. Palacios contact Dr. Sy for a followup of his right intracapsular condyle fracture. I do not think anything needs to be done under the long-term followup and any treatment such as occlusal equilibration or appliance therapy should be instituted. 2. Once the patient is cleared and discharged from the hospital, he should contact his general dentist, Dr. Andria Marie who is located in [place], [place] to have her evaluate tooth #5 and tooth #29. If these teeth can be restored, then they should be. If teeth need to be removed, then Dr. Marie and Dr. Sy could confer and set up a treatment plan. I told Mr. Palacios if he should run into any issues concerning followup either from Dr. Sy or from Dr. Marie, to contact me. I gave Mr. Palacios my phone number, and I discussed this with his family, so at this time I feel that under circumstances, Mr. Palacios is doing quite well from his oral and maxillofacial intracapsular right temporomandibular joint fracture. There is comminution, but it is all within the capsule. There is minimal displacement. His occlusion is stable and reproducible with slight deviation toward the right side and wide opening, minimal pain, and good occlusal contact of his teeth. At this time, I do not feel that other than followup by an oral surgeon, preferably Dr. Sy, that this patient needs any further behavioral health counselor intervention. I understand that the patient will be having a permanent pacemaker placed tomorrow and I see no contraindications from this from an oral surgical point of view. Most likely this would be done under deep IV sedation and placement of any type of oral airway without opening the mouth too abruptly would be acceptable. Medication Reconciliation Continued Medications: Beclomethasone Dip (Qvar) 80 Mcg/Act Aer 2 PUFF INH BID RINSE MOUTH AFTER EACH USE Folic Acid (Folic Acid) 1 Mg Tab 1 MG PO DAILY Glucagon (Glucagon Emergency Kit) 1 Mg Kit 1 DOSE SQ DIRECTED Insulin Human Lispro (Insulin Humalog Pump ) Pump 1 EA N/A UD Levothyroxine Sodium (Levothyroxine Sodium) 125 Mcg Tab 125 MCG PO 2XWK SATURDAYS AND SUNDAYS Levothyroxine Sodium (Levothyroxine Sodium) 150 Mcg Tab 150 MCG PO 5XWK MONDAY THRU MONDAY Methotrexate (Methotrexate) 2.5 Mg Tab 12.5 MG PO WK 5 TABLETS ON SATURDAYS Naproxen (Naprosyn) 500 Mg Tab 500 MG PO BID, TAB Vardenafil (Levitra) 20 Mg Tab 20 MG PO DIRECTED PRN for PRN Discharge Exam Seen and examined at bedside. Talking on phone during exam. No acute complaints. Review of Systems: Constitutional: No fever, No chills, No weight loss ENT: No hearing loss Respiratory: No sputum, No shortness of breath, No dyspnea on exertion Cardiovascular: No chest pain Abdomen: No pain, No nausea, No vomiting, No diarrhea, No constipation Musculoskeletal: No joint pain Genitourinary - Female: No dysuria, No urinary frequency, No urinary urgency Genitourinary - Male: No hematuria Neurologic: No memory loss Psychiatric: No depression symptoms Endocrine: No fatigue Integumentary: No rash Physical Exam: General Appearance: WD/WN, no apparent distress, + pertinent finding (well healing laceration to lip) Eyes: normal inspection, PERRL ENT: normal ENT inspection, hearing grossly normal Neck: supple, no adenopathy Respiratory/Chest: chest non-tender, lungs clear, normal breath sounds, no respiratory distress, no accessory muscle use Cardiovascular: regular rate, rhythm, no edema, no gallop, no JVD, no murmur , normal peripheral pulses, + pertinent finding (subcutaneous pacemaker on chest ) Abdomen / GI: normal bowel sounds, non tender, soft, no organomegaly, no pulsatile mass Extremities: normal inspection, no calf tenderness, normal capillary refill , no pedal edema, normal range of motion Neurologic/Psychiatric: staff midwife/apprenticeship director II-XII nml as tested, no motor/sensory deficits , alert, normal mood/affect, normal reflexes, oriented x 3 Hospital Course 62-year-old male admitted for syncope, found to be in third-degree heart block. CT found a mandibular fracture. Pacemaker placed on 03/26/2018. Patient doing well post placement. Follow up with Cardiology, [facility] and Dentist will be arranged for patient on discharge. PMH: Insulin-dependent diabetes, rheumatoid arthritis, hypertension, hypothyroidism, asthma, DKA. Complete heart block: - Noted on EKG. Unknown duration, suspected to be 2-3 weeks. The cause of the heart block is unclear. Lyme testing is negative. TSH normal. - Permanent pacemaker placement Mar. - [place] up [place] [facility] Syncope: - Likely the result of his complete heart block. Elevated BNP: - Echocardiogram normal. Mandible fracture: - As seen on CT of the neck and face. S/p chin suture placement on 24 March. - We will arrange OMFS and Denstistry Follow up. NALINI (Resolved) - Admit Cr 2.5 (prior comparisons around 1.2). Elevated BUN as well, suggesting prerenal source. - Acutely planning judicious IVF use given elevated BNP. IDDM: - Admit glucose of 266. Patient has an insulin pump which he says he believes is working properly. Early comparisons of his pump versus hospital glucose values have been matching. - HBA1C was 6.9. - PCP follow up. Hypothyroidism: Continue home Synthroid. Rheumatoid arthritis: Continue home methotrexate weekly. Resident Physician Supervision Note: I interviewed and examined the patient. Discussed with Dr. Malcolm and agree with findings and plan as documented in the note. Any exceptions or clarifications are listed here: None Documented By: Ed Hawkins feeling better walking around well wants to go home vitals noted nad breathing unlabored no pallor or icterus complete heart block w traumatic syncope -doing better stable for home jaw fracture -stable for outpt f/u Total Time Spent: Greater than 30 minutes (68min) This includes examination of the patient, discharge planning, medication reconciliation, and communication with other providers. Discharge Instructions Please refer to the electronic Patient Visit Report (Discharge Instructions) for additional information. Additional Copies To Jorge Bauer M.D.; Alfred Gage M.D. Resident Involvement: Resident Care Provided Care Provided: Adult [facility] Medicine
--- NOTE | 2018-03-27 21:05 | Critical Care Progress Note ---
Critical Care Progress Note Date of Service Mar 27, 2018. Attending Dr. Nuno Subjective Asymptomatic this a.m., the patient denies any chest pain, no shortness of breath, he was ambulatory, he has been given instructions by Dr. Rollins in terms of his arm lifting on the left side. He was also given an appointment with Dr. Rollins to follow as an outpatient. Objective General: Alert. nontoxic. Skin: Warm, dry, Head: Atraumatic Ears, nose, mouth and throat: airway patent, chin laceration well approximated no erythema nor discharge Cardiovascular: Normal peripheral perfusion: Bradycardia with complete heart block on monitor Respiratory: no respiratory distress Gastrointestinal: Non distended Musculoskeletal: No deformity Physical exam on 03/26/2018 revealed vital signs were stable, currently is paced with a heart rate at 60, S1-S2 regular rate and rhythm, lungs are clear to auscultation, abdomen is benign, no edema. Chest x-ray was reviewed from admission which was normal. Labs also were reviewed which showed CKD with mild elevation of BUN/creatinine. Physical exam on 03/07/2018 showed stable vital signs, pacemaker site appears clean, S1-S2 regular rate and rhythm, distant breath sounds, abdomen is benign, no edema. Labs also were reviewed. Assessment & Plan 1. Complete heart block status post pacemaker placement on 03/26/2018. 2. History of rheumatoid arthritis on methotrexate. 3. No evidence of Lyme disease, or hypothyroidism. Plan: 1. the patient continued to do well. 2. Patient ambulates without difficulty. 3. Continue his rheumatoid arthritis medication. 4. Appreciate Dr. Rollins input. 5. Patient will be discharged home with follow-up appointments. 6. The patient received a single dose of Lasix due to increased pulmonary vascular congestion. He was asymptomatic. Thank you, will follow as needed. Consults & Procedures Consultants: [facility] [place] [facility] Procedures: Facial laceration repair March 24, 2018 Data Vital Signs: Date Time Temp Pulse Resp B/P (MAP) Pulse Ox O2 Delivery O2 Flow Rate FiO2 03/27/18 10:39 36.0 79 19 99 Room Air 03/27/18 10:30 79 19 99 Room Air 03/27/18 09:14 Room Air 03/27/18 09:00 82 13 146/73 (97) 99 Room Air 03/27/18 08:01 81 22 149/71 (97) 99 Room Air 03/27/18 07:00 36.0 84 16 99 Room Air 03/27/18 06:01 72 22 165/90 (115) 96 Room Air 03/27/18 05:01 69 22 144/65 (91) 92 Room Air 03/27/18 04:01 36.8 67 9 150/71 (97) 95 Room Air 03/27/18 03:02 67 16 117/63 (81) 94 Room Air 03/27/18 02:02 69 26 131/84 (100) 95 Room Air 03/27/18 01:02 71 12 135/68 (90) 93 Room Air 03/27/18 00:01 36.6 62 15 137/67 (90) 91 Room Air 03/26/18 23:01 68 17 119/60 (79) Room Air 03/26/18 22:02 71 19 122/63 (82) 95 Room Air 03/26/18 21:03 74 29 166/59 (94) 97 Room Air Laboratory Results: Last 24 Hours Test 03/27/18 04:29 03/27/18 05:58 03/27/18 06:02 White Blood Count 6.83 K/uL Red Blood Count 3.67 M/uL Hemoglobin 12.0 g/dL Hematocrit 34.9 % Mean Corpuscular Volume 95.1 fL Mean Corpuscular Hemoglobin 32.7 pg Mean Corpuscular Hemoglobin Concent 34.4 g/dl RDW Standard Deviation 48.5 fL RDW Coefficient of Variation 14.1 % Platelet Count 151 K/uL Mean Platelet Volume 10.5 fL Sodium Level 138 mmol/L Potassium Level 4.7 mmol/L Chloride Level 107 mmol/L Carbon Dioxide Level 25 mmol/L Anion Gap 6.0 mmol/L Blood Urea Nitrogen 37 mg/dl Creatinine 1.45 mg/dl Est Creatinine Clear Calc Drug Dose 41.4 ml/min Estimated GFR () 58.6 Estimated GFR (Non- 50.5 BUN/Creatinine Ratio 25.5 Random Glucose 131 mg/dl Calcium Level 7.8 mg/dl Phosphorus Level 3.4 mg/dl Magnesium Level 2.1 mg/dl Bedside Glucose 124 mg/dl 118 mg/dl
[2018-03-31] MEDS ORDERED: METHOTREXATE 2.5 MG TAB PO SCH (09:00)
== END 2018-03-27 12:33 | disposition home or self-care (01) | DRG 243 ==
LOC: C.EDB 10:12 → C.MSICU 12:53 → ENRESERV 12:59 → C.2T 03-27 08:08 → C.MSICU 03-27 08:08 → ENRESERV 03-27 09:02 → CANBEDREQ 03-27 09:16
PROVIDERS: ADMIT Family Medicine; ATTEND Family Medicine
PROC: 02H73JZ Insertion of Pacemaker Lead into Left Atrium, Percutaneous Approach (ICD-10-PCS; principal; 2018-03-26 07:40)
PROC: 02HL3JZ Insertion of Pacemaker Lead into Left Ventricle, Percutaneous Approach (ICD-10-PCS; principal; 2018-03-26 07:40)
PROC: 0JH606Z Insertion of Pacemaker, Dual Chamber into Chest Subcutaneous Tissue and Fascia, Open Approach (ICD-10-PCS; principal; 2018-03-26 07:40)
DX: I44.2 Atrioventricular block, complete (principal); S02.611A Fracture of condylar process of right mandible, initial encounter for closed fracture; N17.9 Acute kidney failure, unspecified; S00.80XA Unspecified superficial injury of other part of head, initial encounter; E03.9 Hypothyroidism, unspecified; E11.9 Type 2 diabetes mellitus without complications; I10 Essential (primary) hypertension; M06.9 Rheumatoid arthritis, unspecified; Z79.4 Long term (current) use of insulin; W19.XXXA Unspecified fall, initial encounter; Y92.89 Other specified places as the place of occurrence of the external cause; Z96.41 Presence of insulin pump (external) (internal)

== ENCOUNTER 2023-01-14 07:57 | Inpatient (IN) ==
[2023-01-14] MEDS ORDERED: SODIUM CHLORIDE 0.9% 1000ML 1,000 ML IV ONE (08:04)
[2023-01-14] MEDS ORDERED: DEXTROSE 50% 50 ML SYRINGE IV ONE ×2 (08:04→08:05)
[2023-01-14] MEDS ORDERED: LORazepam 2 MG/1 ML VIAL IV STA (08:12)
[2023-01-14 08:20] LABS: Base Excess VBG 0.3 mEq/L; HCO3 VBG 25 mmol/L; Oxygen Saturation VBG 68.3 %; PCO2 VBG 42 mmHg (38-50); PO2 VBG 39 mmHg; pH VBG 7.39 (7.36-7.41)
[2023-01-14 08:26] LABS: iSTAT Creatinine 1.5 mg/dl (0.6-1.3); iSTAT Hemoglobin 14.3 g/dl (14.0-18.0); iSTAT Ionized Calcium 1.18 mmol/l (1.12-1.32); iSTAT Potassium 3.9 mmol/L (3.3-5.0)
--- NOTE | 2023-01-14 08:35 | Emergency Department Note ---
Impression & Plan Acute encephalopathy, Cardiac pacemaker, CKD (chronic kidney disease), stage III, Hypoglycemic event in diabetes ED Provider Note NAME: SHELLY OSORIO AGE: 67 SEX: M ARRIVES VIA: Ambulance INFORMANT: Patient ED PROVIDER(S): Rian Rodriguez MD CHIEF COMPLAINT: Unresponsive. Hypoglycemia PLAN: Disposition: Admit MEDICAL DECISION MAKING: The patient is a 67-year-old gentleman with a past medical history of type 1 diabetes on insulin pump, CKD, asthma, history of NSVT, history of heart block status post PPM, rheumatoid arthritis, hypertension, hypothyroidism who presents to the emergency department via EMS for unresponsiveness where he was found this morning by family and last seen normal at around 9:30 PM last night. This provided discussed case with EMS crew via medical command prior to arrival. EMS found the patient's blood sugar to be in the 20s and the patient was nonresponsive with drool coming from his mouth. Insulin pump removed by EMS in the field and he was given D10 with blood sugar improving to the 140s where the patient then had improvement in mental status but combative and encephalopathic not following commands. He required IM Ativan and had received a total of 1 mg. Family reported that the patient has a history of episodes of low blood sugar. He was found nearby nutrition bars as if he was attempting to get his blood sugar up but was unsuccessful. Prior today they report he was feeling healthy denies fevers, chills, cough, congestion, GI or symptoms. Family denies current or prior history of excessive etoh use. Deny drug use otherwise. On arrival the patient is combative with eyes closed and appears to localize to pain and is combative. GCS is 8. There is no stridor and he initially appears to handling his secretions. BSG was noted to have down trended to 69. He was given 2 amps of D50 with BSG increasing to 200s but no change in mental status. Concerned for metabolic encephalopathy 2/2 prolong hypoglycemia. However, evaluation for alternate etiologies also pursued. EKG is paced without overt acute ischemia. WBC and platelets wnl. H/H similar to prior. VBG unremarkable. Chemistry without acidosis. Cr. 1.4 similar to prior range of values. Electrolytes unremarkable. LFTs without significant abnormality. Procalcitonin is undetectable. TSH wnl. UA without convincing evidence of infection. Drug screen negative. Medical etoh undetectable. Ammonia wnl. Covid-19 RNA, NAAT negative. CT head and CTA head/neck performed. No acute ICH or CVA though suboptimal 2/2 motion. Old right cerebellar infarct and Carotid disease is noted. Paranasal sinus disease is present Nonspecific ground glass densities at lung apices noted. Upon return from CT the patient's mental status and not improved despite resolut ion of hypoglycemia. He continued to moan and appeared to have mild increased effort to clear secretions. Concern for the patient's airway was reviewed with the patient's and daughter who agreed to intubation. Intubation performed per procedure note without difficulty. Case was discussed with Marnie Edwards [facility] [place] PAC with Dr. Rojas [facility] [place] hospitalist, who will evaluate the patient for admission. Case also discussed with Dr. Rolon, ICU facilities administrator. Appreciate consultation/recommendations. Extubation performed for better neurologic assessment given suspected prolonged hypoglycemic event. CXR performed after intubation/extubation demonstrates nonspecific interstitial thickening and hilar hazy airspace opacities. Further management per admitting team and ICU. Triage Nursing notes reviewed and agree them. Prior/outside medical records reviewed Vital Signs: reviewed Differential diagnosis: Infection, hypoglycemia, electrolyte abnormalities, overdose, toxicologic, cardiac sources, intracerebral event, neurologic, trauma, as well as other pathologies. ER treatment provided: See below. Diagnostics interpreted by me: ECG: Atrial sensed, Ventricular paced rhythm, 95 bpm, no ectopy, no overt acute ischemia. Cardiac Monitoring: An order for continuous cardiac monitoring was placed and demonstrated Atrial sensed, Ventricular paced rhythm, 95 bpm, no ectopy. Laboratory studies: See below Imaging studies: See below Consultation(s): Marnie Edwards [facility] [place] PAC with Dr. Rojas [facility] [place] hospitalist. Dr. Rolon, ICU facilities administrator. HPI: The patient is a 67-year-old gentleman with a past medical history of type 1 diabetes on insulin pump, CKD, asthma, history of NSVT, history of heart block status post PPM, rheumatoid arthritis, hypertension, hypothyroidism who presents to the emergency department via EMS for unresponsiveness where he was found this morning by family and last seen normal at around 9:30 PM last night. This provided discussed case with EMS crew via medical command prior to arrival. EMS found the patient's blood sugar to be in the 20s and the patient was nonresponsive with drool coming from his mouth. Insulin pump removed by EMS in the field and he was given D10 with blood sugar improving to the 140s where the patient then had improvement in mental status but combative and encephalopathic not following commands. He required IM Ativan and had received a total of 1 mg. Family reported that the patient has a history of episodes of low blood sugar. He was found nearby nutrition bars as if he was attempting to get his blood sugar up but was unsuccessful. Prior today they report he was feeling healthy denies fevers, chills, cough, congestion, GI or symptoms. Family denies current or prior history of excessive etoh use. Deny drug use otherwise. ROS: See above HPI for pertinent positives & negatives. A total of 10 systems reviewed and were otherwise negative. VITALS:See Below PHYSICAL EXAMINATION: GENERAL: Awake. GCS 8, encephalopathic. HENT: Normocephalic, atraumatic. Oropharynx with dry mucous membranes and otherwise unremarkable. EYES: Closed. Normal conjunctiva. Sclera non-icteric. Pupils 1-2mm bilaterally, sluggish. NECK: Supple. No nuchal rigidity. FROM. No JVD. RESPIRATORY: Diminished at bases otherwise clear to auscultation. CARDIAC: Regular rate, normal rhythm. Extremities warm and well perfused. Pulses equal. ABDOMEN: Soft, non-distended. No tenderness to palpation. No rebound or guarding. No masses. RECTAL: Deferred. MUSCULOSKELETAL: Chest examination reveals no tenderness. The back is symmetrical on inspection without obvious abnormality. There is no CVA tenderne ss to palpation. No joint edema. LOWER EXTREMITIES: Calves are equal size bilaterally and non-tender. No edema. NEURO: Encephalopathic, combative, appears to localize the pain. Eyes are closed. Incomprehensible sounds are noted. GCS is 8. 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 No jaundice noted. ED COURSE: Procedures: Endotracheal Intubation Indication: GCS 8, airway protection. The patient was on 100% oxygen via NRB prior to the procedure. Suction, airway equipment, RSI drugs, respiratory equipment, and appropriate personnel were prepared prior to the initiation of the procedure. A time out was taken. Induction was performed with etomidate and paralysis with succinylcholine. After observing the clinical benefit of the medications, the airway was easily visualized utilizing a Mac 3 glidescope. A 7.5 size ETT tube was placed atraumatically to 23 cm using standard technique. The cuff inflated without signs of malfunction. There were bilateral breath sounds, positive colormetric change, no gastric sounds, a good capnography waveform, and post procedure pulse oximetry was 100%. Post intubation sedation with propofol gtt initiated. There were no complications. Critical Care: I have personally spent greater than 65 minutes of critical care time in the direct management of this patient. This includes bedside care, interpretation of diagnostic studies, and testing, discussion with consultants, patient, and family members, and other required patient management activities. This 65 minutes is in excess of all separately billable procedures. Rian Rodriguez MD Past Med/Surg History Medical History Chronic cough reason inhaler Diabetes mellitus type 1 Hypothyroidism Insulin pump in place Type 1 diabetes mellitus, uncontrolled Surgical History History of colonoscopy History of surgical procedure on eye proper using laser bilt eyes History of tooth extraction Pacemaker 2017 @ [facility]--meditronic Dr. Bauer S/P insertion of insulin pump Family History Other Lung disease No family history of adverse response to anesthesia Denies family history of Ovarian cancer Prostate cancer Heart disease Breast cancer Colorectal cancer Social History Smoking Status: Never smoker Second Hand Exposure: No; Do You Dip or Chew Tobacco: No; Hx Alcohol Use: Yes Alcohol type: beer, wine and hard liquor Hx Substance Use: No Preferred Language: Iraqi Communication Ability: Impaired Hearing Ability: Normal Supervisor Packing Required: No Beliefs That Will Affect Care: None marital status: Current Living Situation: Spouse current occupational status: retired Feels Safe at Home: Yes Safety Concerns: Feels Safe At This Time Dental Care, Regularly: Yes Physical Activity Frequency: Daily Physical Activity Frequency Comment: spin bike, free weights, stretching Seatbelt Use: always Sunscreen Use: Yes Assistive Devices: None Allergies Allergies Allergy/AdvReac Type Severity Reaction Status Date / Time No Known Drug Allergies Allergy Verified 12/13/22 09:23 Home Meds Home Medications Medication Instructions Recorded Confirmed cholecalciferol (vitamin D3) 25 0 unit PO QAM 06/24/19 01/14/23 mcg (1,000 unit) capsule (Vitamin D3) ferrous sulfate 325 mg (65 mg 0 mg PO QAM 06/24/19 01/14/23 iron) tablet (Iron (ferrous sulfate)) methotrexate sodium 2.5 mg tablet 10 mg PO WEEKLY #72 tabs 09/16/20 01/14/23 blood-glucose meter,continuous #1 ea 02/23/21 12/13/22 (Dexcom G6 Insurance Sales Specialist) blood-glucose sensor (Dexcom G6 #3 ea 02/23/21 12/13/22 Sensor device) blood-glucose transmitter (Dexcom #1 ea 02/23/21 12/13/22 G6 Transmitter device) subcutaneous insulin pump (Cloudwise #1 ea 02/23/21 12/13/22 670G Insulin Pump) fluticasone propionate 44 0 puff inhalation BID 01/14/23 01/14/23 mcg/actuation HFA aerosol inhaler (Flovent HFA) sildenafil 100 mg tablet PO DAILY PRN sexual activity 01/14/23 01/14/23 Previous Rx's Medication Instructions Recorded folic acid 1 mg tablet 1 mg PO QAM #90 tabs 09/04/19 blood sugar diagnostic (Contour #100 ea 08/24/21 Next Test Strips) Humalog U-100 Insulin 100 unit/mL 50 unit (0.5 mL) continuous 05/10/22 subcutaneous solution (insulin subcutaneous infusion DAILY 90 lispro) days #5 vials levothyroxine 112 mcg tablet 112 mcg PO DAILY 90 days #90 tabs 12/21/22 Results & Data (ED) Vital Signs Vital Signs - 24 hr 01/14/23 08:01 01/14/23 08:04 01/14/23 08:10 Temperature Temperature Source Pulse Rate 93 H 97 H 104 H Pulse Rate from SpO2 Sensor Respiratory Rate 20 19 Respiratory Effort / Characteristics Non-Labored Respiratory Depth Normal Blood Pressure 190/84 H Blood Pressure Mean 119 Blood Pressure Position Lying Pulse Oximetry 99 99 Oxygen Delivery Method Room Air Room Air Oxygen Flow Rate Fraction of Inspired Oxygen Sepsis Recent Fever Within 48 Hours No Sepsis New/Unexplained Change in Mental Status N/A Sepsis Action Taken by Nursing No Action Required End-Tidal CO2 01/14/23 08:36 01/14/23 08:03 01/14/23 08:10 Temperature 37 C Temperature Source Rectal Pulse Rate 94 H 96 H Pulse Rate from SpO2 Sensor 95 H 100 H Respiratory Rate 18 18 Respiratory Effort / Characteristics Respiratory Depth Blood Pressure Blood Pressure Mean Blood Pressure Position Pulse Oximetry 96 95 Oxygen Delivery Method Room Air Nasal Cannula Oxygen Flow Rate 3 Fraction of Inspired Oxygen Sepsis Recent Fever Within 48 Hours Sepsis New/Unexplained Change in Mental Status Sepsis Action Taken by Nursing End-Tidal CO2 01/14/23 08:36 01/14/23 08:50 01/14/23 08:40 Temperature Temperature Source Pulse Rate 109 H 99 H 105 H Pulse Rate from SpO2 Sensor 110 H 105 H Respiratory Rate 21 20 21 Respiratory Effort / Characteristics Respiratory Depth Blood Pressure 176/100 H Blood Pressure Mean 125 Blood Pressure Position Pulse Oximetry 95 100 94 Oxygen Delivery Method Nasal Cannula Non-rebreather Oxygen Flow Rate 3 15 Fraction of Inspired Oxygen 35 Sepsis Recent Fever Within 48 Hours Sepsis New/Unexplained Change in Mental Status Sepsis Action Taken by Nursing End-Tidal CO2 01/14/23 08:50 01/14/23 09:08 01/14/23 09:10 Temperature Temperature Source Pulse Rate 106 H 97 H 115 H Pulse Rate from SpO2 Sensor 107 H 96 H 96 H Respiratory Rate 15 20 22 Respiratory Effort / Characteristics Respiratory Depth Blood Pressure 180/112 H 156/80 H 163/80 H Blood Pressure Mean 134 105 107 Blood Pressure Position Pulse Oximetry 98 98 98 Oxygen Delivery Method Mechanical Vent Mechanical Vent Mechanical Vent Oxygen Flow Rate Fraction of Inspired Oxygen Sepsis Recent Fever Within 48 Hours Sepsis New/Unexplained Change in Mental Status Sepsis Action Taken by Nursing End-Tidal CO2 38 36 01/14/23 09:20 01/14/23 09:31 01/14/23 09:52 Temperature Temperature Source Pulse Rate 112 H 97 H 97 H Pulse Rate from SpO2 Sensor 93 H 96 H Respiratory Rate 20 22 22 Respiratory Effort / Characteristics Respiratory Depth Blood Pressure 181/71 H 140/81 164/62 H Blood Pressure Mean 107 100 96 Blood Pressure Position Pulse Oximetry 96 100 100 Oxygen Delivery Method Mechanical Vent Mechanical Vent Nasal Cannula Oxygen Flow Rate 4 Fraction of Inspired Oxygen Sepsis Recent Fever Within 48 Hours Sepsis New/Unexplained Change in Mental Status Sepsis Action Taken by Nursing End-Tidal CO2 51 01/14/23 10:00 01/14/23 10:10 01/14/23 10:20 Temperature Temperature Source Pulse Rate 103 H 106 H 100 H Pulse Rate from SpO2 Sensor 104 H 104 H 99 H Respiratory Rate 20 17 20 Respiratory Effort / Characteristics Respiratory Depth Blood Pressure 167/96 H 170/102 H 169/99 H Blood Pressure Mean 119 124 122 Blood Pressure Position Pulse Oximetry 99 97 100 Oxygen Delivery Method Nasal Cannula Nasal Cannula Nasal Cannula Oxygen Flow Rate 4 4 4 Fraction of Inspired Oxygen Sepsis Recent Fever Within 48 Hours Sepsis New/Unexplained Change in Mental Status Sepsis Action Taken by Nursing End-Tidal CO2 Laboratory Data Attestation: I reviewed the patient's lab results. 01/14/23 08:12 01/14/23 08:12 Lab Results 01/14/23 01/14/23 01/14/23 Range/Units 08:03 08:12 08:12 WBC 8.39 (4.8-10.8) K/ul RBC 4.02 L (4.70-6.10) M/uL Hgb 13.6 L (14.0-18.0) g/dl POC Hgb (14.0-18.0) g/dl Hct 40.8 L (42.0-52.0) % POC Hct (42-52) % MCV 101.5 H (80.0-100.0) fL MCH 33.8 (25.0-34.0) pg MCHC 33.3 (32.0-36.0) g/dL RDW Std Deviation 51.0 H (36.4-46.3) fL RDW Coeff of Ann 13.6 (11.5-14.5) % Plt Count 161 (130-400) K/uL MPV 10.0 (9.4-12.4) fL Immature Gran % (Auto) 0.4 % Neut % (Auto) 86.5 % Lymph % (Auto) 6.9 % Claiborne % (Auto) 5.6 % Eos % (Auto) 0.4 % Baso % (Auto) 0.2 % Neut # (Auto) 7.26 H (1.40-6.50) K/uL Lymph # (Auto) 0.58 L (1.2-3.4) K/uL Cla[place]orne # (Auto) 0.47 (0.11-0.59) K/uL Eos # (Auto) 0.03 (0-0.50) K/uL Baso # (Auto) 0.02 (0-0.2) K/uL Immature Gran # (Auto) 0.03 (0.01-0.20) K/uL VBG pH (7.36-7.41) VBG pCO2 (38-50) mmHg VBG pO2 mmHg VBG HCO3 mmol/L VBG O2 Saturation % VBG Base Excess mEq/L POC Sodium (135-144) mmol/L Sodium 142 (136-145) mmol/L POC Potassium (3.3-5.0) mmol/L Potassium 3.9 (3.5-5.1) mmol/L POC Chloride (101-112) mmol/L Chloride 106 (98-107) mmol/L Carbon Dioxide 28 (21-32) mmol/L POC Total CO2 (24-31) mmol/L Anion Gap 8 (3-11) POC Anion Gap (16-25) mmol/L POC BUN (7-18) mg/dl BUN 28 H (6-23) mg/dl Creatinine 1.44 H (0.6-1.4) mg/dl POC Creatinine (0.6-1.3) mg/dl Est Cr Clr Drug Dosing Not Reportable Est GFR ( Amer) 57.0 ml/min Est GFR (Non-Af Amer) 49.2 ml/min BUN/Creatinine Ratio 19.4 (10-20) Glucose 67 L (70-99(Fasting)) mg/dl POC Glucose 68 L* (70-99) mg/dl POC Glucose (other) (70-99) mg/dl Osmolality (280-300) mOsm/kg Calcium 9.6 (8.6-10.3) mg/dl POC Ioniz Calcium Clary (1.12-1.32) mmol/l Phosphorus 3.2 (2.5-4.9) mg/dl Magnesium 2.1 (1.7-2.4) mg/dl Total Bilirubin 0.6 (0.2-1.0) mg/dl AST 38 (13-39) U/L ALT 26 (7-52) U/L Alkaline Phosphatase 71 (34-104) U/L Total Protein 7.3 (6.0-8.3) gm/dl Albumin 4.5 (3.4-5.0) gm/dl Globulin 2.8 (2.5-4.0) gm/dl Albumin/Globulin Ratio 1.6 (0.9-2) TSH (0.300-4.500) uIu/ml Urine Color Urine Appearance (Clear) Urine pH (4.5-7.5) Ur Specific Shickley (1.000-1.030) Urine Protein (Negative) Urine Glucose (UA) (Negative) Urine Ketones (Negative) Urine Blood (Negative) Urine Nitrite (Negative) Urine Bilirubin (Negative) Urine Urobilinogen (Negative) Ur Leukocyte Esterase (Negative) Urine WBC (Auto) (0-5) /hpf Urine RBC (Auto) (0-4) /hpf U Hyaline Cast (Auto) (0-5) /lpf U Epithel Cells (Auto) (0-5) /lpf Urine Bacteria (Auto) (Negative) Urine Opiates Screen (Neg) Ur Methadone, Qual (Neg) Urine Barbiturates (Neg) Ur Phencyclidine (PCP) (Neg) U Amphetamin/Meth Scrn (Neg) MDMA (Ecstasy) Screen (Neg) U Benzodiazepines Scrn (Neg) Ur Cocaine Metabolite (Neg) U Marijuana (THC) Screen (Neg) Ethyl Alcohol mg/dL (<10.0) mg/dl SARS-CoV-2, RNA, NAAT (NEGATIVE) 01/14/23 01/14/23 01/14/23 Range/Units 08:12 08:12 08:14 WBC (4.8-10.8) K/ul RBC (4.70-6.10) M/uL Hgb (14.0-18.0) g/dl POC Hgb 14.3 (14.0-18.0) g/dl Hct (42.0-52.0) % POC Hct 42 (42-52) % MCV (80.0-100.0) fL MCH (25.0-34.0) pg MCHC (32.0-36.0) g/dL RDW Std Deviation (36.4-46.3) fL RDW Coeff of Ann (11.5-14.5) % Plt Count (130-400) K/uL MPV (9.4-12.4) fL Immature Gran % (Auto) % Neut % (Auto) % Lymph % (Auto) % Claiborne % (Auto) % Eos % (Auto) % Baso % (Auto) % Neut # (Auto) (1.40-6.50) K/uL Lymph # (Auto) (1.2-3.4) K/uL Claiborne # (Auto) (0.11-0.59) K/uL Eos # (Auto) (0-0.50) K/uL Baso # (Auto) (0-0.2) K/uL Immature Gran # (Auto) (0.01-0.20) K/uL VBG pH 7.39 (7.36-7.41) VBG pCO2 42 (38-50) mmHg VBG pO2 39 mmHg VBG HCO3 25 mmol/L VBG O2 Saturation 68.3 % VBG Base Excess 0.3 mEq/L POC Sodium 141 (135-144) mmol/L Sodium (136-145) mmol/L POC Potassium 3.9 (3.3-5.0) mmol/L Potassium (3.5-5.1) mmol/L POC Chloride 106 (101-112) mmol/L Chloride (98-107) mmol/L Carbon Dioxide (21-32) mmol/L POC Total CO2 25 (24-31) mmol/L Anion Gap (3-11) POC Anion Gap 15.0 L (16-25) mmol/L POC BUN 30 H (7-18) mg/dl BUN (6-23) mg/dl Creatinine (0.6-1.4) mg/dl POC Creatinine 1.5 H (0.6-1.3) mg/dl Est Cr Clr Drug Dosing Est GFR ( Amer) ml/min Est GFR (Non-Af Amer) ml/min BUN/Creatinine Ratio (10-20) Glucose (70-99(Fasting)) mg/dl POC Glucose (70-99) mg/dl POC Glucose (other) 67 L* (70-99) mg/dl Osmolality (280-300) mOsm/kg Calcium (8.6-10.3) mg/dl POC Ioniz Calcium Clary 1.18 (1.12-1.32) mmol/l Phosphorus (2.5-4.9) mg/dl Magnesium (1.7-2.4) mg/dl Total Bilirubin (0.2-1.0) mg/dl AST (13-39) U/L ALT (7-52) U/L Alkaline Phosphatase (34-104) U/L Total Protein (6.0-8.3) gm/dl Albumin (3.4-5.0) gm/dl Globulin (2.5-4.0) gm/dl Albumin/Globulin Ratio (0.9-2) TSH 1.138 (0.300-4.500) uIu/ml Urine Color Urine Appearance (Clear) Urine pH (4.5-7.5) Ur Specific Shickley (1.000-1.030) Urine Protein (Negative) Urine Glucose (UA) (Negative) Urine Ketones (Negative) Urine Blood (Negative) Urine Nitrite (Negative) Urine Bilirubin (Negative) Urine Urobilinogen (Negative) Ur Leukocyte Esterase (Negative) Urine WBC (Auto) (0-5) /hpf Urine RBC (Auto) (0-4) /hpf U Hyaline Cast (Auto) (0-5) /lpf U Epithel Cells (Auto) (0-5) /lpf Urine Bacteria (Auto) (Negative) Urine Opiates Screen (Neg) Ur Methadone, Qual (Neg) Urine Barbiturates (Neg) Ur Phencyclidine (PCP) (Neg) U Amphetamin/Meth Scrn (Neg) MDMA (Ecstasy) Screen (Neg) U Benzodiazepines Scrn (Neg) Ur Cocaine Metabolite (Neg) U Marijuana (THC) Screen (Neg) Ethyl Alcohol mg/dL (<10.0) mg/dl SARS-CoV-2, RNA, NAAT (NEGATIVE) 01/14/23 01/14/23 01/14/23 Range/Units 08:35 08:37 09:00 WBC (4.8-10.8) K/ul RBC (4.70-6.10) M/uL Hgb (14.0-18.0) g/dl POC Hgb (14.0-18.0) g/dl Hct (42.0-52.0) % POC Hct (42-52) % MCV (80.0-100.0) fL MCH (25.0-34.0) pg MCHC (32.0-36.0) g/dL RDW Std Deviation (36.4-46.3) fL RDW Coeff of Ann (11.5-14.5) % Plt Count (130-400) K/uL MPV (9.4-12.4) fL Immature Gran % (Auto) % Neut % (Auto) % Lymph % (Auto) % Claiborne % (Auto) % Eos % (Auto) % Baso % (Auto) % Neut # (Auto) (1.40-6.50) K/uL Lymph # (Auto) (1.2-3.4) K/uL Cla[place]orne # (Auto) (0.11-0.59) K/uL Eos # (Auto) (0-0.50) K/uL Baso # (Auto) (0-0.2) K/uL Immature Gran # (Auto) (0.01-0.20) K/uL VBG pH (7.36-7.41) VBG pCO2 (38-50) mmHg VBG pO2 mmHg VBG HCO3 mmol/L VBG O2 Saturation % VBG Base Excess mEq/L POC Sodium (135-144) mmol/L Sodium (136-145) mmol/L POC Potassium (3.3-5.0) mmol/L Potassium (3.5-5.1) mmol/L POC Chloride (101-112) mmol/L Chloride (98-107) mmol/L Carbon Dioxide (21-32) mmol/L POC Total CO2 (24-31) mmol/L Anion Gap (3-11) POC Anion Gap (16-25) mmol/L POC BUN (7-18) mg/dl BUN (6-23) mg/dl Creatinine (0.6-1.4) mg/dl POC Creatinine (0.6-1.3) mg/dl Est Cr Clr Drug Dosing Est GFR ( Amer) ml/min Est GFR (Non-Af Amer) ml/min BUN/Creatinine Ratio (10-20) Glucose (70-99(Fasting)) mg/dl POC Glucose 273 H (70-99) mg/dl POC Glucose (other) (70-99) mg/dl Osmolality (280-300) mOsm/kg Calcium (8.6-10.3) mg/dl POC Ioniz Calcium Clary (1.12-1.32) mmol/l Phosphorus (2.5-4.9) mg/dl Magnesium (1.7-2.4) mg/dl Total Bilirubin (0.2-1.0) mg/dl AST (13-39) U/L ALT (7-52) U/L Alkaline Phosphatase (34-104) U/L Total Protein (6.0-8.3) gm/dl Albumin (3.4-5.0) gm/dl Globulin (2.5-4.0) gm/dl Albumin/Globulin Ratio (0.9-2) TSH (0.300-4.500) uIu/ml Urine Color Urine Appearance (Clear) Urine pH (4.5-7.5) Ur Specific Shickley (1.000-1.030) Urine Protein (Negative) Urine Glucose (UA) (Negative) Urine Ketones (Negative) Urine Blood (Negative) Urine Nitrite (Negative) Urine Bilirubin (Negative) Urine Urobilinogen (Negative) Ur Leukocyte Esterase (Negative) Urine WBC (Auto) (0-5) /hpf Urine RBC (Auto) (0-4) /hpf U Hyaline Cast (Auto) (0-5) /lpf U Epithel Cells (Auto) (0-5) /lpf Urine Bacteria (Auto) (Negative) Urine Opiates Screen Neg (Neg) Ur Methadone, Qual Neg (Neg) Urine Barbiturates Neg (Neg) Ur Phencyclidine (PCP) Neg (Neg) U Amphetamin/Meth Scrn Neg (Neg) MDMA (Ecstasy) Screen Neg (Neg) U Benzodiazepines Scrn Neg (Neg) Ur Cocaine Metabolite Neg (Neg) U Marijuana (THC) Screen Neg (Neg) Ethyl Alcohol mg/dL (<10.0) mg/dl SARS-CoV-2, RNA, NAAT NEGATIVE (NEGATIVE) 01/14/23 01/14/23 01/14/23 Range/Units 09:00 09:28 09:37 WBC (4.8-10.8) K/ul RBC (4.70-6.10) M/uL Hgb (14.0-18.0) g/dl POC Hgb (14.0-18.0) g/dl Hct (42.0-52.0) % POC Hct (42-52) % MCV (80.0-100.0) fL MCH (25.0-34.0) pg MCHC (32.0-36.0) g/dL RDW Std Deviation (36.4-46.3) fL RDW Coeff of Ann (11.5-14.5) % Plt Count (130-400) K/uL MPV (9.4-12.4) fL Immature Gran % (Auto) % Neut % (Auto) % Lymph % (Auto) % Cla[place]orne % (Auto) % Eos % (Auto) % Baso % (Auto) % Neut # (Auto) (1.40-6.50) K/uL Lymph # (Auto) (1.2-3.4) K/uL Cla[place]orne # (Auto) (0.11-0.59) K/uL Eos # (Auto) (0-0.50) K/uL Baso # (Auto) (0-0.2) K/uL Immature Gran # (Auto) (0.01-0.20) K/uL VBG pH (7.36-7.41) VBG pCO2 (38-50) mmHg VBG pO2 mmHg VBG HCO3 mmol/L VBG O2 Saturation % VBG Base Excess mEq/L POC Sodium (135-144) mmol/L Sodium (136-145) mmol/L POC Potassium (3.3-5.0) mmol/L Potassium (3.5-5.1) mmol/L POC Chloride (101-112) mmol/L Chloride (98-107) mmol/L Carbon Dioxide (21-32) mmol/L POC Total CO2 (24-31) mmol/L Anion Gap (3-11) POC Anion Gap (16-25) mmol/L POC BUN (7-18) mg/dl BUN (6-23) mg/dl Creatinine (0.6-1.4) mg/dl POC Creatinine (0.6-1.3) mg/dl Est Cr Clr Drug Dosing Est GFR ( Amer) ml/min Est GFR (Non-Af Amer) ml/min BUN/Creatinine Ratio (10-20) Glucose (70-99(Fasting)) mg/dl POC Glucose 172 H (70-99) mg/dl POC Glucose (other) (70-99) mg/dl Osmolality (280-300) mOsm/kg Calcium (8.6-10.3) mg/dl POC Ioniz Calcium Clary (1.12-1.32) mmol/l Phosphorus (2.5-4.9) mg/dl Magnesium (1.7-2.4) mg/dl Total Bilirubin (0.2-1.0) mg/dl AST (13-39) U/L ALT (7-52) U/L Alkaline Phosphatase (34-104) U/L Total Protein (6.0-8.3) gm/dl Albumin (3.4-5.0) gm/dl Globulin (2.5-4.0) gm/dl Albumin/Globulin Ratio (0.9-2) TSH (0.300-4.500) uIu/ml Urine Color Yellow Urine Appearance Clear (Clear) Urine pH 5.5 (4.5-7.5) Ur Specific [place] 1.023 (1.000-1.030) Urine Protein 2+ H (Negative) Urine Glucose (UA) 3+ H (Negative) Urine Ketones Negative (Negative) Urine Blood 2+ H (Negative) Urine Nitrite Negative (Negative) Urine Bilirubin Negative (Negative) Urine Urobilinogen Negative (Negative) Ur Leukocyte Esterase Negative (Negative) Urine WBC (Auto) 0 (0-5) /hpf Urine RBC (Auto) 0-4 (0-4) /hpf U Hyaline Cast (Auto) 1-5 (0-5) /lpf U Epithel Cells (Auto) 0-5 (0-5) /lpf Urine Bacteria (Auto) Negative (Negative) Urine Opiates Screen (Neg) Ur Methadone, Qual (Neg) Urine Barbiturates (Neg) Ur Phencyclidine (PCP) (Neg) U Amphetamin/Meth Scrn (Neg) MDMA (Ecstasy) Screen (Neg) U Benzodiazepines Scrn (Neg) Ur Cocaine Metabolite (Neg) U Marijuana (THC) Screen (Neg) Ethyl Alcohol mg/dL < 10.0 (<10.0) mg/dl SARS-CoV-2, RNA, NAAT (NEGATIVE) 01/14/23 Range/Units 09:37 WBC (4.8-10.8) K/ul RBC (4.70-6.10) M/uL Hgb (14.0-18.0) g/dl POC Hgb (14.0-18.0) g/dl Hct (42.0-52.0) % POC Hct (42-52) % MCV (80.0-100.0) fL MCH (25.0-34.0) pg MCHC (32.0-36.0) g/dL RDW Std Deviation (36.4-46.3) fL RDW Coeff of Ann (11.5-14.5) % Plt Count (130-400) K/uL MPV (9.4-12.4) fL Immature Gran % (Auto) % Neut % (Auto) % Lymph % (Auto) % [place] % (Auto) % Eos % (Auto) % Baso % (Auto) % Neut # (Auto) (1.40-6.50) K/uL Lymph # (Auto) (1.2-3.4) K/uL [place] # (Auto) (0.11-0.59) K/uL Eos # (Auto) (0-0.50) K/uL Baso # (Auto) (0-0.2) K/uL Immature Gran # (Auto) (0.01-0.20) K/uL VBG pH (7.36-7.41) VBG pCO2 (38-50) mmHg VBG pO2 mmHg VBG HCO3 mmol/L VBG O2 Saturation % VBG Base Excess mEq/L POC Sodium (135-144) mmol/L Sodium (136-145) mmol/L POC Potassium (3.3-5.0) mmol/L Potassium (3.5-5.1) mmol/L POC Chloride (101-112) mmol/L Chloride (98-107) mmol/L Carbon Dioxide (21-32) mmol/L POC Total CO2 (24-31) mmol/L Anion Gap (3-11) POC Anion Gap (16-25) mmol/L POC BUN (7-18) mg/dl BUN (6-23) mg/dl Creatinine (0.6-1.4) mg/dl POC Creatinine (0.6-1.3) mg/dl Est Cr Clr Drug Dosing Est GFR ( Amer) ml/min Est GFR (Non-Af Amer) ml/min BUN/Creatinine Ratio (10-20) Glucose (70-99(Fasting)) mg/dl POC Glucose (70-99) mg/dl POC Glucose (other) (70-99) mg/dl Osmolality 312 H (280-300) mOsm/kg Calcium (8.6-10.3) mg/dl POC Ioniz Calcium Clary (1.12-1.32) mmol/l Phosphorus (2.5-4.9) mg/dl Magnesium (1.7-2.4) mg/dl Total Bilirubin (0.2-1.0) mg/dl AST (13-39) U/L ALT (7-52) U/L Alkaline Phosphatase (34-104) U/L Total Protein (6.0-8.3) gm/dl Albumin (3.4-5.0) gm/dl Globulin (2.5-4.0) gm/dl Albumin/Globulin Ratio (0.9-2) TSH (0.300-4.500) uIu/ml Urine Color Urine Appearance (Clear) Urine pH (4.5-7.5) Ur Specific [place] (1.000-1.030) Urine Protein (Negative) Urine Glucose (UA) (Negative) Urine Ketones (Negative) Urine Blood (Negative) Urine Nitrite (Negative) Urine Bilirubin (Negative) Urine Urobilinogen (Negative) Ur Leukocyte Esterase (Negative) Urine WBC (Auto) (0-5) /hpf Urine RBC (Auto) (0-4) /hpf U Hyaline Cast (Auto) (0-5) /lpf U Epithel Cells (Auto) (0-5) /lpf Urine Bacteria (Auto) (Negative) Urine Opiates Screen (Neg) Ur Methadone, Qual (Neg) Urine Barbiturates (Neg) Ur Phencyclidine (PCP) (Neg) U Amphetamin/Meth Scrn (Neg) MDMA (Ecstasy) Screen (Neg) U Benzodiazepines Scrn (Neg) Ur Cocaine Metabolite (Neg) U Marijuana (THC) Screen (Neg) Ethyl Alcohol mg/dL (<10.0) mg/dl SARS-CoV-2, RNA, NAAT (NEGATIVE) Administered Medications Heparin Sodium/Dextrose (Heparin Sodium/Dextrose) 25,000 units in 500 mls @ 22 mls/hr IV .[id number] [facility]; Protocol Stop: 02/13/23 13:44 Last Titration: 01/14/23 22:07 Dose: 0 units/hr, 0 mls/hr Documented By: RUDDY Co-signed By: SYL Titration: 01/14/23 18:54 Dose: 1,100 units/hr, 22 mls/hr Documented By: [id number] Co-signed By: RUDDY Admin: 01/14/23 14:48 Dose: 1,100 units/hr, 22 mls/hr Documented By: [id number] Co-signed By: SIVAN Insulin Aspart (Insulin Aspart Per Unit Charge) 0 units SC Q4 JAXON Stop: 02/13/23 11:59 Last Admin: 01/14/23 20:24 Dose: 1 units Documented By: RUDDY Co-signed By: SYL Admin: 01/14/23 16:38 Dose: 2 units Documented By: [id number] Co-signed By: LAURA Admin: 01/14/23 12:17 Dose: 2 units Documented By: [id number] Co-signed By: MARY Discontinued Medications Dextrose (Dextrose 50% 50 Ml Syringe) 100 ml IV NOW ONE Stop: 01/14/23 08:05 Last Admin: 01/14/23 08:13 Dose: 100 ml Documented By: ANGEL Dextrose (Dextrose 50% 50 Ml Syringe) Confirm Administered Dose 100 ml IV .STK- MED ONE Stop: 01/14/23 08:06 Last Admin: 01/14/23 08:13 Dose: Not Given Documented By: ANGEL Furosemide (Furosemide Inj 20 Mg/2 Ml Vial) 20 mg IV ONE ONE Stop: 01/14/23 10:34 Last Admin: 01/14/23 12:08 Dose: 20 mg Documented By: [id number] Furosemide (Furosemide Inj 20 Mg/2 Ml Vial) Confirm Administered Dose 20 mg IV .STK-MED ONE Stop: 01/14/23 12:03 Last Admin: 01/14/23 12:08 Dose: Not Given Documented By: [id number] Heparin Sodium/Dextrose (Heparin Iv Adult Wt-Based Standard With Bolus Protocol) 1 each IV Q15M JAXON Stop: 01/14/23 15:31 Last Admin: 01/14/23 15:02 Dose: 1 each Documented By: [id number] Admin: 01/14/23 15:02 Dose: Not Given Documented By: [id number] Sodium Chloride (Nss 1000ml) 1,000 mls @ 999 mls/hr IV .Q1H1M ONE Stop: 01/14/23 09:04 Last Infusion: 01/14/23 10:10 Dose: 0 mls/hr Documented By: Admin: 01/14/23 08:13 Dose: 999 mls/hr Documented By: ANGEL Propofol (Diprivan) 1,000 mg in 100 mls @ 7.893 mls/hr IV .[id number] JAXON; Protocol Stop: 01/17/23 08:59 Last Titration: 01/14/23 09:40 Dose: 0 mcg/kg/min, 0 mls/hr Documented By: Titration: 01/14/23 09:33 Dose: 40 mcg/kg/min, 15.8 mls/hr Documented By: Titration: 01/14/23 09:25 Dose: 35 mcg/kg/min, 13.8 mls/hr Documented By: Titration: 01/14/23 09:20 Dose: 30 mcg/kg/min, 11.8 mls/hr Documented By: Titration: 01/14/23 09:03 Dose: 25 mcg/kg/min, 9.9 mls/hr Documented By: Admin: 01/14/23 08:55 Dose: 20 mcg/kg/min, 7.9 mls/hr Documented By: ANGEL Co-signed By: NA Potassium Chloride/Dextrose/Sod Cl (D5w And 1/2nss + 20meq Kcl) 20 meq in 1,000 mls @ 100 mls/hr IV .Q10H JAXON; Protocol Stop: 02/13/23 11:44 Last Admin: 01/14/23 11:59 Dose: Not Given Documented By: [id number] Heparin Sodium (Porcine) 5,000 (units/ Syringe) 5 mls @ 10 mls/min IV NOW ONE Stop: 01/14/23 14:46 Last Admin: 01/14/23 14:48 Dose: 10 mls/min Documented By: [id number] Co-signed By: SIVAN Insulin Glargine (Lantus Per Unit Charge) 8 units SC NOW ONE Stop: 01/14/23 18:01 Last Admin: 01/14/23 18:30 Dose: 8 units Documented By: [id number] Co-signed By: MARY Ioversol (Optiray 320 500ml) 115 ml IV ONCE ONE Stop: 01/14/23 08:39 Last Admin: 01/14/23 08:38 Dose: 115 ml Documented By: DANIELLE Lorazepam (Lorazepam 2 Mg/1 Ml Vial) 1 mg IV NOW STA Stop: 01/14/23 08:13 Last Admin: 01/14/23 08:17 Dose: 1 mg Documented By: ANGEL Miscellaneous (Rapid Sequence Induction Bag) Confirm Administered Dose 1 each N/A .STK-MED ONE Stop: 01/14/23 08:41 Last Admin: 01/14/23 08:49 Dose: 1 each Documented By: STEPHEN Odom (Stat Iv Infusion Titration Per Protocol) 1 each N/A NOW STA; Protocol Stop: 01/14/23 08:54 Last Admin: 01/14/23 10:09 Dose: 1 each Documented By: ANGEL Odom (Icu Protocol For Hyperglycemia) 1 each N/A ACHS JAXON Stop: 01/16/23 11:44 Last Admin: 01/14/23 11:59 Dose: 1 each Documented By: [id number] Propofol (Propofol Iv Emulsion 10 Mg/Ml 100 Ml Vial) Confirm Administered Dose 1,000 mg IV .STK-MED ONE Stop: 01/14/23 08:53 Last Admin: 01/14/23 10:09 Dose: Not Given Documented By: ANGEL Propofol (Propofol Bolus From Bag) 20 mg IV Q5M PRN PRN Reason: Sedation Stop: 01/17/23 08:52 Last Admin: 01/14/23 09:39 Dose: 20 mg Documented By: ANGEL Co-signed By: YANNI Admin: 01/14/23 09:13 Dose: 20 mg Documented By: ANGEL Co-signed By: YANNI Admin: 01/14/23 09:06 Dose: 20 mg Documented By: ANGEL Co-signed By: YANNI Imaging Data Radiologist's Impression: Chest X-Ray 01/14/23 08:04 XR chest 1V portable HISTORY: weakness COMPARISON: Chest 11/30/2020. FINDINGS: No pneumothorax. No pleural effusions. The cardiac silhouette is normal in size. There are mitral anus calcifications and left-sided dual-chamber pacemaker. There are hilar hazy airspace opacities and interstitial thickening consistent with pulmonary edema. IMPRESSION: Omin-ik-uuypvieu pulmonary edema. ACT 112: Negative or not required by law. Electronically signed by: Jose Eduardo Diaz M.D. 01/14/2023 10:[address] 01/14/23 08:[address] DOSE: HISTORY: Altered mental status. Unresponsive. TECHNIQUE: Multiaxial CT images of the head were performed without the use of intravenous contrast. Automated exposure control was utilized for this study. A dose lowering technique was utilized adhering to the principles of ALARA. Comparison: Head CT 03/24/2018. Findings: Motion artifact resulting in suboptimal evaluation of the brain. There is complete opacification of the frontal sinuses, ethmoid air cells, and sphenoid sinuses. Trace right and moderate left maxillary sinus fluid collections are noted. The opacified sinuses and fluid levels are slightly hyperdense. This could represent inspissated secretions. Overall, this has p rogressed compared to the prior study. The mastoid air cells are clear. 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 The ventricles and sulci are within normal limits for age. There is no definite mass, hematoma, midline shift, acute infarct. Impression: 1. Motion artifact resulting in suboptimal evaluation of the brain. No definite acute intracranial abnormality. 2. Progressive sinus disease as described above. ACT 112: Negative or not required by law. Electronically signed by: Jose Eduardo Diaz M.D. 01/14/2023 8:57 AM Head CTA 01/14/23 08:13 HEAD & NECK CTA HISTORY: Altered mental status TECHNIQUE: Multiaxial CT images of the head were performed following the intravenous administration of contrast to evaluate the major cerebral vessels. Multiaxial CT images of the neck were also performed following the intravenous administration of contrast to evaluate the major cervical vessels. Maximum intensity projection images were also obtained. A dose lowering technique was utilized adhering to the principles of ALARA. COMPARISON: Noncontrast head CT 01/14/2023. FINDINGS: Motion artifact results in suboptimal evaluation of the distal cerebral arteries. There is no mass, hematoma, midline shift, or acute infarct. Visualized intracranial internal carotid arteries, distal vertebral arteries, and basilar artery are widely patent. There is no significant stenosis, occlusion, or aneurysm seen within the bilateral ACAs, MCAs, or glassine machine tender. The major dural venous sinuses are patent. Moderate calcified plaque within the bilateral carotid siphons. Extensive paranasal sinus disease again noted. Suboptimal evaluation due to motion artifact. The aortic arch and proximal great vessels are widely patent. Moderate calcified plaque within the bilateral carotid bifurcations. This results in approximately 50% stenosis at the takeoff of the right internal carotid artery. There appears a moderate to severe stenosis within the takeoff of the left internal carotid artery due to the calcified plaque. This is suboptimally assessed due to the motion artifact. The mid to distal bilateral internal carotid arteries appear patent. The bilateral common carotid arteries are patent. No evidence for a dissection. The bilateral vertebral arteries appear widely patent. No pneumothorax. Interlobular septal thickening with patchy groundglass densities posteriorly within the lung apices. This is consistent with pulmonary edema. A superimposed pneumonitis would be difficult to exclude but considered less likely. IMPRESSION: 1. Motion artifact resulting in suboptimal evaluation. 2. No definite stenosis, occlusion, or aneurysm within the [place]. 3. Probable moderate to severe stenosis within the takeoff of the left external carotid artery which is suboptimally assessed due to the motion artifact. This can be further evaluated with nonemergent carotid Doppler study. 4. Approximately 50% stenosis at the takeoff of the right internal carotid artery due to the calcified plaque. 5. The bilateral vertebral arteries appear patent. 6. Interlobular septal thickening with patchy groundglass densities posteriorly within the lung apices. This is consistent with pulmonary edema. A superimposed pneumonitis would be difficult to exclude but considered less likely. ACT 112: Negative or not required by law. Electronically signed by: Jose Eduardo Diaz M.D. 01/14/2023 9:07 AM Neck CTA 01/14/23 08:13 HEAD & NECK CTA HISTORY: Altered mental status TECHNIQUE: Multiaxial CT images of the head were performed following the intravenous administration of contrast to evaluate the major cerebral vessels. Multiaxial CT images of the neck were also performed following the intravenous administration of contrast to evaluate the major cervical vessels. Maximum intensity projection images were also obtained. A dose lowering technique was utilized adhering to the principles of ALARA. COMPARISON: Noncontrast head CT 01/14/2023. FINDINGS: Motion artifact results in suboptimal evaluation of the distal cerebral arteries. There is no mass, hematoma, midline shift, or acute infarct. Visualized intracranial internal carotid arteries, distal vertebral arteries, and basilar artery are widely patent. There is no significant stenosis, occlusion, or aneurysm seen within the bilateral ACAs, MCAs, or glassine machine tender. The major dural venous sinuses are patent. Moderate calcified plaque within the bilateral carotid siphons. Extensive paranasal sinus disease again noted. Suboptimal evaluation due to motion artifact. The aortic arch and proximal great vessels are widely patent. Moderate calcified plaque within the bilateral carotid bifurcations. This results in approximately 50% stenosis at the takeoff of the right internal carotid artery. There appears a moderate to severe sten osis within the takeoff of the left internal carotid artery due to the calcified plaque. This is suboptimally assessed due to the motion artifact. The mid to distal bilateral internal carotid arteries appear patent. The bilateral common carotid arteries are patent. No evidence for a dissection. The bilateral vertebral arteries appear widely patent. No pneumothorax. Interlobular septal thickening with patchy groundglass densities posteriorly within the lung apices. This is consistent with pulmonary edema. A superimposed pneumonitis would be difficult to exclude but considered less likely. IMPRESSION: 1. Motion artifact resulting in suboptimal evaluation. 2. No definite stenosis, occlusion, or aneurysm within the [place]. 3. Probable moderate to severe stenosis within the takeoff of the left external carotid artery which is suboptimally assessed due to the motion artifact. This can be further evaluated with nonemergent carotid Doppler study. 4. Approximately 50% stenosis at the takeoff of the right internal carotid artery due to the calcified plaque. 5. The bilateral vertebral arteries appear patent. 6. Interlobular septal thickening with patchy groundglass densities posteriorly within the lung apices. This is consistent with pulmonary edema. A superimposed pneumonitis would be difficult to exclude but considered less likely. ACT 112: Negative or not required by law. Electronically signed by: Jose Eduardo Diaz M.D. 01/14/2023 9:07 AM Discharge Plan Visit Data Chief Complaint: Hypoglycemia Stated Complaint: HYPOGLYCEMIA ED Provider: Rian Rodriguez Discharge Problem: Acute encephalopathy, Cardiac pacemaker, CKD (chronic kidney disease), stage III, Hypoglycemic event in diabetes Patient Disposition: Admitted As Inpatient Discharge Instructions Interventions: ED Discharge Assessment Last Done: 01/14/23 11:15
[2023-01-14 08:36] LABS: Basophils # (auto) 0.02 K/uL (0-0.2); Basophils % (auto) 0.2 %; Eosinophils # (auto) 0.03 K/uL (0-0.50); Eosinophils % (auto) 0.4 %; Hematocrit (blood only) 40.8 % (42.0-52.0); Hemoglobin 13.6 g/dl (14.0-18.0); Immature Granulocytes # (auto) 0.03 K/uL (0.01-0.20); Immature Granulocytes % (auto) 0.4 %; Lymphocytes # (auto) 0.58 K/uL (1.2-3.4); Lymphocytes % (auto) 6.9 %; Mean Corpuscular Hemoglobin 33.8 pg (25.0-34.0); Mean Corpuscular Hgb Conc 33.3 g/dL (32.0-36.0); Mean Corpuscular Volume 101.5 fL (80.0-100.0); Monocytes # (auto) 0.47 K/uL (0.11-0.59); Monocytes % (auto) 5.6 %; Neutrophils # (auto) 7.26 K/uL (1.40-6.50); Neutrophils % (auto) 86.5 %; Platelet Count 161 K/uL (130-400); RDW Coefficient of Variation 13.6 % (11.5-14.5); Red Blood Count 4.02 M/uL (4.70-6.10); White Blood Count 8.39 K/ul (4.8-10.8)
[2023-01-14] MEDS ORDERED: OPTIRAY 320 500ml IV ONE (08:38)
[2023-01-14] MEDS ORDERED: RAPID SEQUENCE INDUCTION BAG ONE (08:40)
[2023-01-14 08:42] LABS: Alanine Aminotransferase 26 U/L (7-52); Albumin Globulin Ratio 1.6 (0.9-2); Albumin Level 4.5 gm/dl (3.4-5.0); Alkaline Phosphatase 71 U/L (34-104); Anion Gap 8 (3-11); Aspartate Aminotransferase 38 U/L (13-39); BUN Creatinine Ratio 19.4 (10-20); Bilirubin,Total 0.6 mg/dl (0.2-1.0); Blood Urea Nitrogen 28 mg/dl (6-23); Calcium 9.6 mg/dl (8.6-10.3); Carbon Dioxide 28 mmol/L (21-32); Chloride 106 mmol/L (98-107); Est GFR (Non-African American) 49.2 ml/min; Globulin 2.8 gm/dl (2.5-4.0); Glucose 67 mg/dl (70-99(Fasting)); Magnesium 2.1 mg/dl (1.7-2.4); Phosphorus 3.2 mg/dl (2.5-4.9); Potassium 3.9 mmol/L (3.5-5.1); Sodium 142 mmol/L (136-145); Total Protein 7.3 gm/dl (6.0-8.3)
[2023-01-14] MEDS ORDERED: PROPOFOL IV EMULSION 10 MG/ML 100 ML VIAL IV ONE (08:52)
[2023-01-14] MEDS ORDERED: STAT IV Infusion **Titration per Protocol STA (08:53)
--- NOTE | 2023-01-14 08:59 | CT Scan Report ---
HEAD CT NONCONTRAST CT DOSE: HISTORY: Altered mental status. Unresponsive. TECHNIQUE: Multiaxial CT images of the head were performed without the use of intravenous contrast. A utomated exposure control was utilized for this study. A dose lowering technique was utilized adheri ng to the principles of ALARA. Comparison: Head CT 03/24/2018. Findings: Motion artifact resulting in suboptimal evaluation of the brain. There is complete opacific ation of the frontal sinuses, ethmoid air cells, and sphenoid sinuses. Trace right and moderate left maxillary sinus fluid collections are noted. The opacified sinuses and fluid levels are slightly hype rdense. This could represent inspissated secretions. Overall, this has progressed compared to the jordan or study. The mastoid air cells are clear. 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 The ventricles and sulci are within normal limits for age. There is no definite mass, hematoma, midline shift, acute infarct. Impression: 1. Motion artifact resulting in suboptimal evaluation of the brain. No definite acute intracranial ab normality. 2. Progressive sinus disease as described above. ACT 112: Negative or not required by law. Electronically signed by: Jose Eduardo Diaz M.D. 01/14/2023 8:57 AM
[2023-01-14] MEDS ORDERED: propofoL 1,000 MG/100 ML VIAL IV SCH (09:00)
[2023-01-14] MEDS: PROPOFOL BOLUS FROM BAG IV PRN ×3 (09:06→09:39)
--- NOTE | 2023-01-14 09:09 | CT Scan Report ---
HEAD & NECK CTA HISTORY: Altered mental status TECHNIQUE: Multiaxial CT images of the head were performed following the intravenous administration o f contrast to evaluate the major cerebral vessels. Multiaxial CT images of the neck were also perform ed following the intravenous administration of contrast to evaluate the major cervical vessels. Maxim um intensity projection images were also obtained. A dose lowering technique was utilized adhering to the principles of ALARA. COMPARISON: Noncontrast head CT 01/14/2023. FINDINGS: Motion artifact results in suboptimal evaluation of the distal cerebral arteries. There is no mass, h ematoma, midline shift, or acute infarct. Visualized intracranial internal carotid arteries, distal v ertebral arteries, and basilar artery are widely patent. There is no significant stenosis, occlusion, or aneurysm seen within the bilateral ACAs, MCAs, or visual basic developer. The major dural venous sinuses are patent . Moderate calcified plaque within the bilateral carotid siphons. Extensive paranasal sinus disease a gain noted. Suboptimal evaluation due to motion artifact. The aortic arch and proximal great vessels are widely p atent. Moderate calcified plaque within the bilateral carotid bifurcations. This results in approxim ately 50% stenosis at the takeoff of the right internal carotid artery. There appears a moderate to s evere stenosis within the takeoff of the left internal carotid artery due to the calcified plaque. Th is is suboptimally assessed due to the motion artifact. The mid to distal bilateral internal carotid arteries appear patent. The bilateral common carotid arteries are patent. No evidence for a dissectio n. The bilateral vertebral arteries appear widely patent. No pneumothorax. Interlobular septal thicke ran with patchy groundglass densities posteriorly within the lung apices. This is consistent with pu lmonary edema. A superimposed pneumonitis would be difficult to exclude but considered less likely. IMPRESSION: 1. Motion artifact resulting in suboptimal evaluation. 2. No definite stenosis, occlusion, or aneurysm within the [place]. 3. Probable moderate to severe stenosis within the takeoff of the left external carotid artery which is suboptimally assessed due to the motion artifact. This can be further evaluated with nonemergent c arotid Doppler study. 4. Approximately 50% stenosis at the takeoff of the right internal carotid artery due to the calcifie d plaque. 5. The bilateral vertebral arteries appear patent. 6. Interlobular septal thickening with patchy groundglass densities posteriorly within the lung apice s. This is consistent with pulmonary edema. A superimposed pneumonitis would be difficult to exclude but considered less likely. ACT 112: Negative or not required by law. Electronically signed by: Jose Eduardo Diaz M.D. 01/14/2023 9:07 AM
[2023-01-14 09:34] LABS: Appearance Urine Clear (Clear); Bacteria Urine Automated Negative (Negative); Bilirubin Urine Negative (Negative); Blood Urine 2+ (Negative); Color Urine Yellow; Epithelial Cell Urine Auto 0-5 /lpf (0-5); Glucose Urine UA 3+ (Negative); Ketones Urine Negative (Negative); Leukocyte Esterase Urine Negative (Negative); Nitrite Urine Negative (Negative); Protein Urine 2+ (Negative); RBC Urine Automated 0-4 /hpf (0-4); Specific Gravity Urine 1.023 (1.000-1.030); Urobilinogen Urine Negative (Negative); WBC Urine Automated 0 /hpf (0-5); pH Urine 5.5 (4.5-7.5)
--- NOTE | 2023-01-14 10:04 | Critical Care Consultation ---
Date of Consultation January 14, 2023 Assessment & Plan (1) Acute encephalopathy: Reason Critically Ill: 67-year-old male with acute encephalopathy and hypoglycemia PLAN: Neuro: Acute encephalopathy -Concern for a prolonged hypoglycemic episode -Cannot exclude subacute CVA: Unable to obtain MRI secondary to inability to cross reference pacemaker MRI compatibility -Cannot exclude small vessel/brainstem/posterior circulation CVA -Staff availability during normal working hours Monday (January 17) - Planned repeat CT in 24-48 hours -Osmolality essentially within normal limits at 312, ammonia pending at this time -Tox screen negative, alcohol level negative -Reports of possible alcohol consumption however what is documented is 1 glass of wine weekly per wellness visit notes, cannot exclude alcohol withdrawal however I feel this is rather unlikely -Carotid Doppler to evaluate CTA finding of probable moderate to severe stenosis of left external carotid artery and 50% stenosis right internal carotid artery -Scored 3 out of 5 of mini cognitive testing, suspect there is some baseline dysfunction - Consider EEG and Neurology consultation. Resp: At risk for aspiration -Monitor end-tidal CO2 as well as pulse oximetry I feel the risks of mechanical ventilation with associated sedation outweigh the benefits of an accurate clinical examination without sedation in this patient. I proceeded with extubating the patient. CV: Nonsustained ventricular tachycardia History pacemaker -Make: Medtronic, device model: [place] XT , MRI [id number], RA and RV lead: Medtronic model 5076 Fluids/Renal: Chronic kidney disease stage III -At baseline since January 2021 Maintenance fluid: D5 half NS with 20 mEq K at 100 MLS per hour ID: Afebrile, no leukocytosis, no obvious source of infection -Given patient was normal less than 12 hours prior I doubt this is related to occult infection GI/Nutrition: Cholesterol from February 2022 in adequate range N.p.o. until mental status improves Heme: Anemia -At baseline DVT prophylaxis: SCDs, can proceed with Lovenox DVT prophylaxis as a do not see a strong indication for lumbar puncture at this time Endocrine: ICU hyperglycemia protocol Type 1 diabetes -Outpatient glucose control with insulin pump -The pump was discontinued by emergency department staff -Maintain euglycemia, avoid hypoglycemia Musculoskeletal: Skin tears -Local wound care, wound nurse consult Vascular access: Peripheral IVs Code Status: Full code Disposition: ICU (2) Type 1 diabetes mellitus: (3) CKD (chronic kidney disease), stage III: (4) NSVT (nonsustained ventricular tachycardia): (5) Atrioventricular block, complete: (6) Cardiac pacemaker: (7) Hypoglycemia unawareness in type 1 diabetes mellitus: (8) Rheumatoid arthritis: (9) Skin tear of elbow without complication: (10) Skin tear of forearm without complication: (11) Skin tear of right lower leg without complication: Supervising Physician Co-Signing Physician Notes I have personally spent 70 minutes of critical care time in the direct management of this patient. This is a life/limb threatening event. This includes time spent evaluating patient, direct bedside care, chart review, placing orders, interpretation of diagnostic studies, discussion with consultants, patient, and/or family members regarding treatment decisions, as well as other required patient management activities. This time is exclusive of all separately billable procedures, and teaching time and separate from and in addition to any other critical care service time. History of Present Illness Reason for Consultation: Encephalopathy Requesting Physician: Dr. Rodriguez History of Present Illness History is obtained from providers, no family present at bedside and Patient intubated. Patient has a past medical history for type 1 diabetes on an insulin pump with continuous glucose monitoring via electronic devices, chronic kidney disease, history of nonsustained ventricular tachycardia, status post heart block with pacemaker placement, rheumatoid arthritis, hypertension, hypothyroidism. Patient had last been seen normal at approximately 930 last night. Family found the patient this morning with altered mental status. EMS was called and they discovered his blood sugar to be in the 20s. He was given glucose and had mild improvement in his responsiveness. In the ED he was determined to have a [place] Coma Scale of approximately 8. Patient would localize during IV placement but would not follow commands. Patient underwent CT scanning which was reported to show no acute intracranial abnormality to this indicate intracranial hemorrhage. ED documentation reports that the patient was handling his own secretions and was not hypoxic while in the emergency department. Patient was intubated for airway protection given his altered mental status. Working diagnosis conveyed was prolonged hypoglycemia. Allergies Allergy/AdvReac Type Severity Reaction Status Date / Time No Known Drug Allergies Allergy Verified 12/13/22 09:23 Home Medications Medication Instructions Recorded Confirmed Type cholecalciferol (vitamin D3) 25 1,000 unit PO QAM 06/24/19 12/13/22 History mcg (1,000 unit) capsule (Vitamin D3) ferrous sulfate 325 mg (65 mg 325 mg PO QAM 06/24/19 12/13/22 History iron) tablet (Iron (ferrous sulfate)) folic acid 1 mg tablet 1 mg PO QAM #90 tabs 09/04/19 12/13/22 Rx methotrexate sodium 2.5 mg tablet 10 mg PO WEEKLY #72 tabs 09/16/20 12/13/22 History blood-glucose meter,continuous #1 ea 02/23/21 12/13/22 History (Dexcom G6 Hot Roll Inspector) blood-glucose sensor (Dexcom G6 #3 ea 02/23/21 12/13/22 History Sensor device) blood-glucose transmitter (Dexcom #1 ea 02/23/21 12/13/22 History G6 Transmitter device) subcutaneous insulin pump (MiniMed #1 ea 02/23/21 12/13/22 History 670G Insulin Pump) blood sugar diagnostic (Contour #100 ea 08/24/21 12/13/22 Rx Next Test Strips) fluticasone propionate 44 2 puff inhalation BID #3 Inhalers 08/27/21 12/13/22 Rx mcg/actuation HFA aerosol inhaler (Flovent HFA) sildenafil 100 mg tablet See Rx Instructions PO DAILY PRN 09/07/21 12/13/22 Rx sexual activity #18 tabs Humalog U-100 Insulin 100 unit/mL 50 unit (0.5 mL) continuous 05/10/22 01/14/23 Rx subcutaneous solution (insulin subcutaneous infusion DAILY 90 lispro) days #5 vials levothyroxine 112 mcg tablet 112 mcg PO DAILY 90 days #90 tabs 12/21/22 01/14/23 Rx Patient History Medical History Chronic cough reason inhaler Diabetes mellitus type 1 Hypothyroidism Insulin pump in place Type 1 diabetes mellitus, uncontrolled Surgical History History of colonoscopy History of surgical procedure on eye proper using laser bilt eyes History of tooth extraction [facility] S/P insertion of insulin pump Family History Other Lung disease No family history of adverse response to anesthesia Denies family history of Ovarian cancer Prostate cancer Heart disease Breast cancer Colorectal cancer Social History Smoking Status: Unknown if ever smoked Second Hand Exposure: No; Do You Dip or Chew Tobacco: No; Hx Alcohol Use: Yes Alcohol type: beer, wine and hard liquor Hx Substance Use: No Preferred Language: Belarusian Communication Ability: Effective Hearing Ability: Normal Senior Structural Engineer Required: No Beliefs That Will Affect Care: None marital status: Current Living Situation: Spouse current occupational status: retired Feels Safe at Home: Yes Dental Care, Regularly: Yes Physical Activity Frequency: Daily Physical Activity Frequency Comment: spin bike, free weights, stretching Seatbelt Use: always Sunscreen Use: Yes Assistive Devices: Glasses Review of Systems Review of Systems: Unobtainable due to cognitive status and Unobtainable due to endotracheal tube Physical Exam Physical Exam: General: Sedated. nontoxic. Skin: Warm, dry, Head: Atraumatic Ears, nose, mouth and throat: airway obscured by endotracheal tube Cardiovascular: Normal peripheral perfusion Respiratory: Ventilator settings reviewed Gastrointestinal: Non distended Musculoskeletal: Multiple ecchymoses of the upper extremities, multiple skin tears of the bilateral upper extremities, few skin tears of the lower extremities Following extubation: Neuro: Glascow Coma Scale: Eyes: 2, Verbal 2, Motor 5, Total 9 Moves all 4 extremities, no evidence to suggest large MCA distribution infarct Results & Data Results & Data Vital Signs (Past 12 Hours) Vital Signs Temp Pulse Resp BP Pulse Ox O2 Del Method O2 Flow Rate 01/14/23 09:31 97 H 22 140/81 100 Mechanical Vent 01/14/23 09:20 112 H 20 181/71 H 96 Mechanical Vent 01/14/23 09:10 115 H 22 163/80 H 98 Mechanical Vent 01/14/23 09:08 97 H 20 156/80 H 98 Mechanical Vent 01/14/23 08:50 106 H 15 180/112 H 98 Mechanical Vent 01/14/23 08:40 105 H 21 94 Non-rebreather 15 01/14/23 08:50 99 H 20 100 01/14/23 08:36 109 H 21 176/100 H 95 Nasal Cannula 3 01/14/23 08:10 96 H 18 95 Nasal Cannula 3 01/14/23 08:03 94 H 18 96 Room Air 01/14/23 08:36 37 C 01/14/23 08:10 104 H 19 99 Room Air 01/14/23 08:04 97 H 01/14/23 08:01 93 H 20 190/84 H 99 Room Air FiO2 01/14/23 09:31 01/14/23 09:20 01/14/23 09:10 01/14/23 09:08 01/14/23 08:50 01/14/23 08:40 01/14/23 08:50 35 01/14/23 08:36 01/14/23 08:10 01/14/23 08:03 01/14/23 08:36 01/14/23 08:10 01/14/23 08:04 01/14/23 08:01 Critical Care Results & Data Vital Signs (Past 12 Hours) Vital Signs Temp Pulse Resp BP Pulse Ox O2 Del Method O2 Flow Rate 01/14/23 09:31 97 H 22 140/81 100 Mechanical Vent 01/14/23 09:20 112 H 20 181/71 H 96 Mechanical Vent 01/14/23 09:10 115 H 22 163/80 H 98 Mechanical Vent 01/14/23 09:08 97 H 20 156/80 H 98 Mechanical Vent 01/14/23 08:50 106 H 15 180/112 H 98 Mechanical Vent 01/14/23 08:40 105 H 21 94 Non-rebreather 15 01/14/23 08:50 99 H 20 100 01/14/23 08:36 109 H 21 176/100 H 95 Nasal Cannula 3 01/14/23 08:10 96 H 18 95 Nasal Cannula 3 01/14/23 08:03 94 H 18 96 Room Air 01/14/23 08:36 37 C 01/14/23 08:10 104 H 19 99 Room Air 01/14/23 08:04 97 H 01/14/23 08:01 93 H 20 190/84 H 99 Room Air FiO2 01/14/23 09:31 01/14/23 09:20 01/14/23 09:10 01/14/23 09:08 01/14/23 08:50 01/14/23 08:40 01/14/23 08:50 35 01/14/23 08:36 01/14/23 08:10 01/14/23 08:03 01/14/23 08:36 01/14/23 08:10 01/14/23 08:04 01/14/23 08:01 Lab & Micro Results (Past 24 Hours) RBC 4.02 M/uL (4.70-6.10) L 01/14/23 WBC 8.39 K/ul (4.8-10.8) 01/14/23 Hgb 13.6 g/dl (14.0-18.0) L 01/14/23 Hct 40.8 % (42.0-52.0) L 01/14/23 MCV 101.5 fL (80.0-100.0) H 01/14/23 MCH 33.8 pg (25.0-34.0) 01/14/23 MCHC 33.3 g/dL (32.0-36.0) 01/14/23 RDW Standard Deviation 51.0 fL (36.4-46.3) H 01/14/23 RDW Coefficient of Variation 13.6 % (11.5-14.5) 01/14/23 Plt Count 161 K/uL (130-400) 01/14/23 MPV 10.0 fL (9.4-12.4) 01/14/23 Neutrophils (%) (Auto) 86.5 % 01/14/23 Lymphocytes (%) (Auto) 6.9 % 01/14/23 Monocytes # (Auto) 0.47 K/uL (0.11-0.59) 01/14/23 Eosinophils # (Auto) 0.03 K/uL (0-0.50) 01/14/23 Immature Granulocyte % (Auto) 0.4 % 01/14/23 Neutrophils # (Auto) 7.26 K/uL (1.40-6.50) H 01/14/23 Lymphocytes # (Auto) 0.58 K/uL (1.2-3.4) L 01/14/23 Monocytes # (Auto) 0.47 K/uL (0.11-0.59) 01/14/23 Eosinophils # (Auto) 0.03 K/uL (0-0.50) 01/14/23 Basophils # (Auto) 0.02 K/uL (0-0.2) 01/14/23 Immature Granulocyte # (Auto) 0.03 K/uL (0.01-0.20) 3 Na 142 mmol/L (136-145) 01/14/23 K 3.9 mmol/L (3.5-5.1) 01/14/23 Cl 106 mmol/L (98-107) 01/14/23 CO2 28 mmol/L (21-32) 01/14/23 Anion Gap 8 (3-11) 01/14/23 BUN 28 mg/dl (6-23) H 01/14/23 Creatinine 1.44 mg/dl (0.6-1.4) H 01/14/23 Estimated GFR ( Amer) 57.0 ml/min 01/14/23 Estimated GFR (Non-Af Amer) 49.2 ml/min 01/14/23 BUN/Creatinine Ratio 19.4 (10-20) 01/14/23 Glu 67 mg/dl (70-99(Fasting)) L 01/14/23 Ca 9.6 mg/dl (8.6-10.3) 01/14/23 Phosphorus Level 3.2 mg/dl (2.5-4.9) 01/14/23 Total Bilirubin 0.6 mg/dl (0.2-1.0) 01/14/23 AST 38 U/L (13-39) 01/14/23 ALT 26 U/L (7-52) 01/14/23 Alkaline Phosphatase 71 U/L (34-104) 01/14/23 TP 7.3 gm/dl (6.0-8.3) 01/14/23 Albumin 4.5 gm/dl (3.4-5.0) 01/14/23 Globulin 2.8 gm/dl (2.5-4.0) 01/14/23 Albumin/Globulin Ratio 1.6 (0.9-2) 01/14/23 Mg 2.1 mg/dl (1.7-2.4) 01/14/23 08:12 Calcium Level 9.6 mg/dl (8.6-10.3) 01/14/23 08:12 Venous Blood pH 7.39 (7.36-7.41) 01/14/23 08:12 Venous Blood Partial Pressure CO2 42 mmHg (38-50) 01/14/23 08:1 2 Venous Blood Partial Pressure O2 39 mmHg 01/14/23 08:12 Venous Blood HCO3 25 mmol/L 01/14/23 08:12 Venous Blood Base Excess 0.3 mEq/L 01/14/23 08:12 Venous Blood Oxygen Saturation 68.3 % 01/14/23 08:12 Diagnostic Findings (Past 24 Hours) Head CT 01/14/23 08:[address] DOSE: HISTORY: Altered mental status. Unresponsive. TECHNIQUE: Multiaxial CT images of the head were performed without the use of intravenous contrast. Automated exposure control was utilized for this study. A dose lowering technique was utilized adhering to the principles of ALARA. Comparison: Head CT 03/24/2018. Findings: Motion artifact resulting in suboptimal evaluation of the brain. There is complete opacification of the frontal sinuses, ethmoid air cells, and sphenoi d sinuses. Trace right and moderate left maxillary sinus fluid collections are noted. The opacified sinuses and fluid levels are slightly hyperdense. This could represent inspissated secretions. Overall, this has progressed compared to the prior study. The mastoid air cells are clear. 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 The ventricles and sulci are within normal limits for age. There is no definite mass, hematoma, midline shift, acute infarct. Impression: 1. Motion artifact resulting in suboptimal evaluation of the brain. No definite acute intracranial abnormality. 2. Progressive sinus disease as described above. ACT 112: Negative or not required by law. Electronically signed by: Jose Eduardo Diaz M.D. 01/14/2023 8:57 AM Head CTA 01/14/23 08:13 HEAD & NECK CTA HISTORY: Altered mental status TECHNIQUE: Multiaxial CT images of the head were performed following the intravenous administration of contrast to evaluate the major cerebral vessels. Multiaxial CT images of the neck were also performed following the intravenous administration of contrast to evaluate the major cervical vessels. Maximum intensity projection images were also obtained. A dose lowering technique was utilized adhering to the principles of ALARA. COMPARISON: Noncontrast head CT 01/14/2023. FINDINGS: Motion artifact results in suboptimal evaluation of the distal cerebral arteries. There is no mass, hematoma, midline shift, or acute infarct. Visualized intracranial internal carotid arteries, distal vertebral arteries, and basilar artery are widely patent. There is no significant stenosis, occlusion, or aneurysm seen within the bilateral ACAs, MCAs, or drug discovery informatics specialist. The major dural venous sinuses are patent. Moderate calcified plaque within the bilateral carotid siphons. Extensive paranasal sinus disease again noted. Suboptimal evaluation due to motion artifact. The aortic arch and proximal great vessels are widely patent. Moderate calcified plaque within the bilateral carotid bifurcations. This results in approximately 50% stenosis at the takeoff of the right internal carotid artery. There appears a moderate to severe stenosis within the takeoff of the left internal carotid artery due to the ca lcified plaque. This is suboptimally assessed due to the motion artifact. The mid to distal bilateral internal carotid arteries appear patent. The bilateral common carotid arteries are patent. No evidence for a dissection. The bilateral vertebral arteries appear widely patent. No pneumothorax. Interlobular septal thickening with patchy groundglass densities posteriorly within the lung apices. This is consistent with pulmonary edema. A superimposed pneumonitis would be difficult to exclude but considered less likely. IMPRESSION: 1. Motion artifact resulting in suboptimal evaluation. 2. No definite stenosis, occlusion, or aneurysm within the [place]. 3. Probable moderate to severe stenosis within the takeoff of the left external carotid artery which is suboptimally assessed due to the motion artifact. This can be further evaluated with nonemergent carotid Doppler study. 4. Approximately 50% stenosis at the takeoff of the right internal carotid artery due to the calcified plaque. 5. The bilateral vertebral arteries appear patent. 6. Interlobular septal thickening with patchy groundglass densities posteriorly within the lung apices. This is consistent with pulmonary edema. A superimposed pneumonitis would be difficult to exclude but considered less likely. ACT 112: Negative or not required by law. Electronically signed by: Jose Eduardo Diaz M.D. 01/14/2023 9:07 AM Neck CTA 01/14/23 08:13 HEAD & NECK CTA HISTORY: Altered mental status TECHNIQUE: Multiaxial CT images of the head were performed following the intravenous administration of contrast to evaluate the major cerebral vessels. Multiaxial CT images of the neck were also performed following the intravenous administration of contrast to evaluate the major cervical vessels. Maximum intensity projection images were also obtained. A dose lowering technique was utilized adhering to the principles of ALARA. COMPARISON: Noncontrast head CT 01/14/2023. FINDINGS: Motion artifact results in suboptimal evaluation of the distal cerebral arteries. There is no mass, hematoma, midline shift, or acute infarct. Visualized intracranial internal carotid arteries, distal vertebral arteries, and basilar artery are widely patent. There is no significant stenosis, occlusion, or aneurysm seen within the bilateral ACAs, MCAs, or drug discovery informatics specialist. The major dural venous sinuses are patent. Moderate calcified plaque within the bilateral carotid siphons. Extensive paranasal sinus disease again noted. Suboptimal evaluation due to motion artifact. The aortic arch and proximal great vessels are widely patent. Moderate calcified plaque within the bilateral carotid bifurcations. This results in approximately 50% stenosis at the takeoff of the right internal carotid artery. There appears a moderate to severe stenosis within the takeoff of the left internal carotid artery due to the calcified plaque. This is suboptimally assessed due to the motion artifact. The mid to distal bilateral internal carotid arteries appear patent. The bilateral common carotid arteries are patent. No evidence for a dissection. The bilateral vertebral arteries appear widely patent. No pneumothorax. Interlobular septal thickening with patchy groundglass densities posteriorly within the lung apices. This is consistent with pulmonary edema. A superimposed pneumonitis would be difficult to exclude but considered less likely. IMPRESSION: 1. Motion artifact resulting in suboptimal evaluation. 2. No definite stenosis, occlusion, or aneurysm within the [place]. 3. Probable moderate to severe stenosis within the takeoff of the left external carotid artery which is suboptimally assessed due to the motion artifact. This can be further evaluated with nonemergent carotid Doppler study. 4. Approximately 50% stenosis at the takeoff of the right internal carotid artery due to the calcified plaque. 5. The bilateral vertebral arteries appear patent. 6. Interlobular septal thickening with patchy groundglass densities posteriorly within the lung apices. This is consistent with pulmonary edema. A superimposed pneumonitis would be difficult to exclude but considered less likely. ACT 112: Negative or not required by law. Electronically signed by: Jose Eduardo Diaz M.D. 01/14/2023 9:07 AM RT Ventilator Mngmt (Last Documented) Ventilator Ordered Settings Ventilator Support Mode Assist Control 01/14/23 08:50 Respiratory Rate 22 01/14/23 09:31 Ventilator Tidal Volume 450 01/14/23 08:50 Setting Minute Ventilation 8.3 01/14/23 08:50 Positive End Expiratory 5 01/14/23 08:50 Pressure Fraction of Inspired Oxygen 35 01/14/23 08:50 Ventilator - PT Measurements Respiratory Rate 22 Exhaled Tidal Volume 450 Minute Ventilation 8.3 Peak Inspiratory Airway 19 Pressure Respiratory Cycle Inspiratory: 1:3.2 Expiratory Ratio Inspiratory Phase Time 0.8 End-Tidal CO2 51 Dynamic Lung Compliance 32.14 Normal Static Lung Compliance 47.00 Coding Level of Care Code 67243 CRITICAL CARE 1ST 30-74M Diagnoses Acute encephalopathy G93.40 Type 1 diabetes mellitus E10.9 CKD (chronic kidney disease), stage III N18.30 NSVT (nonsustained ventricular tachycardia) I47.2 Atrioventricular block, complete I44.2 Cardiac pacemaker Z95.0 Hypoglycemia unawareness in type 1 diabetes mellitus E10.649 Rheumatoid arthritis M06.9 Skin tear of elbow without complication S51.019A Skin tear of forearm without complication S51.819A Skin tear of right lower leg without complication S81.811A
[2023-01-14 10:05] LABS: Amphetamines+Metham, Urine Neg (Neg); Barbiturates, Urine Neg (Neg); Benzodiazepine, Urine Neg (Neg); Cocaine, Urine Neg (Neg); MDMA (Ecstacy), Urine Neg (Neg); Methadone, Urine Neg (Neg); Opiate, Urine Neg (Neg); Phencyclidine, Urine Neg (Neg)
--- NOTE | 2023-01-14 10:29 | XRay Report ---
XR chest 1V portable HISTORY: weakness COMPARISON: Chest 11/30/2020. FINDINGS: No pneumothorax. No pleural effusions. The cardiac silhouette is normal in size. There are mitral anus calcifications and left-sided dual-chamber pacemaker. There are hilar hazy airspace opaci ties and interstitial thickening consistent with pulmonary edema. IMPRESSION: [id number] pulmonary edema. ACT 112: Negative or not required by law. Electronically signed by: Jose Eduardo Diaz M.D. 01/14/2023 10:28 AM
[2023-01-14] MEDS ORDERED: FUROSEMIDE INJ 20 MG/2 ML VIAL IV ONE ×2 (10:33→12:02)
--- NOTE | 2023-01-14 10:38 | History & Physical Report ---
Date of Service January 14, 2023 Assessment & Plan (1) Acute encephalopathy: Plan: Acute/unstable - high risk - Metabolic encephalopathy likely secondary to prolonged hypoglycemia +/- seizure - Admit to ICU - At this time, no obvious s/sx concerning for acute infection - For completeness will tack on blood cultures and procalcitonin - CXR appears more consistent with pulmonary edema as opposed to infection - Dose of IV Lasix 20mg x1 given - CBC reviewed, wbc count normal with a minimal left shift - Prolactin has been ordered given concern for seizure activity - Urine tox screen negative and LAYLA is negative - Would benefit from MRI, he does have a known PPM but device is MRI compatible according to Dr. Bauer's last note - Spoke with [employer]PO rep, he can come in to program the device to safe mode with an accompanying nurse to monitor rhythm - Ultimately, this will be based on if the patient can lay still for the test, if not will defer until he is able to follow commands OR obtain a repeat head CT in 48 hours - Carotid dopplers ordered (2) Type 1 diabetes mellitus: Plan: Chronic/unstable - Suspect he's having hypoglycemic episodes, perhaps more frequently than realized - Reviewed records, last a1c is 6.1% in Sep 2022 - Insulin pump removed - Continue frequent BSG checks q1h - Start on D51/2NSS at 100 ml/hr - NPO for now, will advance to diabetic diet when awake/alert, following commands, and is able to safely swallow (3) CKD (chronic kidney disease), stage III: Plan: Chronic/stable - Baseline creatinine ~1.5 - CMP reviewed, within baseline with a creatinine of 1.44 (4) Hypothyroidism: Plan: Chronic/stable - Continue Levothyroxine once awake/alert and able to safely swallow - For now will hold, could consider administering IV at 50% home dose if unable to resume within 72 hrs of admission (5) Hypertension: Plan: Chronic/stable - BP currently in ED 169/99 History noted but currently not taking any antihypertensives Will monitor BP and treat accordingly Plan Will place on Lovenox for DVT ppx. AM labs have been ordered. Case has been discussed in collaboration with Dr. Rolon, gi asst. Plan has also been d/w attending, Dr. Pizarro. Family has been updated at bedside, all questions answered. Further orders will be implemented as hospitalization warrants. History of Present Illness Chief Complaint: altered mental status Primary Care Provider: Alfred Gage MD Eduard Palacios is a 67 yo M with a pmhx of complete AV block with PPM insertion in 2018, CKD, hypothyroidism and DMT1 managed with insulin pump and electronic glucose monitoring system who presented to the ER this AM due to altered mental status. Patient is unable to provide a history and subsequently history is obtained from records, family, and ED provider. Patient was last known normal by his around 930pm yesterday evening. She awoke this morning and heard him making a grunting noise downstairs. When she went down to check on him, she noted that he had diffuse body shaking/tremoring in addition to kicking his legs. She immediately called EMS. Upon their arrival, pt was found to have a blood glucose of 28. He was given a dose of D10 and his BSG improved to 140s. However, he became combative and was not following commands. Upon arrival to the ER, he was medicated with a dose of IV Ativan 1mg x1 with minimal improvement. His BSG trended down in the ER to 69 and he was given two amps of D50 with improvement in his sugar to 270s. His preliminary blood work demonstrates a normal wbc count with a minimal left shift. He has no electrolyte abnormalities and is not acidotic. His blood gases were normal. He underwent a CT head which demonstrated some progressive sinus disease but otherwise no acute intracranial abnormality detected. Reportedly, he had a GCS of 8 and was felt to requiring intubation for airway protection. ET intubation was carried out by ER provider. At the time of my assessment, which occurred simultaneously with gi asst, pt was intubated and unable to follow commands or answer any questions. He was placed on propofol for sedation. His UA was not significant for infection, urine tox screen was normal, and his LAYLA was negative. CXR is pending. He was referred for admission to the hospitalist service for ongoing care. Family reports that his last diabetes visit was about 3 months ago with Eliecer Siegel PA-C. They do not believe that the patient has been forthright in terms of his eating habits. Family notes that he obsessed over carbohydrate consumption and has very little if any carbs. He also obsesses over his BS levels and will dose himself for BSG of 145 or in anticipation of what he might eat and then does not eat that amount. According to his last note, Eliecer recommending increasing his carb ratio, but it is unclear if the patient has been compliant with this. Allergies Allergy/AdvReac Type Severity Reaction Status Date / Time No Known Drug Allergies Allergy Verified 12/13/22 09:23 Home Medications Medication Instructions Recorded Confirmed Type cholecalciferol (vitamin D3) 25 0 unit PO QAM 06/24/19 01/14/23 History mcg (1,000 unit) capsule (Vitamin D3) ferrous sulfate 325 mg (65 mg 0 mg PO QAM 06/24/19 01/14/23 History iron) tablet (Iron (ferrous sulfate)) folic acid 1 mg tablet 1 mg PO QAM #90 tabs 09/04/19 01/14/23 Rx methotrexate sodium 2.5 mg tablet 10 mg PO WEEKLY #72 tabs 09/16/20 01/14/23 History blood-glucose meter,continuous #1 ea 02/23/21 12/13/22 History (Dexcom G6 Labels Molder) blood-glucose sensor (Dexcom G6 #3 ea 02/23/21 12/13/22 History Sensor device) blood-glucose transmitter (Dexcom #1 ea 02/23/21 12/13/22 History G6 Transmitter device) subcutaneous insulin pump (MiniMed #1 ea 02/23/21 12/13/22 History 670G Insulin Pump) blood sugar diagnostic (Contour #100 ea 08/24/21 12/13/22 Rx Next Test Strips) Humalog U-100 Insulin 100 unit/mL 50 unit (0.5 mL) continuous 05/10/22 01/14/23 Rx subcutaneous solution (insulin subcutaneous infusion DAILY 90 lispro) days #5 vials levothyroxine 112 mcg tablet 112 mcg PO DAILY 90 days #90 tabs 12/21/22 01/14/23 Rx fluticasone propionate 44 0 puff inhalation BID 01/14/23 01/14/23 History mcg/actuation HFA aerosol inhaler (Flovent HFA) sildenafil 100 mg tablet PO DAILY PRN sexual activity 01/14/23 01/14/23 History Past Med/Surg History Medical History Chronic cough reason inhaler Diabetes mellitus type 1 Hypothyroidism Insulin pump in place Type 1 diabetes mellitus, uncontrolled Surgical History History of colonoscopy History of surgical procedure on eye proper using laser bilt eyes History of tooth extraction Pacemaker 2017 @ [facility]--meditronic Dr. Bauer S/P insertion of insulin pump Family History Other Lung disease No family history of adverse response to anesthesia Denies family history of Ovarian cancer Prostate cancer Heart disease Breast cancer Colorectal cancer Social History Smoking Status: Never smoker Second Hand Exposure: No; Do You Dip or Chew Tobacco: No; Hx Alcohol Use: Yes Alcohol type: beer, wine and hard liquor Hx Substance Use: No Preferred Language: Tongan Communication Ability: Impaired Hearing Ability: Normal [employer]orer [employer] Required: No Beliefs That Will Affect Care: None marital status: Current Living Situation: Spouse current occupational status: retired Feels Safe at Home: Yes Safety Concerns: Feels Safe At This Time Dental Care, Regularly: Yes Physical Activity Frequency: Daily Physical Activity Frequency Comment: spin bike, free weights, stretching Seatbelt Use: always Sunscreen Use: Yes Assistive Devices: None Physical Exam Physical Exam: GENERAL: 67 yo well-developed but thin M. Restless and not following commands. LUNGS: Rales auscultated bilaterally, bibasilar diminished breath sounds CARDIOVASCULAR: Regular rate and rhythm. No M/G/R. ABDOMEN: Soft, non-tender and non-distended. Bowel sounds normoactive x 4 quad. EXTREMITIES: No edema. Non-tender. Peripheral pulses +2/4. NEUROLOGIC: Not following commands, not oriented. Does not open eyes. No obvious facial droop or focal neuro deficit. SKIN: Multiple skin tears and bruising over bilateral upper extremities. Abrasions noted on b/l shins. Results & Data Results & Data Vital Signs (Past 12 Hours) Vital Signs Temp Pulse Resp BP Pulse Ox O2 Del Method O2 Flow Rate 01/14/23 10:20 100 H 20 169/99 H 100 Nasal Cannula 4 01/14/23 10:10 106 H 17 170/102 H 97 Nasal Cannula 4 01/14/23 10:00 103 H 20 167/96 H 99 Nasal Cannula 4 01/14/23 09:52 97 H 22 164/62 H 100 Nasal Cannula 4 01/14/23 09:31 97 H 22 140/81 100 Mechanical Vent 01/14/23 09:20 112 H 20 181/71 H 96 Mechanical Vent 01/14/23 09:10 115 H 22 163/80 H 98 Mechanical Vent 01/14/23 09:08 97 H 20 156/80 H 98 Mechanical Vent 01/14/23 08:50 106 H 15 180/112 H 98 Mechanical Vent 01/14/23 08:40 105 H 21 94 Non-rebreather 15 01/14/23 08:50 99 H 20 100 01/14/23 08:36 109 H 21 176/100 H 95 Nasal Cannula 3 01/14/23 08:10 96 H 18 95 Nasal Cannula 3 01/14/23 08:03 94 H 18 96 Room Air 01/14/23 08:36 37 C 01/14/23 08:10 104 H 19 99 Room Air 01/14/23 08:04 97 H 01/14/23 08:01 93 H 20 190/84 H 99 Room Air FiO2 01/14/23 10:20 01/14/23 10:10 01/14/23 10:00 01/14/23 09:52 01/14/23 09:31 01/14/23 09:20 01/14/23 09:10 01/14/23 09:08 01/14/23 08:50 01/14/23 08:40 01/14/23 08:50 35 01/14/23 08:36 01/14/23 08:10 01/14/23 08:03 01/14/23 08:36 01/14/23 08:10 01/14/23 08:04 01/14/23 08:01 Laboratory Results 01/14/23 08:12 01/14/23 08:12 Diagnostic Findings Chest X-Ray 01/14/23 08:04 XR chest 1V portable HISTORY: weakness COMPARISON: Chest 11/30/2020. FINDINGS: No pneumothorax. No pleural effusions. The cardiac silhouette is normal in size. There are mitral anus calcifications and left-sided dual-chamber pacemaker. There are hilar hazy airspace opacities and interstitial thickening consistent with pulmonary edema. IMPRESSION: [id number] pulmonary edema. ACT 112: Negative or not required by law. Electronically signed by: Jose Eduardo Diaz M.D. 01/14/2023 10:[address] 01/14/23 08:[address] DOSE: HISTORY: Altered mental status. Unresponsive. TECHNIQUE: Multiaxial CT images of the head were performed without the use of intravenous contrast. Automated exposure control was utilized for this study. A dose lowering technique was utilized adhering to the principles of ALARA. Comparison: Head CT 03/24/2018. Findings: Motion artifact resulting in suboptimal evaluation of the brain. There is complete opacification of the frontal sinuses, ethmoid air cells, and sphenoid sinuses. Trace right and moderate left maxillary sinus fluid collections are noted. The opacified sinuses and fluid levels are slightly hyperdense. This could represent inspissated secretions. Overall, this has progressed compared to the prior study. The mastoid air cells are clear. 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 The ventricles and sulci are within normal limits for age. There is no definite mass, hematoma, midline shift, acute infarct. Impression: 1. Motion artifact resulting in suboptimal evaluation of the brain. No definite acute intracranial abnormality. 2. Progressive sinus disease as described above. ACT 112: Negative or not required by law. Electronically signed by: Jose Eduardo Diaz M.D. 01/14/2023 8:57 AM Head CTA 01/14/23 08:13 HEAD & NECK CTA HISTORY: Altered mental status TECHNIQUE: Multiaxial CT images of the head were performed following the intravenous administration of contrast to evaluate the major cerebral vessels. Multiaxial CT images of the neck were also performed following the intravenous administration of contrast to evaluate the major cervical vessels. Maximum intensity projection images were also obtained. A dose lowering technique was utilized adhering to the principles of ALARA. COMPARISON: Noncontrast head CT 01/14/2023. FINDINGS: Motion artifact results in suboptimal evaluation of the distal cerebral arteries. There is no mass, hematoma, midline shift, or acute infarct. Visualized intracranial internal carotid arteries, distal vertebral arteries, and basilar artery are widely patent. There is no significant stenosis, occlusion, or aneurysm seen within the bilateral ACAs, MCAs, or safety professional. The major dural venous sinuses are patent. Moderate calcified plaque within the bilateral carotid siphons. Extensive paranasal sinus disease again noted. Suboptimal evaluation due to motion artifact. The aortic arch and proximal great vessels are widely patent. Moderate calcified plaque within the bilateral carotid bifurcations. This results in approximately 50% stenosis at the takeoff of the right internal carotid artery. There appears a moderate to severe stenosis within the takeoff of the left internal carotid artery due to the calcified plaque. This is suboptimally assessed due to the motion artifact. The mid to distal bilateral internal carotid arteries appear patent. The bilateral common carotid arteries are patent. No evidence for a dissection. The bilateral vertebral arteries appear widely patent. No pneumothorax. Interlobular septal thickening with patchy groundglass densities posteriorly within the lung apices. This is consistent with pulmonary edema. A superimposed pneumonitis would be difficult to exclude but considered less likely. IMPRESSION: 1. Motion artifact resulting in suboptimal evaluation. 2. No definite stenosis, occlusion, or aneurysm within the [place]. 3. Probable moderate to severe stenosis within the takeoff of the left external carotid artery which is suboptimally assessed due to the motion artifact. This can be further evaluated with nonemergent carotid Doppler study. 4. Approximately 50% stenosis at the takeoff of the right internal carotid artery due to the calcified plaque. 5. The bilateral vertebral arteries appear patent. 6. Interlobular septal thickening with patchy groundglass densities posteriorly within the lung apices. This is consistent with pulmonary edema. A superimposed pneumonitis would be difficult to exclude but considered less likely. ACT 112: Negative or not required by law. Electronically signed by: Jose Eduardo Diaz M.D. 01/14/2023 9:07 AM Neck CTA 01/14/23 08:13 HEAD & NECK CTA HISTORY: Altered mental status TECHNIQUE: Multiaxial CT images of the head were performed following the intravenous administration of contrast to evaluate the major cerebral vessels. Multiaxial CT images of the neck were also performed following the intravenous administration of contrast to evaluate the major cervical vessels. Maximum intensity projection images were also obtained. A dose lowering technique was utilized adhering to the principles of ALARA. COMPARISON: Noncontrast head CT 01/14/2023. FINDINGS: Motion artifact results in suboptimal evaluation of the distal cerebral arteries. There is no mass, hematoma, midline shift, or acute infarct. Vis ualized intracranial internal carotid arteries, distal vertebral arteries, and basilar artery are widely patent. There is no significant stenosis, occlusion, or aneurysm seen within the bilateral ACAs, MCAs, or safety professional. The major dural venous sinuses are patent. Moderate calcified plaque within the bilateral carotid siphons. Extensive paranasal sinus disease again noted. Suboptimal evaluation due to motion artifact. The aortic arch and proximal great vessels are widely patent. Moderate calcified plaque within the bilateral carotid bifurcations. This results in approximately 50% stenosis at the takeoff of the right internal carotid artery. There appears a moderate to severe stenosis within the takeoff of the left internal carotid artery due to the calcified plaque. This is suboptimally assessed due to the motion artifact. The mid to distal bilateral internal carotid arteries appear patent. The bilateral common carotid arteries are patent. No evidence for a dissection. The bilateral vertebral arteries appear widely patent. No pneumothorax. Interlobular septal thickening with patchy groundglass densities posteriorly within the lung apices. This is consistent with pulmonary edema. A superimposed pneumonitis would be difficult to exclude but considered less likely. IMPRESSION: 1. Motion artifact resulting in suboptimal evaluation. 2. No definite stenosis, occlusion, or aneurysm within the [place]. 3. Probable moderate to severe stenosis within the takeoff of the left external carotid artery which is suboptimally assessed due to the motion artifact. This can be further evaluated with nonemergent carotid Doppler study. 4. Approximately 50% stenosis at the takeoff of the right internal carotid artery due to the calcified plaque. 5. The bilateral vertebral arteries appear patent. 6. Interlobular septal thickening with patchy groundglass densities posteriorly within the lung apices. This is consistent with pulmonary edema. A superimposed pneumonitis would be difficult to exclude but considered less likely. ACT 112: Negative or not required by law. Electronically signed by: Jose Eduardo Diaz M.D. 01/14/2023 9:07 AM ECG Additional Comments: EKG is paced Supervising Physician Co-Signing Physician Notes I personally saw and examined the patient. I verified all davis points and agree with Marnie Edwards PA-C with the following exceptions and/or additions: 67 year old male presents to the ER with altered mental state and hypoglycemia (reportedly for 6 hours as noted by his dexacom). Unable to get any history from patient and family not present when seen. O/E pupils equal and reactive to light, HS RRR, no murmurs, Chest CTAB, Abdo SNT, no facial droop, unable to follow commands, alert to voice A/P Acute metabolic encephalitis / hypoglycemia - suspect encephalopathy due to prolonged hypoglycemia. Hypoglycemia secondary to reduced carbs. now resolved off insulin and after dextrose given. Blood cultures taken to work up alternative etiology. If encephalopathy still present tomorrow recommend further workup however reportedly no symptoms yesterday therefore low suspicion of alter levelock etiology. 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
--- NOTE | 2023-01-14 10:46 | Electrocardiogram Report ---
Test Reason : Blood Pressure : / mmHG Vent. Rate : 095 BPM Atrial Rate : 095 BPM P-R Int : 184 ms QRS Dur : 164 ms QT Int : 426 ms P-R-T Axes : 064 -56 085 degrees QTc Int : 535 ms Atrial-sensed ventricular-paced rhythm Abnormal ECG When compared with ECG of 30-NOV-2020 10:50, Vent. rate has increased BY 6 BPM Confirmed by Ben Garcia ([id number]) on 01/14/2023 10:46:29 AM Referred By: REFERRED SELF Confirmed By:Ben Garcia
[2023-01-14] MEDS ORDERED: D5W AND 1/2NSS + 20MEQ KCL 20 MEQ/1,000 ML BAG IV SCH (11:45)
[2023-01-14] MEDS ORDERED: ICU Protocol for HYPERglycemia SCH (11:45)
[2023-01-14] MEDS ORDERED: CARBOHYDRATES FOR HYPOGLYCEMIA PO PRN (11:53)
[2023-01-14] MEDS ORDERED: GLUCOSE 40% GEL 15 GM TUBE PO PRN (11:53)
[2023-01-14] MEDS ORDERED: GLUCOSE 10 TAB/TUBE PO PRN (11:53)
[2023-01-14] MEDS ORDERED: GLUCAGON FOR INJ 1 MG VIAL SQ PRN (11:53)
[2023-01-14] MEDS ORDERED: DEXTROSE 50% 50 ML SYRINGE IV PRN (11:53)
[2023-01-14] MEDS: INSULIN ASPART PER UNIT CHARGE SC SCH ×4 (12:17→23:31)
[2023-01-14 13:20] LABS: BUN Creatinine Ratio 18.5 (10-20); Calcium 9.3 mg/dl (8.6-10.3); Est GFR (African American) 61.6 ml/min; Est GFR (Non-African American) 53.2 ml/min; Potassium 4.2 mmol/L (3.5-5.1)
[2023-01-14 13:30] LABS: Troponin I High Sensitivity 201.8 pg/ml (0-20)
[2023-01-14] MEDS ORDERED: HEPARIN IV BOLUS 5,000 UNITS in SYRINGE 0 ML IV ONE (14:45)
[2023-01-14] MEDS: HEPARIN SODIUM/DEXTROSE 25,000 UNITS/500 ML BAG IV SCH (14:48)
[2023-01-14] MEDS ORDERED: ETOMIDATE 2 MG/ML 20 ML VIAL IV ONE (14:49)
[2023-01-14] MEDS ORDERED: SUCCINYLCHOLINE CHLORIDE 20 MG/ML 10 ML VIAL IV ONE (14:49)
[2023-01-14 14:55] LABS: Partial Thromboplastin Ratio 0.9; Partial Thromboplastin Time 24.8 Seconds (21.0-31.0); Prothrombin Time 11.3 Seconds (9.0-12.0)
[2023-01-14] MEDS: Heparin IV Adult Wt-Based Standard WITH Bolus Protocol IV SCH ×2 (15:02)
--- NOTE | 2023-01-14 17:26 | Ultrasound Report ---
BILATERAL CAROTID DOPPLER STUDY HISTORY: Abnormal CTA. Evaluate for carotid stenosis. COMPARISON: CTA neck 01/14/2023. TECHNIQUE: Real-time, grayscale, and color Doppler sonography of the carotid arteries was performed. Imaging reviewed in the transverse and longitudinal planes. All measurements were calculated based on NASCET criteria. FINDINGS: Only the right vertebral artery was able to be visualized on this examination and appears to demonstr ate antegrade flow. Of note, the left vertebral artery was patent on the same day neck CTA. Mild right and moderate left proximal carotid artery calcified plaque. The peak systolic velocity within the right ICA is 86 cm/s.. The right systolic ratio is 1.1. The peak systolic velocity within the left ICA is 170 cm/s proximally. The left carotid artery was no t well visualized due to the patient's condition, therefore, the left systolic ratio was unable to be obtained. IMPRESSION: 1. Suboptimal study due to the patient's condition. 2. Likely 50-79% stenosis within the proximal left internal carotid artery as described above. This c an be reassessed once the patient's condition has improved. 3. No hemodynamically significant stenosis within the right carotid arteries. ACT 112: Negative or not required by law. Electronically signed by: Jose Eduardo Diaz M.D. 01/14/2023 5:24 PM
[2023-01-14] MEDS ORDERED: PHARMACY GLYCEMIC MGMT CONSULT PRN (17:45)
[2023-01-14] MEDS ORDERED: LANTUS PER UNIT CHARGE SC ONE (18:00)
[2023-01-14] MEDS ORDERED: ACETAMINOPHEN 1,000 MG/100 ML VIAL IV PRN (21:17)
[2023-01-14 22:01] LABS: Partial Thromboplastin Ratio 3.8
[2023-01-14 22:09] LABS: Partial Thromboplastin Time 107.2 Seconds (21.0-31.0)
[2023-01-14] MEDS ORDERED: D5W AND NSS 1,000 ML IV SCH (23:45)
[2023-01-15] MEDS: INSULIN ASPART PER UNIT CHARGE SC SCH ×6 (04:29→23:52)
[2023-01-15 05:52] LABS: Magnesium 1.9 mg/dl (1.7-2.4)
[2023-01-15 05:57] LABS: Basophils # (auto) 0.04 K/uL (0-0.2); Basophils % (auto) 0.7 %; Eosinophils # (auto) 0.14 K/uL (0-0.50); Eosinophils % (auto) 2.4 %; Hematocrit (blood only) 39.7 % (42.0-52.0); Hemoglobin 13.4 g/dl (14.0-18.0); Immature Granulocytes # (auto) 0.02 K/uL (0.01-0.20); Immature Granulocytes % (auto) 0.3 %; Lymphocytes # (auto) 0.97 K/uL (1.2-3.4); Lymphocytes % (auto) 16.9 %; Mean Corpuscular Hemoglobin 33.8 pg (25.0-34.0); Mean Corpuscular Hgb Conc 33.8 g/dL (32.0-36.0); Mean Corpuscular Volume 100.3 fL (80.0-100.0); Mean Platelet Volume 10.4 fL (9.4-12.4); Monocytes # (auto) 0.44 K/uL (0.11-0.59); Monocytes % (auto) 7.7 %; Neutrophils # (auto) 4.14 K/uL (1.40-6.50); Platelet Count 127 K/uL (130-400); RDW Coefficient of Variation 13.5 % (11.5-14.5); RDW Standard Deviation 49.4 fL (36.4-46.3); Red Blood Count 3.96 M/uL (4.70-6.10); White Blood Count 5.75 K/ul (4.8-10.8)
[2023-01-15 06:07] LABS: Troponin I High Sensitivity 140.8 pg/ml (0-20)
[2023-01-15 06:19] LABS: INR 1.1 (0.9-1.1); Partial Thromboplastin Ratio 2.2; Prothrombin Time 11.8 Seconds (9.0-12.0)
[2023-01-15 06:45] LABS: Partial Thromboplastin Time 60.9 Seconds (21.0-31.0)
[2023-01-15 07:45] LABS: Est GFR (African American) 58.5 ml/min; Est GFR (Non-African American) 50.5 ml/min
--- NOTE | 2023-01-15 07:45 | Hospitalist Progress Note ---
Date of Service January 15, 2023 Assessment & Plan (1) Acute encephalopathy: Plan: Acute/unstable - high risk - Metabolic encephalopathy likely secondary to prolonged hypoglycemia +/- seizure - Neurology consultation feels this is encephalopathy from prolonged hypoglycemia with mild cortical injury but feels that the patient has good prognosis but may take weeks to improve back to baseline recommending supportive care no additional adjunctive testing recommended at this time - no obvious s/sx concerning for acute infection - CXR with pulmonary edema - Dose of IV Lasix 20mg x1 given - Prolactin not significantly elevated - Urine tox screen negative and LAYLA is negative -Repeat CT head unrevealing for acute hemorrhage sinus disease seen Carotid Dopplers showed a 50 to 79% stenosis of the LICA (2) Type 1 diabetes mellitus: Plan: Chronic/unstable - Suspect he's having hypoglycemic episodes, perhaps more frequently than realized - Reviewed records, last a1c is 6.1% in Sep 2022 - Insulin pump removed - -D5 discontinued pharmacy glycemic consult enacted - NPO until patient is awake and appropriate for oral intake (3) CKD (chronic kidney disease), stage III: Plan: Chronic/stable - Baseline creatinine ~1.5 - (4) Hypothyroidism: Plan: Chronic/stable - Continue Levothyroxine once awake/alert and able to safely swallow - For now will hold, could consider administering IV at 50% home dose if unable to resume within 72 hrs of admission (5) Hypertension: Plan: Chronic/stable - BP currently in ED 169/99 History noted but currently not taking any antihypertensives Will monitor BP and treat accordingly Plan Will place on Lovenox for DVT ppx. Admission and Anticipated Discharge Date Admission Date: January 14, 2023 Subjective Early in the day the patient did open his eyes and answer yes or no to questions although not always with correct appropriate responses. However later today became agitated trying to sit up wildly moving about delirious requiring chemical sedation to avoid injury. To this end heparin drip which was initiated for possibility of NSTEMI due to elevated troponin was discontinued. Appreciate neurology input however required sedation to prevent injury Physical Exam Physical Exam: Earlier was awake and did follow some commands respond to questions although not always appropriately Patient was delirious and difficult to redirect Cardiac exam appeared to be regular he does have a history of pacemaker placement Lungs are clear Neurologically he has no focal deficits and can spontaneously move extremities although not to command Results & Data Results & Data Vital Signs (Past 12 Hours) Vital Signs Temp Pulse Resp BP Pulse Ox O2 Del Method 01/15/23 06:30 98.8 F 70 15 99 01/15/23 06:30 137/65 01/15/23 06:15 98.8 F 75 16 98 01/15/23 06:00 99.0 F 68 16 98 01/15/23 06:00 126/63 01/15/23 05:45 99.0 F 69 28 H 98 01/15/23 05:30 98.8 F 75 13 98 01/15/23 05:30 142/77 H 01/15/23 05:15 99.0 F 79 15 98 01/15/23 05:00 99.0 F 71 16 98 01/15/23 05:00 131/66 01/15/23 04:45 99.0 F 81 16 97 01/15/23 04:31 99.0 F 84 17 99 01/15/23 04:31 141/58 H 01/15/23 04:30 99.0 F 72 16 98 01/15/23 04:15 98.8 F 122 H 34 H 98 01/15/23 04:10 90 16 100 01/15/23 04:00 110 H 21 97 01/15/23 04:00 138/77 01/15/23 03:50 80 20 99 01/15/23 03:40 74 18 98 01/15/23 03:31 156/61 H 01/15/23 03:31 86 19 98 01/15/23 03:30 102 H 21 97 01/15/23 03:20 71 18 97 01/15/23 03:10 74 16 97 01/15/23 03:00 82 18 95 01/15/23 03:00 148/61 H 01/15/23 02:50 85 20 97 01/15/23 02:40 79 15 97 01/15/23 02:30 81 17 98 01/15/23 02:30 158/72 H 01/15/23 02:20 78 19 99 01/15/23 02:10 72 18 97 01/15/23 02:00 77 16 97 01/15/23 02:00 143/68 H 01/15/23 01:50 78 16 98 01/15/23 01:40 75 16 98 01/15/23 01:30 78 17 98 01/15/23 01:30 127/53 L 01/15/23 01:20 77 18 98 01/15/23 01:10 107 H 16 98 01/15/23 01:00 99.1 F 81 25 H 96 01/15/23 01:00 152/65 H 01/15/23 00:50 99.3 F 84 17 98 01/15/23 00:40 99.5 F 81 17 98 01/15/23 00:30 99.3 F 76 19 97 01/15/23 00:30 126/63 01/15/23 00:20 99.5 F 80 17 97 01/15/23 00:10 99.5 F 97 H 20 98 01/15/23 00:00 99.5 F 84 22 99 01/14/23 23:50 99.5 F 79 22 97 01/14/23 23:44 99.5 F 85 28 H 97 01/14/23 23:44 153/65 H 01/14/23 23:40 99.7 F H 80 19 97 01/14/23 23:30 99.7 F H 95 H 27 H 100 01/14/23 23:20 99.7 F H 92 H 22 97 01/14/23 23:10 99.9 F H 81 20 97 01/14/23 23:00 99.7 F H 89 25 H 97 01/14/23 22:50 99.9 F H 82 18 97 01/14/23 22:40 99.9 F H 86 21 97 01/14/23 22:30 99.9 F H 84 18 98 01/14/23 22:30 159/81 H 01/15/23 00:00 80 01/14/23 22:20 100.0 F H 81 24 97 01/14/23 22:10 100.2 F H 87 25 H 94 01/14/23 22:00 100.2 F H 107 H 30 H 97 01/14/23 21:50 100.0 F H 96 H 14 92 01/14/23 21:40 100.2 F H 82 17 97 01/14/23 21:30 100.2 F H 79 20 98 01/14/23 21:30 153/74 H 01/14/23 21:20 100.4 F H 84 24 97 01/14/23 21:10 100.4 F H 81 21 98 05/27/23 21:00 100.6 F H 85 21 95 01/14/23 21:00 136/60 01/14/23 20:50 93 H 27 H 96 01/14/23 20:40 120 H 26 H 92 01/14/23 20:30 84 21 97 01/14/23 20:30 161/72 H 01/14/23 20:20 88 24 95 01/14/23 20:10 115 H 25 H 94 01/14/23 20:00 84 22 97 01/14/23 20:00 166/74 H 01/14/23 19:50 86 24 96 01/14/23 19:40 84 24 96 01/14/23 20:09 Room Air PG Care Time/CCT Total # of Minutes Spent Total Time Spent with Patient: Total time spent is greater than 50% in coordination of care (as documented) at patient's floor/unit and/or counseling patient: Coding Level of Care Code 52509 SUB INP/OBS CARE 3/50MIN Diagnoses Acute encephalopathy G93.40 Type 1 diabetes mellitus E10.9 CKD (chronic kidney disease), stage III N18.30 Hypothyroidism E03.8; 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
--- NOTE | 2023-01-15 08:25 | Critical Care Progress Note ---
Date of Service January 15, 2023 Assessment & Plan (1) Acute encephalopathy: Plan: Reason Critically Ill: 67-year-old male with acute encephalopathy and hypoglycemia PLAN: Neuro: Acute encephalopathy -Concern for a prolonged hypoglycemic episode -Cannot exclude subacute CVA: Unable to obtain MRI secondary to inability to cross reference pacemaker MRI compatibility -Cannot exclude small vessel/brainstem/posterior circulation CVA -Staff availability during normal working hours Monday (January 17) -Repeat head CT today -Ammonia unremarkable, Tox screen negative, alcohol level negative -Reports of possible alcohol consumption however what is documented is 1 glass of wine weekly per wellness visit notes, cannot exclude alcohol withdrawal however I feel this is rather unlikely -Carotid Doppler results reviewed. Would likely consider reassessment when patient's mental status improves -Scored 3 out of 5 of mini cognitive testing, suspect there is some baseline dysfunction - Neurology consultation. Resp: Tolerating room air CV: Nonsustained ventricular tachycardia History pacemaker -Make: [employer], device model: [place] XT DR, MRI [id number], RA and RV lead: Medtronic model 5076 Elevated troponins -Currently downtrending, I believe this to be secondary to metabolic derangements and chronic kidney disease -EKG consistent with paced rhythm -Continue heparin for additional 24 hours Fluids/Renal: Chronic kidney disease stage III -At baseline since January 2021 ID: No leukocytosis GI/Nutrition: Cholesterol from February 2022 in adequate range N.p.o. until mental status improves -Could consider core safe tube placement Heme: Anemia -At baseline DVT prophylaxis: Heparin infusion Endocrine: ICU hyperglycemia protocol Type 1 diabetes -Outpatient glucose control with insulin pump -The pump was discontinued by emergency department staff -Maintain euglycemia, avoid hypoglycemia Musculoskeletal: Skin tears -Local wound care, wound nurse consult Vascular access: Peripheral IVs Code Status: Full code Disposition: Stable for downgrade from the ICU (2) Type 1 diabetes mellitus: (3) CKD (chronic kidney disease), stage III: (4) NSVT (nonsustained ventricular tachycardia): (5) Atrioventricular block, complete: (6) Cardiac pacemaker: (7) Hypoglycemia unawareness in type 1 diabetes mellitus: (8) Rheumatoid arthritis: (9) Skin tear of elbow without complication: (10) Skin tear of forearm without complication: (11) Skin tear of right lower leg without complication: Admission and Anticipated Discharge Date Admission Date: January 14, 2023 Subjective Overnight patient minimally improved. Partially opening eyes little more, became somewhat agitated pulling at leads requiring mittens for restraints as he is not redirectable. Overnight there was 1 episode of mild hypoglycemia requiring short period of dextrose containing fluid administration. Review of Systems Review of Systems: Unobtainable due to reduced consciousness Physical Exam Physical Exam: General: Glascow Coma Scale: Eyes: 2, Verbal 2, Motor 5, Total 9. nontoxic. Skin: Warm, dry, Head: Atraumatic Ears, nose, mouth and throat: airway patent Cardiovascular: Normal peripheral perfusion Respiratory: no respiratory distress Gastrointestinal: Non distended Musculoskeletal: Multiple skin tears as previously noted Results & Data Results & Data Vital Signs (Past 12 Hours) Vital Signs Temp Pulse Resp BP Pulse Ox 01/15/23 06:30 37.1 C 70 15 99 01/15/23 06:30 137/65 01/15/23 06:15 37.1 C 75 16 98 01/15/23 06:00 37.2 C 68 16 98 01/15/23 06:00 126/63 01/15/23 05:45 37.2 C 69 28 H 98 01/15/23 05:30 37.1 C 75 13 98 01/15/23 05:30 142/77 H 01/15/23 05:15 37.2 C 79 15 98 01/15/23 05:00 37.2 C 71 16 98 01/15/23 05:00 131/66 01/15/23 04:45 37.2 C 81 16 97 01/15/23 04:31 37.2 C 84 17 99 01/15/23 04:31 141/58 H 01/15/23 04:30 37.2 C 72 16 98 01/15/23 04:15 37.1 C 122 H 34 H 98 01/15/23 04:10 90 16 100 01/15/23 04:00 110 H 21 97 01/15/23 04:00 138/77 01/15/23 03:50 80 20 99 01/15/23 03:40 74 18 98 01/15/23 03:31 156/61 H 01/15/23 03:31 86 19 98 01/15/23 03:30 102 H 21 97 01/15/23 03:20 71 18 97 01/15/23 03:10 74 16 97 01/15/23 03:00 82 18 95 05/28/23 03:00 148/61 H 01/15/23 02:50 85 20 97 01/15/23 02:40 79 15 97 01/15/23 02:30 81 17 98 01/15/23 02:30 158/72 H 01/15/23 02:20 78 19 99 01/15/23 02:10 72 18 97 01/15/23 02:00 77 16 97 01/15/23 02:00 143/68 H 01/15/23 01:50 78 16 98 01/15/23 01:40 75 16 98 01/15/23 01:30 78 17 98 01/15/23 01:30 127/53 L 01/15/23 01:20 77 18 98 01/15/23 01:10 107 H 16 98 01/15/23 01:00 37.3 C 81 25 H 96 01/15/23 01:00 152/65 H 01/15/23 00:50 37.4 C 84 17 98 01/15/23 00:40 37.5 C 81 17 98 01/15/23 00:30 37.4 C 76 19 97 01/15/23 00:30 126/63 01/15/23 00:20 37.5 C 80 17 97 01/15/23 00:10 37.5 C 97 H 20 98 01/15/23 00:00 37.5 C 84 22 99 01/14/23 23:50 37.5 C 79 22 97 01/14/23 23:44 37.5 C 85 28 H 97 01/14/23 23:44 153/65 H 01/14/23 23:40 37.6 C H 80 19 97 01/14/23 23:30 37.6 C H 95 H 27 H 100 01/14/23 23:20 37.6 C H 92 H 22 97 01/14/23 23:10 37.7 C H 81 20 97 01/14/23 23:00 37.6 C H 89 25 H 97 01/14/23 22:50 37.7 C H 82 18 97 01/14/23 22:40 37.7 C H 86 21 97 01/14/23 22:30 37.7 C H 84 18 98 01/14/23 22:30 159/81 H 05/28/23 00:00 80 01/14/23 22:20 37.8 C H 81 24 97 01/14/23 22:10 37.9 C H 87 25 H 94 01/14/23 22:00 37.9 C H 107 H 30 H 97 01/14/23 21:50 37.8 C H 96 H 14 92 01/14/23 21:40 37.9 C H 82 17 97 01/14/23 21:30 37.9 C H 79 20 98 01/14/23 21:30 153/74 H 01/14/23 21:20 38.0 C H 84 24 97 01/14/23 21:10 38.0 C H 81 21 98 01/14/23 21:00 38.1 C H 85 21 95 01/14/23 21:00 136/60 01/14/23 20:50 93 H 27 H 96 01/14/23 20:40 120 H 26 H 92 01/14/23 20:30 84 21 97 01/14/23 20:30 161/72 H 01/14/23 20:20 88 24 95 Critical Care Results & Data Vital Signs (Past 12 Hours) Vital Signs Temp Pulse Resp BP Pulse Ox 01/15/23 06:30 37.1 C 70 15 99 01/15/23 06:30 137/65 01/15/23 06:15 37.1 C 75 16 98 01/15/23 06:00 37.2 C 68 16 98 01/15/23 06:00 126/63 01/15/23 05:45 37.2 C 69 28 H 98 01/15/23 05:30 37.1 C 75 13 98 01/15/23 05:30 142/77 H 01/15/23 05:15 37.2 C 79 15 98 01/15/23 05:00 37.2 C 71 16 98 01/15/23 05:00 131/66 01/15/23 04:45 37.2 C 81 16 97 01/15/23 04:31 37.2 C 84 17 99 01/15/23 04:31 141/58 H 01/15/23 04:30 37.2 C 72 16 98 01/15/23 04:15 37.1 C 122 H 34 H 98 01/15/23 04:10 90 16 100 01/15/23 04:00 110 H 21 97 01/15/23 04:00 138/77 01/15/23 03:50 80 20 99 01/15/23 03:40 74 18 98 01/15/23 03:31 156/61 H 01/15/23 03:31 86 19 98 01/15/23 03:30 102 H 21 97 01/15/23 03:20 71 18 97 01/15/23 03:10 74 16 97 01/15/23 03:00 82 18 95 01/15/23 03:00 148/61 H 01/15/23 02:50 85 20 97 01/15/23 02:40 79 15 97 01/15/23 02:30 81 17 98 01/15/23 02:30 158/72 H 01/15/23 02:20 78 19 99 01/15/23 02:10 72 18 97 01/15/23 02:00 77 16 97 01/15/23 02:00 143/68 H 01/15/23 01:50 78 16 98 01/15/23 01:40 75 16 98 01/15/23 01:30 78 17 98 01/15/23 01:30 127/53 L 01/15/23 01:20 77 18 98 01/15/23 01:10 107 H 16 98 01/15/23 01:00 37.3 C 81 25 H 96 01/15/23 01:00 152/65 H 01/15/23 00:50 37.4 C 84 17 98 01/15/23 00:40 37.5 C 81 17 98 01/15/23 00:30 37.4 C 76 19 97 01/15/23 00:30 126/63 01/15/23 00:20 37.5 C 80 17 97 01/15/23 00:10 37.5 C 97 H 20 98 01/15/23 00:00 37.5 C 84 22 99 01/14/23 23:50 37.5 C 79 22 97 01/14/23 23:44 37.5 C 85 28 H 97 01/14/23 23:44 153/65 H 01/14/23 23:40 37.6 C H 80 19 97 01/14/23 23:30 37.6 C H 95 H 27 H 100 01/14/23 23:20 37.6 C H 92 H 22 97 01/14/23 23:10 37.7 C H 81 20 97 01/14/23 23:00 37.6 C H 89 25 H 97 01/14/23 22:50 37.7 C H 82 18 97 01/14/23 22:40 37.7 C H 86 21 97 01/14/23 22:30 37.7 C H 84 18 98 01/14/23 22:30 159/81 H 01/15/23 00:00 80 01/14/23 22:20 37.8 C H 81 24 97 01/14/23 22:10 37.9 C H 87 25 H 94 01/14/23 22:00 37.9 C H 107 H 30 H 97 01/14/23 21:50 37.8 C H 96 H 14 92 01/14/23 21:40 37.9 C H 82 17 97 01/14/23 21:30 37.9 C H 79 20 98 01/14/23 21:30 153/74 H 01/14/23 21:20 38.0 C H 84 24 97 01/14/23 21:10 38.0 C H 81 21 98 01/14/23 21:00 38.1 C H 85 21 95 01/14/23 21:00 136/60 01/14/23 20:50 93 H 27 H 96 01/14/23 20:40 120 H 26 H 92 01/14/23 20:30 84 21 97 01/14/23 20:30 161/72 H 01/14/23 20:20 88 24 95 Lab & Micro Results (Past 24 Hours) RBC 3.96 M/uL (4.70-6.10) L 01/15/23 WBC 5.75 K/ul (4.8-10.8) 01/15/23 Hgb 13.4 g/dl (14.0-18.0) L 01/15/23 Hct 39.7 % (42.0-52.0) L 01/15/23 MCV 100.3 fL (80.0-100.0) H 01/15/23 MCH 33.8 pg (25.0-34.0) 01/15/23 MCHC 33.8 g/dL (32.0-36.0) 01/15/23 RDW Standard Deviation 49.4 fL (36.4-46.3) H 01/15/23 RDW Coefficient of Variation 13.5 % (11.5-14.5) 01/15/23 Plt Count 127 K/uL (130-400) L 01/15/23 MPV 10.4 fL (9.4-12.4) 01/15/23 Neutrophils (%) (Auto) 72.0 % 01/15/23 Lymphocytes (%) (Auto) 16.9 % 01/15/23 Monocytes # (Auto) 0.44 K/uL (0.11-0.59) 01/15/23 Eosinophils # (Auto) 0.14 K/uL (0-0.50) 01/15/23 Immature Granulocyte % (Auto) 0.3 % 01/15/23 Neutrophils # (Auto) 4.14 K/uL (1.40-6.50) 01/15/23 Lymphocytes # (Auto) 0.97 K/uL (1.2-3.4) L 01/15/23 Monocytes # (Auto) 0.44 K/uL (0.11-0.59) 01/15/23 Eosinophils # (Auto) 0.14 K/uL (0-0.50) 01/15/23 Basophils # (Auto) 0.04 K/uL (0-0.2) 01/15/23 Immature Granulocyte # (Auto) 0.02 K/uL (0.01-0.20) 3 Na 142 mmol/L (136-145) 01/15/23 K 4.0 mmol/L (3.5-5.1) 01/15/23 Cl 107 mmol/L (98-107) 01/15/23 CO2 31 mmol/L (21-32) 01/15/23 Anion Gap 4 (3-11) 01/15/23 BUN 24 mg/dl (6-23) H 01/15/23 Creatinine 1.41 mg/dl (0.6-1.4) H 01/15/23 Estimated GFR ( Amer) 58.5 ml/min 01/15/23 Estimated GFR (Non-Af Amer) 50.5 ml/min 01/15/23 BUN/Creatinine Ratio 17.0 (10-20) 01/15/23 Glu 135 mg/dl (70-99(Fasting)) H 01/15/23 Ca 9.0 mg/dl (8.6-10.3) 01/15/23 Mg 1.9 mg/dl (1.7-2.4) 01/15/23 05:21 Calcium Level 9.0 mg/dl (8.6-10.3) 01/15/23 07:01 Prothromb Time International Ratio 1.1 (0.9-1.1) 01/15/23 05:2 1 Diagnostic Findings (Past 24 Hours) Chest X-Ray 01/14/23 08:04 XR chest 1V portable HISTORY: weakness COMPARISON: Chest 11/30/2020. FINDINGS: No pneumothorax. No pleural effusions. The cardiac silhouette is normal in size. There are mitral anus calcifications and left-sided dual-chamber pacemaker. There are hilar hazy airspace opacities and interstitial thickening consistent with pulmonary edema. IMPRESSION: [id number] pulmonary edema. ACT 112: Negative or not required by law. Electronically signed by: Jose Eduardo Diaz M.D. 01/14/2023 10:[address] 01/14/23 08:[address] DOSE: HISTORY: Altered mental status. Unresponsive. TECHNIQUE: Multiaxial CT images of the head were performed without the use of intravenous contrast. Automated exposure control was utilized for this study. A dose lowering technique was utilized adhering to the principles of ALARA. Comparison: Head CT 03/24/2018. Findings: Motion artifact resulting in suboptimal evaluation of the brain. There is complete opacification of the frontal sinuses, ethmoid air cells, and sphenoid sinuses. Trace right and moderate left maxillary sinus fluid collections are noted. The opacified sinuses and fluid levels are slightly hyperdense. This could represent inspissated secretions. Overall, this has progressed compared to the prior study. The mastoid air cells are clear. 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 The ventricles and sulci are within normal limits for age. There is no definite mass, hematoma, midline shift, acute infarct. Impression: 1. Motion artifact resulting in suboptimal evaluation of the brain. No definite acute intracranial abnormality. 2. Progressive sinus disease as described above. ACT 112: Negative or not required by law. Electronically signed by: Jose Eduardo Diaz M.D. 01/14/2023 8:57 AM Head CTA 01/14/23 08:13 HEAD & NECK CTA HISTORY: Altered mental status TECHNIQUE: Multiaxial CT images of the head were performed following the intravenous administration of contrast to evaluate the major cerebral vessels. Multiaxial CT images of the neck were also performed following the intravenous administration of contrast to evaluate the major cervical vessels. Maximum intensity projection images were also obtained. A dose lowering technique was utilized adhering to the principles of ALARA. COMPARISON: Noncontrast head CT 01/14/2023. FINDINGS: Motion artifact results in suboptimal evaluation of the distal cerebral arteries. There is no mass, hematoma, midline shift, or acute infarct. Visualized intracranial internal carotid arteries, distal vertebral arteries, and basilar artery are widely patent. There is no significant stenosis, occlusion, or aneurysm seen within the bilateral ACAs, MCAs, or lard renderer. The major dural venous sinuses are patent. Moderate calcified plaque within the bilateral carotid siphons. Extensive paranasal sinus disease again noted. Suboptimal evaluation due to motion artifact. The aortic arch and proximal great vessels are widely patent. Moderate calcified plaque within the bilateral carotid bifurcations. This results in approximately 50% stenosis at the takeoff of the right internal carotid artery. There appears a moderate to severe stenosis within the takeoff of the left internal carotid artery due to the calcified plaque. This is suboptimally assessed due to the motion artifact. The mid to distal bilateral internal carotid arteries appear patent. The bilateral common carotid arteries are patent. No evidence for a dissection. The bilateral vertebral arteries appear widely patent. No pneumothorax. Interlobular septal thickening with patchy groundglass densities posteriorly within the lung apices. This is consistent with pulmonary edema. A superimposed pneumonitis would be difficult to exclude but considered less likely. IMPRESSION: 1. Motion artifact resulting in suboptimal evaluation. 2. No definite stenosis, occlusion, or aneurysm within the [place]. 3. Probable moderate to severe stenosis within the takeoff of the left external carotid artery which is suboptimally assessed due to the motion artifact. This can be further evaluated with nonemergent carotid Doppler study. 4. Approximately 50% stenosis at the takeoff of the right internal carotid artery due to the calcified plaque. 5. The bilateral vertebral arteries appear patent. 6. Interlobular septal thickening with patchy groundglass densities posteriorly within the lung apices. This is consistent with pulmonary edema. A superimposed pneumonitis would be difficult to exclude but considered less likely. ACT 112: Negative or not required by law. Electronically signed by: Jose Eduardo Diaz M.D. 01/14/2023 9:07 AM Neck CTA 01/14/23 08:13 HEAD & NECK CTA HISTORY: Altered mental status TECHNIQUE: Multiaxial CT images of the head were performed following the intravenous administration of contrast to evaluate the major cerebral vessels. Multiaxial CT images of the neck were also performed following the intravenous administration of contrast to evaluate the major cervical vessels. Maximum intensity projection images were also obtained. A dose lowering technique was utilized adhering to the principles of ALARA. COMPARISON: Noncontrast head CT 01/14/2023. FINDINGS: Motion artifact results in suboptimal evaluation of the distal cerebral arteries. There is no mass, hematoma, midline shift, or acute infarct. Visualized intracranial internal carotid arteries, distal vertebral arteries, and basilar artery are widely patent. There is no significant stenosis, occlusion, or aneurysm seen within the bilateral ACAs, MCAs, or lard renderer. The major dural venous sinuses are patent. Moderate calcified plaque within the bilateral carotid siphons. Extensive paranasal sinus disease again noted. Suboptimal evaluation due to motion artifact. The aortic arch and proximal great vessels are widely patent. Moderate calcified plaque within the bilateral carotid bifurcations. This results in approximately 50% stenosis at the takeoff of the right internal carotid artery. There appears a moderate to severe stenosis within the takeoff of the left internal carotid artery due to the calcified plaque. This is suboptimally assessed due to the motion artifact. The mid to distal bilateral internal carotid arteries appear patent. The bilateral common carotid arteries are patent. No evidence for a dissection. The bilateral vertebral arteries appear widely patent. No pneumothorax. Interlobular septal thickening with patchy groundglass densities posteriorly within the lung apices. This is consistent with pulmonary edema. A superimposed pneumonitis would be difficult to exclude but considered less likely. IMPRESSION: 1. Motion artifact resulting in suboptimal evaluation. 2. No definite stenosis, occlusion, or aneurysm within the [place]. 3. Probable moderate to severe stenosis within the takeoff of the left external carotid artery which is suboptimally assessed due to the motion artifact. This can be further evaluated with nonemergent carotid Doppler study. 4. Approximately 50% stenosis at the takeoff of the right internal carotid artery due to the calcified plaque. 5. The bilateral vertebral arteries appear patent. 6. Interlobular septal thickening with patchy groundglass densities posteriorly within the lung apices. This is consistent with pulmonary edema. A superimposed pneumonitis would be difficult to exclude but considered less likely. ACT 112: Negative or not required by law. Electronically signed by: Jose Eduardo Diaz M.D. 01/14/2023 9:07 AM Carotid Doppler Study 01/14/23 10:51 BILATERAL CAROTID DOPPLER STUDY HISTORY: Abnormal CTA. Evaluate for carotid stenosis. COMPARISON: CTA neck 01/14/2023. TECHNIQUE: Real-time, grayscale, and color Doppler sonography of the carotid arteries was performed. Imaging reviewed in the transverse and longitudinal planes. All measurements were calculated based on NASCET criteria. FINDINGS: Only the right vertebral artery was able to be visualized on this examination and appears to demonstrate antegrade flow. Of note, the left vertebral artery was patent on the same day neck CTA. Mild right and moderate left proximal carotid artery calcified plaque. The peak systolic velocity within the right ICA is 86 cm/s.. The right systolic ratio is 1.1. The peak systolic velocity within the left ICA is 170 cm/s proximally. The left carotid artery was not well visualized due to the patient's condition, therefore, the left systolic ratio was unable to be obtained. IMPRESSION: 1. Suboptimal study due to the patient's condition. 2. Likely 50-79% stenosis within the proximal left internal carotid artery as described above. This can be reassessed once the patient's condition has improved. 3. No hemodynamically significant stenosis within the right carotid arteries. ACT 112: Negative or not required by law. Electronically signed by: Jose Eduardo Diaz M.D. 01/14/2023 5:24 PM I & O Totals 24 Hours 01/14/23 01/15/23 01/16/23 06:59 06:59 06:59 Intake Total 2307.491 / 2307.491 Output Total 3125 / 3125 Balance -817.509 / -817.509 Cumulative 01/14/23 07:08 thru 01/15/23 06:53 Intake Total 2307.491 Output Total 3125 Balance -817.509 RT Ventilator Mngmt (Last Documented) Ventilator Ordered Settings Ventilator Support Mode Assist Control 01/14/23 08:50 Respiratory Rate 15 01/15/23 06:30 Ventilator Tidal Volume 450 01/14/23 08:50 Setting Minute Ventilation 8.3 01/14/23 08:50 Positive End Expiratory 5 01/14/23 08:50 Pressure Fraction of Inspired Oxygen 35 01/14/23 08:50 Ventilator - PT Measurements Respiratory Rate 15 Exhaled Tidal Volume 450 Minute Ventilation 8.3 Peak Inspiratory Airway 19 Pressure Respiratory Cycle Inspiratory: 1:3.2 Expiratory Ratio Inspiratory Phase Time 0.8 End-Tidal CO2 51 Dynamic Lung Compliance 32.14 Normal Static Lung Compliance 47.00 Coding Level of Care Code 36786 SUB INP/OBS CARE 3/50MIN Diagnoses Acute encephalopathy G93.40 Type 1 diabetes mellitus E10.9 CKD (chronic kidney disease), stage III N18.30 NSVT (nonsustained ventricular tachycardia) I47.2 Atrioventricular block, complete I44.2 Cardiac pacemaker Z95.0 Hypoglycemia unawareness in type 1 diabetes mellitus E10.649 Rheumatoid arthritis M06.9 Skin tear of elbow without complication S51.019A Skin tear of forearm without complication S51.819A Skin tear of right lower leg without complication S81.811A
[2023-01-15] MEDS ORDERED: ENOXAPARIN INJ 40 MG/0.4 ML SYR SQ SCH (09:00)
--- NOTE | 2023-01-15 09:23 | CT Scan Report ---
CT head/brain wo con CLINICAL HISTORY: F/U r/o cva Technique: Contiguous axial CT images of the head were acquired from the base of the skull to the tripp nichol without intravenous contrast administration. Images were viewed in brain, subdural and bone windo ws. Automated dose lowering techniques and/or adjustment according to patient size were utilized for this exam. Comparison: Comparison is made to CTA head and neck 01/14/2023 Findings: Areas of decreased attenuation are present in the periventricular and subcortical white matter bilate rally consistent with small vessel ischemic disease. Generalized cerebral atrophy with commensurate e nlargement of the ventricles, sulci, and cisterns is also present. There is no acute intracranial hem orrhage or evidence of acute territorial infarction. No shift of the midline structures, mass effect, or extra-axial abnormalities are shown. Atherosclerotic calcifications are present in the intracran ial segments of the internal carotid arteries. Bilateral maxillary sinus disease is seen. There is opacification of the frontal, ethmoid, and spheno id sinuses. The orbits appear normal. There are no acute fractures of the calvaria or scalp swelling . Impression: 1. No acute intracranial hemorrhage, no evidence of acute territorial infarction or other acute intr acranial disease process. 2. Extensive sinus disease. ACT 112: Negative or not required by law. Electronically signed by: Andrew Jeter M.D. 01/15/2023 9:21 AM
--- NOTE | 2023-01-15 10:01 | Neurology Consultation ---
Date of Consultation January 15, 2023 Assessment & Plan (1) Acute encephalopathy: Encephalopathy is common after hypoglycemia and can produce at worst a clinical picture similar to hypoxic-ischemic encephalopathy (persistent vegetative state). In lieu of an MRI, I suspect he clinically suffered mild cortical injury secondary to the hypoglycemia but as he can follow commands and has no visual impairment 48 hrs out from the event, the prognosis is good. Continue to avoid hypoglycemia and sedating medication. Supportive care to minimize the risk for hospital delirium (out of bed, reorientation, natural light). Therapy will be important as well. Otherwise further imaging and testing at this point given his non-focal exam is not going to affect management. Recovery time is typically on the order of weeks. Please contact us with further questions. Telehealth Consultation Telehealth Information Telehealth Information: I performed this visit using a real-time telehealth connection between my location and the patients location ([facility]). After connecting through interactive tele-video, patient was identified by name and date of and/or wristband check.Patient (or authorized healthcare surgical sales representative) was informed that this was a telemedicine visit and it was being conducted confidentially over secure lines. My office door was closed and no one else was present in the room with me.Patient (or authorized healthcare surgical sales representative) provided consent to proceed with the visit, expressed an understanding of privacy and security of the telemedicine visit, and gave permission to have a hospital surgical sales representative in the room in order to assist with the visit and to conduct portions of the visit, as needed. I informed the patient (or authorized healthcare surgical sales representative) that I reviewed their record and presented the opportunity for them to ask any questions regarding the visit today. The patient agreed to participate. History of Present Illness Reason for Consultation: Encephalopathy Requesting Physician: Dr. Key Attending Physician: Nathan Key MD History of Present Illness Eduard Palacios is a 67 yo M presenting with hypoglycemia in the setting of type 1 diabetes. He was found down at home by family, with a last known well 12 hours prior and a BG in the 20s. He was briefly intubated and since extubation has been agitated and disoriented. Possible mild cognitive impairment at baseline. Mental status appears to otherwise be slowly improving per nursing. No seizure activity noted, no focal deficits. He is unable to contribute to the history. Allergies Allergy/AdvReac Type Severity Reaction Status Date / Time No Known Drug Allergies Allergy Verified 12/13/22 09:23 Home Medications Medication Instructions Recorded Confirmed Type cholecalciferol (vitamin D3) 25 0 unit PO QAM 06/24/19 01/14/23 History mcg (1,000 unit) capsule (Vitamin D3) ferrous sulfate 325 mg (65 mg 0 mg PO QAM 06/24/19 01/14/23 History iron) tablet (Iron (ferrous sulfate)) folic acid 1 mg tablet 1 mg PO QAM #90 tabs 09/04/19 01/14/23 Rx methotrexate sodium 2.5 mg tablet 10 mg PO WEEKLY #72 tabs 09/16/20 01/14/23 History blood-glucose meter,continuous #1 ea 02/23/21 12/13/22 History (Dexcom G6 Yard Supervisor) blood-glucose sensor (Dexcom G6 #3 ea 02/23/21 12/13/22 History Sensor device) blood-glucose transmitter (Dexcom #1 ea 02/23/21 12/13/22 History G6 Transmitter device) subcutaneous insulin pump (MiniMed #1 ea 02/23/21 12/13/22 History 670G Insulin Pump) blood sugar diagnostic (Contour #100 ea 08/24/21 12/13/22 Rx Next Test Strips) Humalog U-100 Insulin 100 unit/mL 50 unit (0.5 mL) continuous 05/10/22 01/14/23 Rx subcutaneous solution (insulin subcutaneous infusion DAILY 90 lispro) days #5 vials levothyroxine 112 mcg tablet 112 mcg PO DAILY 90 days #90 tabs 12/21/22 01/14/23 Rx fluticasone propionate 44 0 puff inhalation BID 01/14/23 01/14/23 History mcg/actuation HFA aerosol inhaler (Flovent HFA) sildenafil 100 mg tablet PO DAILY PRN sexual activity 01/14/23 01/14/23 History Patient History Medical History Chronic cough reason inhaler Diabetes mellitus type 1 Hypothyroidism Insulin pump in place Type 1 diabetes mellitus, uncontrolled Surgical History History of colonoscopy History of surgical procedure on eye proper using laser bilt eyes History of tooth extraction [facility] 2017 [facility] insertion of insulin pump Family History Other Lung disease No family history of adverse response to anesthesia Denies family history of Ovarian cancer Prostate cancer Heart disease Breast cancer Colorectal cancer Social History Smoking Status: Never smoker Second Hand Exposure: No; Do You Dip or Chew Tobacco: No; Hx Alcohol Use: Yes Alcohol type: beer, wine and hard liquor Hx Substance Use: No Preferred Language: Slovenian Communication Ability: Impaired Hearing Ability: Normal Insole And Outsole Preparer Required: No Beliefs That Will Affect Care: None marital status: Current Living Situation: Spouse current occupational status: retired Feels Safe at Home: Yes Safety Concerns: Feels Safe At This Time Dental Care, Regularly: Yes Physical Activity Frequency: Daily Physical Activity Frequency Comment: spin bike, free weights, stretching Seatbelt Use: always Sunscreen Use: Yes Assistive Devices: None Review of Systems Unable to obtain Physical Exam Neurological Examination: Mental Status: Alerts to voice. Oriented to person. Able to name the objects on the stroke cards with redirection. Speech is mildly dysarthric Comprehension intact, can follow one step commands. Cranial Nerves: II: Reads NIHSS cards, pupils 3/3 to 2/2, III/IV/: Versions intact without nystagmus, no gaze preference. VII: Facial expression symmetric XII: Tongue midline Motor: Strength was symmetric and antigravity throughout. Pronator drift was absent. There were no abnormal movements. Reflexes: Unable to assess over telemedicine Results & Data Vital Signs (Past 12 Hours) Vital Signs Temp Pulse Resp BP Pulse Ox O2 Del Method 01/15/23 08:15 37.1 C 74 17 99 01/15/23 08:00 37.1 C 80 18 99 01/15/23 08:00 148/66 H 01/15/23 07:45 37.1 C 72 18 98 01/15/23 07:30 37.1 C 71 17 99 01/15/23 07:30 141/67 H 01/15/23 07:15 37.1 C 73 20 98 01/15/23 07:03 37.1 C 74 16 98 01/15/23 07:03 145/64 H 01/15/23 07:00 37.1 C 80 16 90 Room Air 01/15/23 06:45 37.1 C 74 17 98 01/15/23 08:00 73 01/15/23 06:30 37.1 C 70 15 99 01/15/23 06:30 137/65 01/15/23 06:15 37.1 C 75 16 98 01/15/23 06:00 37.2 C 68 16 98 01/15/23 06:00 126/63 01/15/23 05:45 37.2 C 69 28 H 98 01/15/23 05:30 37.1 C 75 13 98 01/15/23 05:30 142/77 H 01/15/23 05:15 37.2 C 79 15 98 01/15/23 05:00 37.2 C 71 16 98 01/15/23 05:00 131/66 01/15/23 04:45 37.2 C 81 16 97 01/15/23 04:31 37.2 C 84 17 99 01/15/23 04:31 141/58 H 01/15/23 04:30 37.2 C 72 16 98 01/15/23 04:15 37.1 C 122 H 34 H 98 01/15/23 04:10 90 16 100 01/15/23 04:00 110 H 21 97 01/15/23 04:00 138/77 01/15/23 03:50 80 20 99 01/15/23 03:40 74 18 98 01/15/23 03:31 156/61 H 01/15/23 03:31 86 19 98 01/15/23 03:30 102 H 21 97 01/15/23 03:20 71 18 97 01/15/23 03:10 74 16 97 01/15/23 03:00 82 18 95 01/15/23 03:00 148/61 H 01/15/23 02:50 85 20 97 01/15/23 02:40 79 15 97 01/15/23 02:30 81 17 98 01/15/23 02:30 158/72 H 01/15/23 02:20 78 19 99 01/15/23 02:10 72 18 97 01/15/23 02:00 77 16 97 01/15/23 02:00 143/68 H 01/15/23 01:50 78 16 98 01/15/23 01:40 75 16 98 01/15/23 01:30 78 17 98 01/15/23 01:30 127/53 L 01/15/23 01:20 77 18 98 01/15/23 01:10 107 H 16 98 01/15/23 01:00 37.3 C 81 25 H 96 01/15/23 01:00 152/65 H 01/15/23 00:50 37.4 C 84 17 98 01/15/23 00:40 37.5 C 81 17 98 01/15/23 00:30 37.4 C 76 19 97 01/15/23 00:30 126/63 01/15/23 00:20 37.5 C 80 17 97 01/15/23 00:10 37.5 C 97 H 20 98 01/15/23 00:00 37.5 C 84 22 99 01/14/23 23:50 37.5 C 79 22 97 01/14/23 23:44 37.5 C 85 28 H 97 01/14/23 23:44 153/65 H 01/14/23 23:40 37.6 C H 80 19 97 01/14/23 23:30 37.6 C H 95 H 27 H 100 01/14/23 23:20 37.6 C H 92 H 22 97 01/14/23 23:10 37.7 C H 81 20 97 01/14/23 23:00 37.6 C H 89 25 H 97 01/14/23 22:50 37.7 C H 82 18 97 01/14/23 22:40 37.7 C H 86 21 97 01/14/23 22:30 37.7 C H 84 18 98 01/14/23 22:30 159/81 H 01/15/23 00:00 80 01/14/23 22:20 37.8 C H 81 24 97 01/14/23 22:10 37.9 C H 87 25 H 94 01/14/23 22:00 37.9 C H 107 H 30 H 97 Laboratory Results Abnormal lab results 01/14/23 01/14/23 01/14/23 Range/Units 11:35 12:32 16:33 RBC (4.70-6.10) M/uL Hgb (14.0-18.0) g/dl Hct (42.0-52.0) % MCV (80.0-100.0) fL RDW Std Deviation (36.4-46.3) fL Plt Count (130-400) K/uL Lymph # (Auto) (1.2-3.4) K/uL APTT (21.0-31.0) Seconds BUN 25 H (6-23) mg/dl Creatinine (0.6-1.4) mg/dl Glucose 219 H (70-99(Fasting)) mg/dl POC Glucose 201 H 188 H (70-99) mg/dl Troponin I High Sens 201.8 H* (0-20) pg/ml 01/14/23 01/14/23 01/14/23 Range/Units 20:19 20:52 22:24 RBC (4.70-6.10) M/uL Hgb (14.0-18.0) g/dl Hct (42.0-52.0) % MCV (80.0-100.0) fL RDW Std Deviation (36.4-46.3) fL Plt Count (130-400) K/uL Lymph # (Auto) (1.2-3.4) K/uL APTT 107.2 H* (21.0-31.0) Seconds BUN (6-23) mg/dl Creatinine (0.6-1.4) mg/dl Glucose (70-99(Fasting)) mg/dl POC Glucose 161 H (70-99) mg/dl Troponin I High Sens 170.9 H* (0-20) pg/ml 01/15/23 01/15/23 01/15/23 Range/Units 02:16 04:08 05:21 RBC 3.96 L (4.70-6.10) M/uL Hgb 13.4 L (14.0-18.0) g/dl Hct 39.7 L (42.0-52.0) % MCV 100.3 H (80.0-100.0) fL RDW Std Deviation 49.4 H (36.4-46.3) fL Plt Count 127 L (130-400) K/uL Lymph # (Auto) 0.97 L (1.2-3.4) K/uL APTT (21.0-31.0) Seconds BUN (6-23) mg/dl Creatinine (0.6-1.4) mg/dl Glucose (70-99(Fasting)) mg/dl POC Glucose 130 H 145 H (70-99) mg/dl Troponin I High Sens (0-20) pg/ml 01/15/23 01/15/23 01/15/23 Range/Units 05:21 05:21 07:01 RBC (4.70-6.10) M/uL Hgb (14.0-18.0) g/dl Hct (42.0-52.0) % MCV (80.0-100.0) fL RDW Std Deviation (36.4-46.3) fL Plt Count (130-400) K/uL Lymph # (Auto) (1.2-3.4) K/uL APTT 60.9 H* (21.0-31.0) Seconds BUN 24 H (6-23) mg/dl Creatinine 1.41 H (0.6-1.4) mg/dl Glucose 135 H (70-99(Fasting)) mg/dl POC Glucose (70-99) mg/dl Troponin I High Sens 140.8 H* (0-20) pg/ml 01/15/23 Range/Units 07:51 RBC (4.70-6.10) M/uL Hgb (14.0-18.0) g/dl Hct (42.0-52.0) % MCV (80.0-100.0) fL RDW Std Deviation (36.4-46.3) fL Plt Count (130-400) K/uL Lymph # (Auto) (1.2-3.4) K/uL APTT (21.0-31.0) Seconds BUN (6-23) mg/dl Creatinine (0.6-1.4) mg/dl Glucose (70-99(Fasting)) mg/dl POC Glucose 130 H (70-99) mg/dl Troponin I High Sens (0-20) pg/ml Diagnostic Findings CT head - unremarkable
--- NOTE | 2023-01-15 10:59 | Electrocardiogram Report ---
Test Reason : Blood Pressure : / mmHG Vent. Rate : 110 BPM Atrial Rate : 110 BPM P-R Int : 172 ms QRS Dur : 154 ms QT Int : 368 ms P-R-T Axes : 078 -60 100 degrees QTc Int : 498 ms Poor data quality, interpretation may be adversely affected Sinus tachycardia Atrial-sensed ventricular-paced rhythm Abnormal ECG When compared with ECG of 14-JAN-2023 08:03, Vent. rate has increased BY 15 BPM Confirmed by Ben Garcia ([id number]) on 01/15/2023 10:59:12 AM Referred By: REFERRED SELF Confirmed By:Ben Garcia
[2023-01-15] MEDS ORDERED: HALOPERIDOL LACTATE 5 MG/ML 1 ML VIAL ONE (14:06)
[2023-01-15] MEDS ORDERED: HALOPERIDOL LACTATE 5 MG/ML 1 ML VIAL IV STA (14:11)
[2023-01-15] MEDS ORDERED: LORazepam 2 MG/1 ML VIAL ONE (14:23)
[2023-01-15] MEDS ORDERED: LORazepam 2 MG/1 ML VIAL IV PRN (14:23)
[2023-01-15] MEDS ORDERED: HALOPERIDOL LACTATE 5 MG/ML 1 ML VIAL IV PRN (14:24)
--- NOTE | 2023-01-15 14:58 | Pharmacy Report ---
Pharmacy Glycemic Short Note 2 - Date of Service January 15, 2023 - Glycemic Short BSG Results (Last 24 hours): 01/14/23 01/14/23 01/14/23 16:33 20:19 23:29 Glucose POC Glucose 188 H 161 H 73 01/15/23 01/15/23 01/15/23 00:31 02:16 04:08 Glucose POC Glucose 74 130 H 145 H 01/15/23 01/15/23 01/15/23 07:01 07:51 12:32 Glucose 135 H POC Glucose 130 H 165 H OUTPATIENT ANTIDIABETIC REGIMEN: * insulin pump ASSESSMENT: * 67 year old admitted with hypoglycemia. Per notes, BSGs in 20s prior to arrival. He was found unresponsive. Pharmacy consulted for glycemic management. Patient is type 1 diabetic managed on insulin pump. Pump taken off of patient on arrival. * Patient received total of 13 units of insulin yesterday, of which 8 units were basal insulin * Fasting BSG this AM 130 mg/dL, did trend down slightly at HS to 73 mg/dL - will therefore scale back slightly on dosing to prevent any hypoglycemia. Patient still NPO. Home basal insulin settings closer to basal of 14 units/day, however possibly contributing to hypoglycemia outpatient * Continue close monitoring with Q4 hour checks PLAN FOR INPATIENT GLYCEMIC CONTROL: * Hold outpatient oral diabetes medications * Basal insulin * Lantus 7 units daily * Bolus insulin * NovoLog per scale ACHS or Q6hrs while NPO * Goal Range: Low 110 mg/dL - High 140 mg/dL * Correction Factor: 40 mg/dL/unit * Nutritional / Prandial insulin per carb ratio of 1 unit per 13 grams CHO consumed
[2023-01-15] MEDS: HEPARIN SODIUM/DEXTROSE 25,000 UNITS/500 ML BAG IV SCH (15:10)
[2023-01-15 15:23] LABS: Lyme Ab IgG w/WB Rflx Negative (Negative); Lyme Ab IgM w/WB Rflx Negative (Negative)
[2023-01-15] MEDS ORDERED: LANTUS PER UNIT CHARGE SC SCH ×3 (18:00→20:00)
[2023-01-15] MEDS: SODIUM CHLORIDE 0.9% 1000ML 1,000 ML IV SCH (19:04)
[2023-01-15] MEDS ORDERED: SODIUM CHLORIDE 0.9% 1000ML 250 ML IV ONE (22:49)
[2023-01-16] MEDS: INSULIN ASPART PER UNIT CHARGE SC SCH ×5 (03:36→20:49)
[2023-01-16 04:20] LABS: Basophils # (auto) 0.02 K/uL (0-0.2); Basophils % (auto) 0.5 %; Eosinophils # (auto) 0.37 K/uL (0-0.50); Eosinophils % (auto) 8.9 %; Hemoglobin 13.3 g/dl (14.0-18.0); Immature Granulocytes # (auto) 0.01 K/uL (0.01-0.20); Immature Granulocytes % (auto) 0.2 %; Lymphocytes # (auto) 1.02 K/uL (1.2-3.4); Lymphocytes % (auto) 24.5 %; Mean Corpuscular Hgb Conc 34.1 g/dL (32.0-36.0); Mean Corpuscular Volume 99.7 fL (80.0-100.0); Mean Platelet Volume 10.6 fL (9.4-12.4); Monocytes # (auto) 0.33 K/uL (0.11-0.59); Monocytes % (auto) 7.9 %; Neutrophils # (auto) 2.42 K/uL (1.40-6.50); Platelet Count 112 K/uL (130-400); RDW Coefficient of Variation 13.4 % (11.5-14.5); RDW Standard Deviation 48.6 fL (36.4-46.3); Red Blood Count 3.91 M/uL (4.70-6.10); White Blood Count 4.17 K/ul (4.8-10.8)
[2023-01-16 04:34] LABS: BUN Creatinine Ratio 16.4 (10-20); Calcium 8.6 mg/dl (8.6-10.3); Creatinine Clr Calc Pharmacy 45.3 ml/min; Est GFR (African American) 62.2 ml/min; Est GFR (Non-African American) 53.7 ml/min; Magnesium 1.9 mg/dl (1.7-2.4); Potassium 4.1 mmol/L (3.5-5.1)
[2023-01-16 04:46] LABS: Partial Thromboplastin Ratio 0.9; Partial Thromboplastin Time 24.5 Seconds (21.0-31.0)
--- NOTE | 2023-01-16 07:58 | Critical Care Progress Note ---
Date of Service January 16, 2023 Assessment & Plan (1) Hypoglycemic event in diabetes: (2) Acute encephalopathy: (3) Type 1 diabetes mellitus: (4) CKD (chronic kidney disease), stage III: (5) Chronic sinusitis: (6) Nasal polyp: (7) Asthma: (8) NSVT (nonsustained ventricular tachycardia): (9) Rheumatoid arthritis: (10) Hypothyroidism: (11) Pulmonary hypertension: (12) Mitral stenosis: Plan Reason Critically Ill: 67-year-old male with acute encephalopathy and hypoglycemia PLAN: Neuro: Acute encephalopathy -Concern for a prolonged hypoglycemic episode -Cannot exclude subacute CVA: Unable to obtain MRI secondary to inability to cross reference pacemaker MRI compatibility -Cannot exclude small vessel/brainstem/posterior circulation CVA -Staff availability for MRI during normal working hours Monday (January 17) -Ammonia unremarkable, Tox screen negative, alcohol level negative -Reports of possible alcohol consumption however what is documented is 1 glass of wine weekly per wellness visit notes -Scored 3 out of 5 of mini cognitive testing, suspect there is some baseline dysfunction -TSH within normal limit Resp: -- History of asthma On Flovent at home CV: Nonsustained ventricular tachycardia History pacemaker -Make: Medtronic, device model: [place] XT DR, MRI [id number], RA and RV lead: Medtronic model 5076 Elevated troponins likely type II MS -Currently downtrending, I believe this to be secondary to metabolic derangements and chronic kidney disease -EKG consistent with paced rhythm --Pulmonary hypertension Likely type II with severe mitral valve stenosis 2D echo 01/15/2023: Mild concentric LVH, hyperdynamic EF 75%, severe MS, RV normal in size and function PASP 55 mmHg Fluids/Renal: Chronic kidney disease stage III Monitor BUNs/creatinine Avoid nephrotoxic medications ID: No leukocytosis GI/Nutrition: Cholesterol from February 2022 in adequate range Heme: Anemia Monitor H&H Endocrine: ICU hyperglycemia protocol Type 1 diabetes -Outpatient glucose control with insulin pump -The pump was discontinued by emergency department staff -Maintain euglycemia, avoid hypoglycemia --Hypothyroidism On levothyroxine at home TSH within normal limit Musculoskeletal: -- Rheumatoid arthritis On methotrexate at home --Prophylaxis VTE: Heparin GI: None Lines: Peripheral Diet: N.p.o. Plan: In/out: Negative 363, urine output 755 Magnesium being replaced EKG from today does not show any significant change compared to before DC heparin drip and give subcu heparin instead Try to feed the patient today Patient hemodynamically stable to be downgrade to medical floor DC Ramirez prior to downgrade Please note the above document was generated using voice recognition software. It may contain grammatical, syntax or spelling errors.Any formal questions or concerns about the content, text or information contained within the body of this dictation should be directly addressed to the provider for clarification. Admission and Anticipated Discharge Date Admission Date: January 14, 2023 Subjective Patient seen and examined at bedside. No acute distress, no adverse events overnight. Patient denied any headache, no nausea, no vomiting He was awake and oriented to self. Was asking to have something to eat Denies any chest pain, no shortness of breath Review of Systems Review of Systems: All systems reviewed & are unremarkable except as noted in Subjective Physical Exam Physical Exam: Constitutional: No acute distress HEENT: EOMI, PERRLA Respiratory system: Good air entry bilaterally, no wheeze, no rhonchi, mild crackles bilateral lower lobes CVS: S1-S2 positive, no murmurs or gallops Abdomen: Soft, nontender, nondistended, positive bowel sounds x4 Extremities: +2 pulses bilaterally radialis/ dorsalis pedis, no cyanosis, no edema Neuro: Awake alert oriented to self Psych: Normal mood and affect G/U: Positive Ramirez Musculoskeletal: Ecchymosis bilateral dorsal surface of the arm more on the right side Skin: no rashes, warm and dry Lymphatic: no cervical or axillary lymphadenopathy Results & Data Results & Data Vital Signs (Past 12 Hours) Vital Signs Temp Pulse Resp BP Pulse Ox 01/16/23 06:35 36.4 C L 81 16 156/79 H 100 01/16/23 06:30 36.4 C L 77 13 98 01/16/23 06:22 154/80 H 01/16/23 06:22 36.4 C L 84 14 99 01/16/23 06:18 164/82 H 01/16/23 06:18 36.4 C L 83 21 100 01/16/23 06:15 86 15 96 01/16/23 06:00 80 14 99 01/16/23 06:00 171/80 H 01/16/23 05:45 76 13 98 01/16/23 05:30 78 15 100 01/16/23 05:30 148/74 H 01/16/23 05:15 80 16 100 01/16/23 05:06 36.4 C L 79 15 100 01/16/23 05:06 172/76 H 01/16/23 05:02 36.5 C 75 14 99 01/16/23 05:00 36.5 C 78 17 99 01/16/23 04:45 36.5 C 78 15 99 01/16/23 04:30 36.4 C L 01/16/23 04:15 36.3 C L 78 16 99 01/16/23 04:01 150/76 H 01/16/23 04:01 36.2 C L 81 15 98 01/16/23 04:00 36.2 C L 74 15 98 01/16/23 03:45 36.2 C L 73 15 99 01/16/23 03:30 36.2 C L 75 13 98 01/16/23 03:30 158/65 H 01/16/23 03:15 36.3 C L 69 13 97 01/16/23 03:00 36.3 C L 68 10 L 98 01/16/23 03:00 144/61 H 01/16/23 02:45 36.2 C L 65 14 97 01/16/23 02:30 36.2 C L 67 14 96 01/16/23 02:30 145/65 H 01/16/23 02:15 36.1 C L 68 14 98 01/16/23 02:00 36.2 C L 70 15 98 01/16/23 02:00 157/66 H 01/16/23 01:45 36.1 C L 68 14 97 01/16/23 01:30 36.1 C L 67 14 96 01/16/23 01:30 130/57 L 01/16/23 01:15 36.2 C L 67 15 96 01/16/23 01:00 133/59 L 01/16/23 01:00 36.2 C L 67 14 96 01/16/23 00:45 36.2 C L 69 12 97 01/16/23 00:30 36.2 C L 68 14 96 01/16/23 00:30 139/68 01/16/23 00:15 36.2 C L 71 17 98 01/16/23 00:00 36.1 C L 70 14 97 05/29/23 00:00 152/58 H 01/15/23 23:45 36.1 C L 67 13 97 01/15/23 23:34 138/64 01/15/23 23:34 36.2 C L 68 13 96 01/15/23 23:30 36.2 C L 70 13 98 01/15/23 23:30 170/75 H 01/15/23 23:15 36.1 C L 72 14 98 01/15/23 23:00 36.2 C L 72 15 98 01/15/23 23:00 137/61 01/15/23 22:45 36.3 C L 79 18 99 01/15/23 23:11 70 01/15/23 22:30 36.3 C L 68 14 96 01/15/23 22:30 126/56 L 01/15/23 22:15 36.4 C L 70 15 96 01/15/23 22:00 36.4 C L 68 16 95 01/15/23 22:00 114/51 L 01/15/23 21:45 36.5 C 68 16 96 01/15/23 21:31 170/112 H 01/15/23 21:31 36.5 C 89 22 97 01/15/23 21:30 36.5 C 83 16 98 01/15/23 21:15 36.5 C 75 14 96 01/15/23 21:00 36.6 C 76 20 95 01/15/23 21:00 142/59 H 01/15/23 20:45 36.8 C 75 17 95 01/15/23 20:30 36.9 C 79 19 84 L 01/15/23 20:30 148/56 H 01/15/23 20:15 37.1 C 80 16 95 01/15/23 20:00 37.1 C 96 01/15/23 20:00 135/58 L Laboratory Results 01/16/23 04:08 01/16/23 04:08 Coding Level of Care Code 83451 SUB INP/OBS CARE 3/50MIN Diagnoses Hypoglycemic event in diabetes E11.649 Acute encephalopathy G93.40 Type 1 diabetes mellitus E10.9 CKD (chronic kidney disease), stage III N18.30 Chronic sinusitis J32.9 Nasal polyp J33.9 Asthma J45.909 NSVT (nonsustained ventricular tachycardia) I47.2 Rheumatoid arthritis M06.9 Hypothyroidism E03.8; E06.3 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
[2023-01-16] MEDS: MAGNESIUM SULFATE / D5W 1 GM/100 ML BAG IV SCH ×2 (07:59→09:40)
--- NOTE | 2023-01-16 10:53 | Electrocardiogram Report ---
Test Reason : Blood Pressure : / mmHG Vent. Rate : 080 BPM Atrial Rate : 080 BPM P-R Int : 192 ms QRS Dur : 166 ms QT Int : 470 ms P-R-T Axes : 078 -64 100 degrees QTc Int : 542 ms Atrial-sensed ventricular-paced rhythm with occasional Premature ventricular complexes Abnormal ECG When compared with ECG of 14-JAN-2023 13:56, Premature ventricular complexes are now Present Vent. rate has decreased BY 30 BPM Confirmed by Ben Garcia ([id number]) on 01/16/2023 10:53:23 AM Referred By: REFERRED SELF Confirmed By:Ben Garcia
[2023-01-16] MEDS: SODIUM CHLORIDE 0.9% 1000ML 1,000 ML IV SCH (11:43)
--- NOTE | 2023-01-16 12:10 | Pharmacy Report ---
Pharmacy Glycemic Short Note 2 - Date of Service January 16, 2023 - Glycemic Short BSG Results (Last 24 hours): 01/15/23 01/15/23 01/15/23 12:32 16:02 19:58 Glucose POC Glucose 165 H 93 147 H 01/15/23 01/16/23 01/16/23 23:32 03:30 04:08 Glucose 117 H POC Glucose 131 H 124 H 01/16/23 01/16/23 07:51 11:29 Glucose POC Glucose 102 H 211 H OUTPATIENT ANTIDIABETIC REGIMEN: * insulin pump: TDD 27 units * ICR 22 * CF 65 * Basal 13 units/day ASSESSMENT: 01/16 * Patient received 7 units of insulin yesterday, 5 units basal, was NPO, resumed diet at lunch today. * Change goal range for improved clinical status, will be conservative as patient admitted with hypoglycemia. * Fasting blood sugar at goal, but increase in basal as diet has been resumed, based on blood sugar. * Continue CF/ CR at this time. 01/15 * 67 year old admitted with hypoglycemia. Per notes, BSGs in 20s prior to arrival. He was found unresponsive. Pharmacy consulted for glycemic management. Patient is type 1 diabetic managed on insulin pump. Pump taken off of patient on arrival. * Patient received total of 13 units of insulin yesterday, of which 8 units were basal insulin * Fasting BSG this AM 130 mg/dL, did trend down slightly at HS to 73 mg/dL - will therefore scale back slightly on dosing to prevent any hypoglycemia. Patient still NPO. Home basal insulin settings closer to basal of 14 units/day, however possibly contributing to hypoglycemia outpatient * Continue close monitoring with Q4 hour checks PLAN FOR INPATIENT GLYCEMIC CONTROL: * Basal insulin * Lantus SQ HS: * BSG < 100 - 5 units * BSG 100-180 - 10 units * BSG > 180 - 13 units * Bolus insulin * NovoLog per scale ACHS or Q6hrs while NPO * Goal Range: Low 120 mg/dL - High 150 mg/dL (higher range d/t previous hypoglycemia) * Correction Factor: 40 mg/dL/unit * Nutritional / Prandial insulin per carb ratio of 1 unit per 13 grams CHO consumed
--- NOTE | 2023-01-16 17:25 | Hospitalist Progress Note ---
Date of Service January 16, 2023 Assessment & Plan (1) Acute encephalopathy: Plan: Acute/unstable - high risk improving - Metabolic encephalopathy likely secondary to prolonged hypoglycemia +/- seizure We will add thiamine daily to see if it improves his mental condition - Neurology consultation feels this is encephalopathy from prolonged hypoglycemia with mild cortical injury but feels that the patient has good prognosis but may take weeks to improve back to baseline recommending supportive care no additional adjunctive testing recommended at this time - no obvious s/sx concerning for acute infection - CXR with pulmonary edema - Dose of IV Lasix 20mg x1 given resolution of any significant respiratory distress - Prolactin not significantly elevated - Urine tox screen negative and LAYLA is negative -Repeat CT head unrevealing for acute hemorrhage sinus disease seen Carotid Dopplers showed a 50 to 79% stenosis of the LICA will need to be addressed as an outpatient initiate aspirin therapy (2) Type 1 diabetes mellitus: Plan: Chronic/unstable - Suspect he's having hypoglycemic episodes, perhaps more frequently than realized - Reviewed records, last a1c is 6.1% in Sep 2022 - Insulin pump removed - -D5 discontinued pharmacy glycemic consult enacted - NPO until patient is awake and appropriate for oral intake (3) CKD (chronic kidney disease), stage III: Plan: Chronic/stable - Baseline creatinine ~1.5 - (4) Hypothyroidism: Plan: Chronic/stable - Continue Levothyroxine (5) Hypertension: Plan: Chronic/stable - BP currently in ED 169/99 History noted but currently not taking any antihypertensives Will monitor BP and treat accordingly Plan Will place on Lovenox for DVT ppx. Admission and Anticipated Discharge Date Admission Date: January 14, 2023 Subjective Patient is awake and conversant more oriented still not oriented to place or time but does remember president etc. does know the month No focal complaints or problems is pleasant cooperative Physical Exam Physical Exam: Patient was conversant interactive follows commands Cardiac exam appeared to be regular he does have a history of pacemaker p lacement Lungs are clear Neurologically he has no focal deficits and his memory is returning Results & Data Results & Data Vital Signs (Past 12 Hours) Vital Signs Temp Pulse Resp BP Pulse Ox O2 Del Method 01/16/23 17:00 84 24 99 Room Air 01/16/23 16:00 75 21 01/16/23 15:00 97.9 F 74 16 100 01/16/23 15:00 167/77 H 01/16/23 14:01 97.9 F 75 15 99 01/16/23 14:01 181/70 H 01/16/23 14:00 97.9 F 75 18 99 01/16/23 13:00 97.9 F 79 21 99 Room Air 01/16/23 13:00 147/79 H 01/16/23 12:00 97.7 F 80 18 99 01/16/23 12:00 169/86 H 01/16/23 11:00 97.9 F 76 15 99 01/16/23 11:00 167/76 H 01/16/23 10:01 97.7 F 85 24 100 Room Air 01/16/23 10:01 119/64 01/16/23 10:00 97.7 F 78 21 99 01/16/23 09:00 97.7 F 78 19 100 01/16/23 09:00 158/73 H 01/16/23 08:00 97.5 F L 79 15 99 01/16/23 08:00 171/82 H 01/16/23 07:30 166/76 H 01/16/23 07:30 97.5 F L 81 14 98 01/16/23 07:00 97.5 F L 79 14 98 Room Air 01/16/23 07:00 164/84 H 01/16/23 07:57 Room Air 01/16/23 06:35 97.5 F L 81 16 156/79 H 100 01/16/23 06:30 97.5 F L 77 13 98 01/16/23 06:22 154/80 H 01/16/23 06:22 97.5 F L 84 14 99 01/16/23 06:18 164/82 H 01/16/23 06:18 97.5 F L 83 21 100 01/16/23 06:15 86 15 96 01/16/23 06:00 80 14 99 01/16/23 06:00 171/80 H 01/16/23 05:45 76 13 98 01/16/23 05:30 78 15 100 01/16/23 05:30 148/74 H Laboratory Results Reviewed CBC Reviewed chemistry PG Care Time/CCT Total # of Minutes Spent Total Time Spent with Patient: Total time spent is greater than 50% in coordination of care (as documented) at patient's floor/unit and/or counseling patient: Coding Level of Care Code 29077 SUB INP/OBS CARE Diagnoses Acute encephalopathy G93.40 Type 1 diabetes mellitus E10.9 CKD (chronic kidney disease), stage III N18.30 Hypothyroidism E03.8; 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
[2023-01-16] MEDS ORDERED: THIAMINE HCL 200 MG in SODIUM CHLORIDE 0.9% 50 ML IV STA (19:01)
[2023-01-16] MEDS ORDERED: LANTUS PER UNIT CHARGE SC SCH (20:00)
[2023-01-16] MEDS: HEPARIN SOD 5,000 UNIT/0.5 ML VIAL SQ SCH (20:04)
[2023-01-17] MEDS: SODIUM CHLORIDE 0.9% 1000ML 1,000 ML IV SCH ×2 (00:31→10:50)
[2023-01-17] MEDS: LEVOTHYROXINE SODIUM 112 MCG TABLET PO SCH (06:24)
[2023-01-17 08:07] LABS: BUN Creatinine Ratio 12.9 (10-20); Calcium 8.5 mg/dl (8.6-10.3); Est GFR (African American) 68.3 ml/min; Est GFR (Non-African American) 58.9 ml/min; Potassium 3.8 mmol/L (3.5-5.1)
[2023-01-17 08:15] LABS: Basophils # (auto) 0.05 K/uL (0-0.2); Basophils % (auto) 1.1 %; Eosinophils # (auto) 0.36 K/uL (0-0.50); Eosinophils % (auto) 7.8 %; Hematocrit (blood only) 36.4 % (42.0-52.0); Hemoglobin 12.6 g/dl (14.0-18.0); Immature Granulocytes # (auto) 0.01 K/uL (0.01-0.20); Immature Granulocytes % (auto) 0.2 %; Lymphocytes # (auto) 0.94 K/uL (1.2-3.4); Lymphocytes % (auto) 20.3 %; Mean Corpuscular Hemoglobin 34.1 pg (25.0-34.0); Mean Corpuscular Hgb Conc 34.6 g/dL (32.0-36.0); Mean Corpuscular Volume 98.4 fL (80.0-100.0); Mean Platelet Volume 10.4 fL (9.4-12.4); Monocytes # (auto) 0.37 K/uL (0.11-0.59); Neutrophils % (auto) 62.6 %; Platelet Count 133 K/uL (130-400); RDW Coefficient of Variation 13.1 % (11.5-14.5); RDW Standard Deviation 46.8 fL (36.4-46.3); White Blood Count 4.63 K/ul (4.8-10.8)
[2023-01-17] MEDS: HEPARIN SOD 5,000 UNIT/0.5 ML VIAL SQ SCH ×2 (08:56→21:52)
[2023-01-17] MEDS: THIAMINE HCL 100 MG TAB PO SCH (08:56)
[2023-01-17] MEDS: INSULIN ASPART PER UNIT CHARGE SC SCH ×3 (08:56→17:45)
[2023-01-17] MEDS: ASPIRIN 81 MG ECTAB PO SCH (08:56)
[2023-01-17] MEDS ORDERED: hydrALAZINE HCL 20 MG/ML VIAL IV PRN (12:18)
[2023-01-17] MEDS ORDERED: lisinopril 5 MG TAB PO ONE (12:30)
[2023-01-17] MEDS ORDERED: FUROSEMIDE INJ 20 MG/2 ML VIAL IV ONE (17:37)
[2023-01-17] MEDS ORDERED: cloNIDine HCL 0.1 MG TAB PO ONE (17:44)
--- NOTE | 2023-01-17 17:54 | Hospitalist Progress Note ---
Date of Service January 17, 2023 Assessment & Plan (1) Acute encephalopathy: Plan: Acute/unstable - high risk improving - Metabolic encephalopathy likely secondary to prolonged hypoglycemia +/- seizure added thiamine daily, improved his mental condition - Neurology consultation feels this is encephalopathy from prolonged hypoglycemia with mild cortical injury but feels that the patient has good prognosis but may take weeks to improve back to baseline recommending supportive care no additional adjunctive testing recommended at this time - no obvious s/sx concerning for acute infection - CXR with pulmonary edema - Dose of IV Lasix 20mg x1 given resolution of any significant respiratory distress - Prolactin not significantly elevated - Urine tox screen negative and LAYLA is negative -Repeat CT head unrevealing for acute hemorrhage sinus disease seen Carotid Dopplers showed a 50 to 79% stenosis of the LICA will need to be addressed as an outpatient initiate aspirin therapy (2) Type 1 diabetes mellitus: Plan: Chronic/unstable - Suspect he's having hypoglycemic episodes, perhaps more frequently than realized - Reviewed records, last a1c is 6.1% in Sep 2022 - Insulin pump removed - -D5 discontinued pharmacy glycemic consult enacted - NPO until patient is awake and appropriate for oral intake (3) CKD (chronic kidney disease), stage III: Plan: Chronic/stable - Baseline creatinine ~1.5 - (4) Hypothyroidism: Plan: Chronic/stable - Continue Levothyroxine (5) Hypertension: Plan: Chronic/unstable - starting lisinopril prn hydralazine one dose of clonidine History noted but currently not taking any antihypertensives Will monitor BP and treat accordingly Plan Will place on Lovenox for DVT ppx. Admission and Anticipated Discharge Date Admission Date: January 14, 2023 Subjective Patient is awake and conversant more oriented now seems back to baseline No focal complaints or problems is pleasant cooperative Physical Exam Physical Exam: Patient was conversant interactive follows commands Cardiac exam appeared to be regular he does have a history of pacemaker placement Lungs are clear Neurologically he has no focal deficits and his memory is returning Results & Data Results & Data Vital Signs (Past 12 Hours) Vital Signs Temp Pulse Pulse Pulse Resp BP BP 01/17/23 17:06 97.9 F 97 H 18 195/97 H 01/17/23 15:40 95 H 01/17/23 14:03 187/85 H 187/85 H 01/17/23 11:00 98.2 F 83 18 193/98 H 193/92 H 01/17/23 09:00 01/17/23 07:29 97.7 F 88 17 174/81 H 01/17/23 07:00 77 Pulse Ox O2 Del Method 01/17/23 17:06 100 Room Air 01/17/23 15:40 01/17/23 14:03 01/17/23 11:00 99 Room Air 01/17/23 09:00 Room Air 01/17/23 07:29 97 Room Air 01/17/23 07:00 Laboratory Results reviewed cbc reviewed prp PG Care Time/CCT Total # of Minutes Spent Total Time Spent with Patient: Total time spent is greater than 50% in coordination of care (as documented) at patient's floor/unit and/or counseling patient: Coding Level of Care Code 90912 SUB INP/OBS CARE 2/35MIN Diagnoses Acute encephalopathy G93.40 Type 1 diabetes mellitus E10.9 CKD (chronic kidney disease), stage III N18.30 Hypothyroidism E03.8; 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
[2023-01-17] MEDS ORDERED: INSULIN ASPART 100 UNITS/ML VIAL SC PRN (21:00)
[2023-01-17] MEDS: INSULIN, Rapid-Acting PUMP SCH (21:53)
[2023-01-18] MEDS: LEVOTHYROXINE SODIUM 112 MCG TABLET PO SCH (06:11)
--- NOTE | 2023-01-18 07:15 | Pharmacy Report ---
Pharmacy Glycemic Sign Off Nt - Date of Service January 18, 2023 - Assessment & Plan ASSESSMENT: * Pharmacy was consulted by Dr Rolon on 01/14/23 for glycemic control and to write orders per [facility] inpatient glycemic control protocol. * Major changes made by pharmacy to antidiabetic regimen include: * addition of SC basal/bolus * Patient has been receiving/requiring 10-15 units of insulin per day for adequate glycemic control * Regimen has only required minor adjustments over the past 48hrs to achieve this level of control PLAN FOR INPATIENT GLYCEMIC CONTROL: Pt is to manage BSGs with insulin pump per outpatient settings. * RN will have patient read and sign agreement CF [id number] Insulin Pump Therapy Patient Agreement. * RN will provide and explain form [id number] Flowsheet for Patient * Patient will document their insulin dose given on [id number] which is kept at the bedside, available to caregivers upon request, and which becomes part of the permanent medical record. * Insulin pump excluded from pharmacy consult. Will sign off. If at any time the patients condition evidences that he/she is not able to manage the insulin pump (i.e. frequent hypo/hyperglycemia) Pharmacy will assume glycemic control by discontinuing the pump & managing with SQ basal bolus insulin regimen for the interim. * Pharmacy is signing off of glycemic consult and will no longer be making adjustments to inpatient regimen. Please feel free to re-consult if transition back to SC basal/bolus is warranted. Thank you.
[2023-01-18 07:41] LABS: Calcium 8.7 mg/dl (8.6-10.3); Potassium 3.6 mmol/L (3.5-5.1)
[2023-01-18 07:53] LABS: BUN Creatinine Ratio 15.3 (10-20); Creatinine Clr Calc Pharmacy 40.1 ml/min; Est GFR (Non-African American) 49.2 ml/min
[2023-01-18] MEDS: INSULIN, Rapid-Acting PUMP SCH ×2 (08:32→12:21)
[2023-01-18] MEDS: THIAMINE HCL 100 MG TAB PO SCH (08:34)
[2023-01-18] MEDS: HEPARIN SOD 5,000 UNIT/0.5 ML VIAL SQ SCH (08:34)
[2023-01-18] MEDS: ASPIRIN 81 MG ECTAB PO SCH (08:34)
[2023-01-18] MEDS ORDERED: lisinopril 5 MG TAB PO SCH (09:00)
--- NOTE | 2023-01-18 13:58 | Discharge Summary ---
Date of Service January 18, 2023 Admission HPI Per Admitting Provider Eduard Palacios is a 67 yo M with a pmhx of complete AV block with PPM insertion in 2018, CKD, hypothyroidism and DMT1 managed with insulin pump and electronic glucose monitoring system who presented to the ER this AM due to altered mental status. Patient is unable to provide a history and subsequently history is obtained from records, family, and ED provider. Patient was last known normal by his around 930pm yesterday evening. She awoke this morning and heard him making a grunting noise downstairs. When she went down to check on him, she noted that he had diffuse body shaking/tremoring in addition to kicking his legs. She immediately called EMS. Upon their arrival, pt was found to have a blood glucose of 28. He was given a dose of D10 and his BSG improved to 140s. However, he became combative and was not following commands. Upon arrival to the ER, he was medicated with a dose of IV Ativan 1mg x1 with minimal improvement. His BSG trended down in the ER to 69 and he was given two amps of D50 with improvement in his sugar to 270s. His preliminary blood work demonstrates a normal wbc count with a minimal left shift. He has no electrolyte abnormalities and is not acidotic. His blood gases were normal. He underwent a CT head which demonstrated some progressive sinus disease but otherwise no acute intracranial abnormality detected. Reportedly, he had a GCS of 8 and was felt to requiring intubation for airway protection. ET intubation was carried out by ER provider. At the time of my assessment, which occurred simultaneously with learning disabilities resource teacher, pt was intubated and unable to follow commands or answer any questions. He was placed on propofol for sedation. His UA was not significant for infection, urine tox screen was normal, and his LAYLA was negative. CXR is pending. He was referred for admission to the hospitalist service for ongoing care. Family reports that his last diabetes visit was about 3 months ago with Eliecer Siegel PA-C. They do not believe that the patient has been forthright in [place] of his eating habits. Family notes that he obsessed over carbohydrate consumption and has very little if any carbs. He also obsesses over his BS levels and will dose himself for BSG of 145 or in anticipation of what he might eat and then does not eat that amount. According to his last note, Eliecer recommending increasing his carb ratio, but it is unclear if the patient has been compliant with this. Principal Diagnosis Hypoglycemic seizure Hypoglycemic encephalopathy Hypertension Left internal carotid artery stenosis Discharge Exam Patient awake alert appropriate no focal deficits has some bruising on his arms Discharge Data Allergies Allergy/AdvReac Type Severity Reaction Status Date / Time No Known Drug Allergies Allergy Verified 12/13/22 09:23 Consultations 01/14/23 09:32 ED Decision to Admit Stat 01/15/23 08:24 Consult Neurology Routine Ordered Studies Chest X-Ray 01/14/23 08:04 XR chest 1V portable HISTORY: weakness COMPARISON: Chest 11/30/2020. FINDINGS: No pneumothorax. No pleural effusions. The cardiac silhouette is normal in size. There are mitral anus calcifications and left-sided dual-chamber pacemaker. There are hilar hazy airspace opacities and interstitial thickening consistent with pulmonary edema. IMPRESSION: Povi-wd-pujeguol pulmonary edema. ACT 112: Negative or not required by law. Electronically signed by: Jose Eduardo Diaz M.D. 01/14/2023 10:[address] 01/14/23 08:[address] DOSE: HISTORY: Altered mental status. Unresponsive. TECHNIQUE: Multiaxial CT images of the head were performed without the use of intravenous contrast. Automated exposure control was utilized for this study. A dose lowering technique was utilized adhering to the principles of ALARA. Comparison: Head CT 03/24/2018. Findings: Motion artifact resulting in suboptimal evaluation of the brain. There is complete opacification of the frontal sinuses, ethmoid air cells, and sphenoid sinuses. Trace right and moderate left maxillary sinus fluid collections are noted. The opacified sinuses and fluid levels are slightly hyperdense. This could represent inspissated secretions. Overall, this has progressed compared to the prior study. The mastoid air cells are clear. 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 The ventricles and sulci are within normal limits for age. There is no definite mass, hematoma, midline shift, acute infarct. Impression: 1. Motion artifact resulting in suboptimal evaluation of the brain. No definite acute intracranial abnormality. 2. Progressive sinus disease as described above. ACT 112: Negative or not required by law. Electronically signed by: Jose Eduardo Diaz M.D. 01/14/2023 8:57 AM Head CTA 01/14/23 08:13 HEAD & NECK CTA HISTORY: Altered mental status TECHNIQUE: Multiaxial CT images of the head were performed following the intravenous administration of contrast to evaluate the major cerebral vessels. Multiaxial CT images of the neck were also performed following the intravenous administration of contrast to evaluate the major cervical vessels. Maximum intensity projection images were also obtained. A dose lowering technique was utilized adhering to the principles of ALARA. COMPARISON: Noncontrast head CT 01/14/2023. FINDINGS: Motion artifact results in suboptimal evaluation of the distal cerebral arteries. There is no mass, hematoma, midline shift, or acute infarct. Visualized intracranial internal carotid arteries, distal vertebral arteries, and basilar artery are widely patent. There is no significant stenosis, occlusion, or aneurysm seen within the bilateral ACAs, MCAs, or gun number. The major dural venous sinuses are patent. Moderate calcified plaque within the bilateral carotid siphons. Extensive paranasal sinus disease again noted. Suboptimal evaluation due to motion artifact. The aortic arch and proximal great vessels are widely patent. Moderate calcified plaque within the bilateral carotid bifurcations. This results in approximately 50% stenosis at the takeoff of the right internal carotid artery. There appears a moderate to severe stenosis within the takeoff of the left internal carotid artery due to the calcified plaque. This is suboptimally assessed due to the motion artifact. The mid to distal bilateral internal carotid arteries appear patent. The bilateral common carotid arteries are patent. No evidence for a dissection. The bilateral vertebral arteries appear widely patent. No pneumothorax. Interlobular septal thickening with patchy groundglass densities posteriorly within the lung apices. This is consistent with pulmonary edema. A superimposed pneumonitis would be difficult to exclude but considered less likely. IMPRESSION: 1. Motion artifact resulting in suboptimal evaluation. 2. No definite stenosis, occlusion, or aneurysm within the [place]. 3. Probable moderate to severe stenosis within the takeoff of the left external carotid artery which is suboptimally assessed due to the motion artifact. This can be further evaluated with nonemergent carotid Doppler study. 4. Approximately 50% stenosis at the takeoff of the right internal carotid artery due to the calcified plaque. 5. The bilateral vertebral arteries appear patent. 6. Interlobular septal thickening with patchy groundglass densities posteriorly within the lung apices. This is consistent with pulmonary edema. A superimposed pneumonitis would be difficult to exclude but considered less likely. ACT 112: Negative or not required by law. Electronically signed by: Jose Eduardo Diaz M.D. 01/14/2023 9:07 AM Neck CTA 01/14/23 08:13 HEAD & NECK CTA HISTORY: Altered mental status TECHNIQUE: Multiaxial CT images of the head were performed following the intravenous administration of contrast to evaluate the major cerebral vessels. Multiaxial CT images of the neck were also performed following the intravenous administration of contrast to evaluate the major cervical vessels. Maximum intensity projection images were also obtained. A dose lowering technique was utilized adhering to the principles of ALARA. COMPARISON: Noncontrast head CT 01/14/2023. FINDINGS: Motion artifact results in suboptimal evaluation of the distal cerebral arteries. There is no mass, hematoma, midline shift, or acute infarct. Visualized intracranial internal carotid arteries, distal vertebral arteries, and basilar artery are widely patent. There is no significant stenosis, occlusion, or aneurysm seen within the bilateral ACAs, MCAs, or gun number. The major dural venous sinuses are patent. Moderate calcified plaque within the bilateral carotid siphons. Extensive paranasal sinus disease again noted. Suboptimal evaluation due to motion artifact. The aortic arch and proximal great vessels are widely patent. Moderate calcified plaque within the bilateral carotid bifurcations. This results in approximately 50% stenosis at the takeoff of the right internal carotid artery. There appears a moderate to severe stenosis within the takeoff of the left internal carotid artery due to the calcified plaque. This is suboptimally assessed due to the motion artifact. The mid to distal bilateral internal carotid arteries appear patent. The bilateral common carotid arteries are patent. No evidence for a dissection. The bilateral vertebral arteries appear widely patent. No pneumothorax. Interlobular septal thickening with patchy groundglass densities posteriorly within the lung apices. This is consistent with pulmonary edema. A superimposed pneumonitis would be difficult to exclude but considered less likely. IMPRESSION: 1. Motion artifact resulting in suboptimal evaluation. 2. No definite stenosis, occlusion, or aneurysm within the [place]. 3. Probable moderate to severe stenosis within the takeoff of the left external carotid artery which is suboptimally assessed due to the motion artifact. This can be further evaluated with nonemergent carotid Doppler study. 4. Approximately 50% stenosis at the takeoff of the right internal carotid artery due to the calcified plaque. 5. The bilateral vertebral arteries appear patent. 6. Interlobular septal thickening with patchy groundglass densities posteriorly within the lung apices. This is consistent with pulmonary edema. A superimposed pneumonitis would be difficult to exclude but considered less likely. ACT 112: Negative or not required by law. Electronically signed by: Jose Eduardo Diaz M.D. 01/14/2023 9:07 AM Carotid Doppler Study 01/14/23 10:51 BILATERAL CAROTID DOPPLER STUDY HISTORY: Abnormal CTA. Evaluate for carotid stenosis. COMPARISON: CTA neck 01/14/2023. TECHNIQUE: Real-time, grayscale, and color Doppler sonography of the carotid arteries was performed. Imaging reviewed in the transverse and longitudinal planes. All measurements were calculated based on NASCET criteria. FINDINGS: Only the right vertebral artery was able to be visualized on this examination and appears to demonstrate antegrade flow. Of note, the left vertebral artery was patent on the same day neck CTA. Mild right and moderate left proximal carotid artery calcified plaque. The peak systolic velocity within the right ICA is 86 cm/s.. The right systolic ratio is 1.1. The peak systolic velocity within the left ICA is 170 cm/s proximally. The left carotid artery was not well visualized due to the patient's condition, therefore, the left systolic ratio was unable to be obtained. IMPRESSION: 1. Suboptimal study due to the patient's condition. 2. Likely 50-79% stenosis within the proximal left internal carotid artery as described above. This can be reassessed once the patient's condition has improved. 3. No hemodynamically significant stenosis within the right carotid arteries. ACT 112: Negative or not required by law. Electronically signed by: Jose Eduardo Diaz M.D. 01/14/2023 5:[address] 01/15/23 08:17 CT head/brain wo con CLINICAL HISTORY: F/U r/o cva Technique: Contiguous axial CT images of the head were acquired from the base of the skull to the vertex without intravenous contrast administration. Images were viewed in brain, subdural and bone windows. Automated dose lowering techniques and/or adjustment according to patient size were utilized for this exam. Comparison: Comparison is made to CTA head and neck 01/14/2023 Findings: Areas of decreased attenuation are present in the periventricular and subcortical white matter bilaterally consistent with small vessel ischemic disease. Generalized cerebral atrophy with commensurate enlargement of the ventricles, sulci, and cisterns is also present. There is no acute intracranial hemorrhage or evidence of acute territorial infarction. No shift of the midline structures, mass effect, or extra-axial abnormalities are shown. Atherosclerotic calcifications are present in the intracranial segments of the internal carotid arteries. Bilateral maxillary sinus disease is seen. There is opacification of the frontal, ethmoid, and sphenoid sinuses. The orbits appear normal. There are no acute fractures of the calvaria or scalp swelling. Impression: 1. No acute intracranial hemorrhage, no evidence of acute territorial infarction or other acute intracranial disease process. 2. Extensive sinus disease. ACT 112: Negative or not required by law. Electronically signed by: Andrew Jeter M.D. 01/15/2023 9:21 AM Hospital Course (1) Acute encephalopathy: Acute/unstable - high risk improving - Metabolic encephalopathy likely secondary to prolonged hypoglycemia +/- seizure added thiamine daily, improved his mental condition - Neurology consultation feels this is encephalopathy from prolonged hypoglycemia with mild cortical injury recommending supportive care no additional adjunctive testing recommended at this time - no obvious s/sx concerning for acute infection - CXR with pulmonary edema - Dose of IV Lasix 20mg x1 given resolution of any significant respiratory distress - Prolactin not significantly elevated - Urine tox screen negative and LAYLA is negative -Repeat CT head unrevealing for acute hemorrhage sinus disease seen Carotid Dopplers showed a 50 to 79% stenosis of the LICA will need to be addressed as an outpatient initiate aspirin therapy (2) Type 1 diabetes mellitus: Chronic/unstable - Suspect he's having hypoglycemic episodes, perhaps more frequently than realized - Reviewed records, last a1c is 6.1% in Sep 2022 - Insulin pump replaced today before discharge patient did have 1 blood sugar reading of 43. Patient had his pump adjusted by our export documents clerk with instructions to the patient to not be as aggressive as he has been treating his carb ratio. Patient voiced understanding of the same 1 I discharged him. Patient have a follow-up with endocrinology within a week - (3) CKD (chronic kidney disease), stage III: Chronic/stable - Baseline creatinine ~1.5 Adding lisinopril therapy to help with hypertension and secondary risk reduction for carotid artery stenosis - (4) Hypothyroidism: Chronic/stable - Continue Levothyroxine (5) Hypertension: Chronic/unstable - starting lisinopril Total Time Total Time Spent Total Time Spent (In Minutes): It required greater than 30 minutes to prepare this patient for discharge Discharge Plan Discharge Items Patient Disposition: Home - Home Health Services Reason For Visit: HYPOGLYCEMIC SEIZURE, ENCEPHALOPATHY Discharge Diagnosis: hypoglycemic seizure and encephalopathy left carotid artery narrowing high blood pressure Activity: Resume your previous activity Non-emergency contact: Primary Care Provider and Specialist Call non-emergency contact if: your symptoms worsen Follow-up/Referrals: Alfred Gage MD [Primary Care Provider] - 01/25/23 3:00 pm Diet: Carb Consistent or DM2 Addtl Attending Provider Instructions: please try to allow a bit more leniency in your carbohydrate coverage to avoid low blood sugars follow up with endocrinology as soon as able During testing it was found near the beginning of some narrowing of your internal carotid artery which is one of the main arteries that supplies blood to your brain. It is not yet seem to be at a critical area but should be followed by your family physician for this and it would be recommended that you start an aspirin a day. Additionally your blood pressure was markedly elevated during her hospital stay starting a medicine like lisinopril can help protect your kidneys from the effects of diabetes and also control your blood pressure which could benefit from a also reducing the progression of your internal carotid artery stenosis Pending Studies at Discharge: No Stand-Alone Forms: [facility] Oration, Smoking Cessation Medications and DC Order Prescriptions: New aspirin 81 mg Tablet,Delayed Release (Dr/Ec) 81 mg PO QAM Qty: 30 4RF lisinopril [Zestril] 5 mg Tablet 5 mg PO QAM Qty: 30 4RF Continued folic acid 1 mg tablet 1 mg PO QAM Qty: 90 3RF Rx Instructions: Per [facility] pharmacist directions are 2 tabs po am (DME) Contour Next Test Strips Strip See Rx Instructions .ROUTE .MEDSUPPLY Qty: 100 3RF Rx Instructions: test blood sugar 1 x daily insulin lispro [Humalog U-100 Insulin] 100 unit/mL solution 50 unit continuous subcutaneous infusion DAILY 90 Days Qty: 5 3RF Rx Instructions: called and verified with pharmacist from [facility] levothyroxine 112 mcg tablet 112 mcg PO DAILY 90 Days Qty: 90 1RF Rx Instructions: called and verified medication with Pharmacist at [facility] 01/14/23 methotrexate sodium 2.5 mg tablet 10 mg PO WEEKLY Qty: 72 Rx Instructions: on monday Verified with [facility] pharmacist pt is to take 4 tabs (2.5mg) weekly (DME) Dexcom G6 Sensor Device See Rx Instructions .ROUTE .MEDSUPPLY Qty: 3 Rx Instructions: As directed (DME) Dexcom G6 Supply Chain Project Manager Misc See Rx Instructions .ROUTE .MEDSUPPLY Qty: 1 Rx Instructions: As directed (DME) Dexcom G6 Transmitter Device See Rx Instructions .ROUTE .MEDSUPPLY Qty: 1 Rx Instructions: As directed (DME) MiniMed 670G Insulin Pump Misc See Rx Instructions .ROUTE .MEDSUPPLY Qty: 1 Rx Instructions: As directed ferrous sulfate [Iron (ferrous sulfate)] 325 mg (65 mg iron) Tablet 0 mg PO QAM Rx Instructions: Neither pharmacies have any record of this medication. Possible OTC cholecalciferol (vitamin D3) [Vitamin D3] 1,000 unit Capsule 0 unit PO QAM Rx Instructions: Neither pharmacies have any record of this medication. Possible OTC sildenafil 100 mg tablet PO DAILY PRN (Reason: sexual activity) Rx Instructions: Neither pharmacies could verify this prescription 01/14/23 take one half to one tablet 30 minutes to 4 hours before activity fluticasone propionate [Flovent HFA] 44 mcg/actuation HFA aerosol inhaler 0 puff INH BID Rx Instructions: [facility] pharmacist said they last shipped this in May 12 Discharge Orders: Discharge Order (Routine); Ordered 01/18/23 Ordered By: Nathan Key Admission Data Admit Date/Time: 01/14/23 10:24 Attending Provider: Nathan Key Admit Provider: Sandor Pizarro Primary Care Provider: Alfred Gage Other Providers: Sandor Pizarro Coding Level of Care Code 04027 INP/OBS DISCH >30 MIN Diagnoses Acute encephalopathy G93.40 Type 1 diabetes mellitus E10.9 CKD (chronic kidney disease), stage III N18.30 Hypothyroidism E03.8; E06.3 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
== END 2023-01-18 14:50 | disposition home or self-care (01) | DRG 637 ==
LOC: ED 07:57 → SUATTDRO 10:24 → 1E 10:24 → 2N 01-16 18:50